=== PATIENT | male | born 1955 | race Caucasian/White ===

== ENCOUNTER → 2016-11-08 | Outpatient (CLI) | payer BC ==
--- NOTE | 2016-11-08 13:57 | XR ---
EXAMINATION TYPE: XR knee complete bilateral DATE OF EXAM: 11/08/2016 1:50 PM CLINICAL HISTORY: pain TECHNIQUE: Three views of the right knee are obtained. COMPARISON: None. FINDINGS: There is no acute fracture/dislocation. Mild narrowing the medial tibiofemoral joint space with intracondylar spur formation. Small upper pole patellar spur. The overlying soft tissue appears unremarkable. IMPRESSION: There is no acute fracture or dislocation. Degenerative changes as discussed. ICD 10 NO FRACTURE, INITIAL EVALUATION EXAMINATION TYPE: XR knee complete bilateral DATE OF EXAM: 11/08/2016 1:50 PM CLINICAL HISTORY: pain TECHNIQUE: Three views of the left knee are obtained. COMPARISON: None. FINDINGS: There is no acute fracture/dislocation. Mild narrowing medial tibiofemoral joint space. Mi ld intracondylar spur formation. Small suprapatellar spur and small suprapatellar joint effusion. The overlying soft tissue appears unremarkable. IMPRESSION: There is no acute fracture or dislocation. Degenerative changes as noted. ICD 10 NO FRACTURE, INITIAL EVALUATION
== END | disposition home or self-care (01) ==
LOC: MERGE 13:25 → RADXRMAIN 13:25
PROVIDERS: ATTEND Family Medicine
DX: M17.0 Bilateral primary osteoarthritis of knee (principal)

== ENCOUNTER → 2017-01-20 | Outpatient (CLI) | payer BC ==
--- NOTE | 2017-01-20 12:43 | EST ---
DATE OF SERVICE: 01/20/2017 AGE: 61Y SEX: M HT: 70 WT: 235 lbs. Protocol Yonathan: X Other: Stage: II Dur. of Exercise: 6 minutes *Heart Rate Blood Pressure *Rest: 82 Rest: 141/91 * *Max. Achieved: 134 Maximum BP: 199/90 85% PMHR: 134 100% PMHR: 158 *METS: 7.3 INDICATION OF THE STUDY: Chest pain. MEDICATIONS: STRESS TEST: Pretesting physical examination showed heart rate of 82, pressure is 141/91 mmHg, Baseline EKG shows sinus mechanism. The patient exercised on the treadmill according to Yonathan protocol for a total of 6 minutes and achieved 7.3 METs. Max heart rate was 134, which is about 85% of maximum predicted heart rate. Maximum blood pressure was 199/90 mmHg. Clinically, the patient did not have any symptoms of chest pain or discomfort, but there was about [address] segment changes during the peak exercise. CONCLUSION: 1. Average exercise capacity. 2. Abnormal EKG in response to exercise with evidence of ST changes consistent with ischemia.
== END | disposition home or self-care (01) ==
LOC: MERGE 01-03 11:15 → RADNMMAIN 10:06
PROVIDERS: ATTEND Family Medicine
DX: R94.31 Abnormal electrocardiogram [ECG] [EKG] (principal); I10 Essential (primary) hypertension; R53.83 Other fatigue
CPT/HCPCS: 93017

== ENCOUNTER → 2017-01-21 | Outpatient (CLI) | payer BC ==
[2017-01-21 16:07] LABS: CH 31.4; CHCM 34.1; HCT 51.3 % (39.0-53.0); HDW 2.65; HGB 17.1 gm/dL (13.0-17.5); MCH 30.8 pg (25.0-35.0); MCHC 33.3 g/dL (31.0-37.0); MCV 92.6 fL (80.0-100.0); Mean Platelet Volume 8.3; RBC 5.54 m/uL (4.30-5.90); RDW 13.6 % (11.5-15.5); WBC 6.4 k/uL (3.8-10.6)
[2017-01-21 16:23] LABS: Anion Gap 13 mmol/L; Blood Urea Nitrogen 17 mg/dL (9-20); Carbon Dioxide 23 mmol/L (22-30); Chloride 104 mmol/L (98-107); Non-African American GFR(MDRD) >60 (>60 ml/min/1.73 sqM); Potassium 4.5 mmol/L (3.5-5.1); Sodium 140 mmol/L (137-145)
== END ==
LOC: LABPAT 15:18
PROVIDERS: ATTEND Internal Medicine Interventional Cardiology
DX: Z01.812 Encounter for preprocedural laboratory examination (principal); R94.30 Abnormal result of cardiovascular function study, unspecified
CPT/HCPCS: 80051; 82565; 84520; 85027

== ENCOUNTER 2017-01-28 08:39 | Day surgery (SDC) | payer BC ==
[2017-01-25 15:19] VITALS: BMI 31.8
[~2017-01-28 08:39] MED LIST: ALPRAZolam 0.25 MG TAB PO PRN; ALPRAZolam 0.5 MG TAB PO PRN; ASPIRIN 325 MG TAB PO STA; ATORVASTATIN 80 MG TAB PO STA; NITROGLYCERIN SL TABS 0.4 MG TAB SUBLINGUAL PRN; SODIUM CHLORIDE 0.9% 1,000 ML in EMPTY BAG 1 BAG IV ONE
[2017-01-28 09:46] VITALS: PULSE 60; TEMP 98.4
[2017-01-28] MEDS ORDERED: VERAPAMIL 2.5 MG/ML 2 ML AMP ONE (10:35)
[2017-01-28] MEDS ORDERED: MIDAZOLAM 2 MG/2 ML VIAL ONE (10:35)
[2017-01-28] MEDS ORDERED: LIDOCAINE 2% INJ 20 MG/ML (20 ML MDV) ONE (10:35)
[2017-01-28] MEDS ORDERED: IV FLUID CONTINUATION 1,000 ML IV ONE (10:41)
[2017-01-28] MEDS ORDERED: MIDAZOLAM 2 MG/2 ML VIAL IVP ONE (10:43)
[2017-01-28] MEDS ORDERED: LIDOCAINE 2% INJ 20 MG/ML SQ ONE (10:53)
[2017-01-28] MEDS: VERAPAMIL SYRINGE (5 MG/10 ML) INTRAARTER ONE ×2 (10:55→11:17)
[2017-01-28] MEDS ORDERED: HEPARIN SODIUM 1,000 UNIT/ML VIAL IV ONE (10:56)
[2017-01-28] MEDS ORDERED: HYDROmorphone 2 MG/ML 1 ML SYRINGE ONE (11:03)
[2017-01-28] MEDS ORDERED: HYDROmorphone 2 MG/ML 1 ML SYRINGE IVP ONE (11:04)
[2017-01-28] MEDS ORDERED: NITROGLYCERIN 1000MCG/10ML SYRINGE INTRACORON ONE (11:05)
[2017-01-28] MEDS ORDERED: IOHEXOL 350 MG/ML 125ML BOTTLE INJ ONE (11:17)
[2017-01-28] MEDS ORDERED: RX INFO: IV CONTRAST WAS GIVEN 1 EACH MISC MISCELLANE PRN ×2 (11:35→11:36)
[2017-01-28] MEDS ORDERED: SODIUM CHLORIDE 0.9% 1,000 ML IV SCH (11:45)
[2017-01-28 16:19] VITALS: BP 143/82; RESP 18
--- NOTE | 2017-01-28 21:53 | CC ---
DATE OF SERVICE: 01/28/2017 PERFORMING PHYSICIAN: Reinaldo Frias M.D., forest technician. PROCEDURES PERFORMED: 1. Selective right and left coronary angiogram. 2. Left heart catheterization. 3. Left ventriculography. INDICATION: This is a pleasant 61-year-old gentleman who was feeling tired and fatigued lately. He underwent a stress test which turned out to be equivocal and he was brought today to undergo a heart catheterization to rule out any severe underlying CAD. APPROACH: Right radial artery. COMPLICATIONS: None. LEVEL OF SEDATION: Moderate, with a sedation length of 27 minutes. PROCEDURE DESCRIPTION: After obtaining informed consent, the patient was brought to the cardiac label printer. Right radial artery was cannulated using micropuncture technique. The micropuncture wire passed easily. Then I placed a 6 Ghanaian sheath in the right radial artery. Subsequently I gave the patient 2 mg of Verapamil IA and 3000 units of heparin IV. After that I did selective right and left coronary angiogram using JR4 and JL3.5 5 Ghanaian catheters. Subsequently I did left heart catheterization and LV gram using a 5 Ghanaian pigtail catheter. The procedure was completed without any complications. SELECTIVE CORONARY ANGIOGRAM: 1. The right coronary artery is a large-caliber vessel and it is a dominant vessel. The proximal RCA appeared to have mild disease only. The mid RCA has a tubular lesion that seems to be diseased up to about 70%. The RCA distally by the bifurcation into PDA and PLV branches appeared to have a severe lesion in the range of 80%. The PLV branch seems to be bigger than the PDA branch and appeared to have mild disease only. 2. The left main is angiographically normal. It bifurcates into the left circumflex, ramus intermedius and left anterior descending artery. 3. The left circumflex is a medium-caliber vessel and it is a non-dominant vessel. The ostial left circumflex appeared to have a lesion in the range of 70%. The mid and distal left circumflex appeared to have mild disease only. As I mentioned, the left circumflex is a small- to medium-caliber vessel. 4. The ramus intermedius is a medium-caliber vessel with ostial disease that seems to be in the range of 50%. 5. The LAD. The proximal LAD by the bifurcation of the diagonal appeared to have a tubular lesion in the range of 50%. The LAD in the proximal portion gives rise to a large diagonal branch which has a long tubular lesion involving the ostium that appeared to be in the range of 80% to 90%. The mid LAD appeared to have mild disease only. The mid to distal LAD after the second diagonal, which is a medium-sized diagonal, appeared to have another lesion in the range of 80% to 90%. HEMODYNAMICS: The left ventricular end-diastolic pressure was 10 mmHg, and no gradient was identified across the aortic valve. Left ventriculography was performed in the SALAZAR projection using a power injection. The left ventricular systolic function seems to be normal with EF about 50% without any wall motion abnormalities noted. CONCLUSION: 1. Severe triple-vessel coronary artery disease. 2. Severe disease involving the mid and distal right coronary artery. 3. Severe disease involving the ostial left circumflex, which is a small- to medium-caliber vessel. 4. Severe disease involving the ostial and proximal large first diagonal branch. 5. Severe disease involving the mid to distal LAD. POST-PROCEDURE MANAGEMENT: I will let the patient go home today. I will refer for the patient to have open heart surgery as an outpatient.
--- NOTE | 2017-01-28 21:55 | LTR ---
January 28, 2017 RE: Pro Chen Sahil Dear Valdo, Mr. Pro Chen underwent heart catheterization that showed severe triple-vessel coronary artery disease. I am going to refer the patient to undergo coronary artery bypass grafting as an outpatient. I want to thank you for allowing me to participate in his care. Please do not hesitate to call with any questions or concerns. Sincerely, VERONICA HARRISON MD
--- NOTE | 2017-02-11 14:13 | P.GSCN ---
History of Present Illness Consult date: 02/02/17 Reason for Consult: Multivessel coronary artery disease with need for surgical revascularization. Requesting physician: Reinaldo Frias History of present illness: This 62-year-old gentleman presented to cardiology office for a stress test after his primary care physician noted he had exertional dyspnea and increased fatigue. He denied any chest pain or discomfort and his EKG demonstrated sinus rhythm without any ischemic changes. The stress test was abnormal and Dr. Frias recommended heart catheterization. The catheterization was performed on 2016, which demonstrated a tubular lesion of 70% in the mid RCA, the distal RCA at the bifurcation into the PDA and PLV branches with a lesion of 80%, an ostial left circumflex with a lesion of 70%, ramus intermedius with an ostial lesion of 50%, proximal LAD at the bifurcation of the diagonal branch with a tubular lesion of 50%, a large diagonal branch with a long tubular lesion of 80- 90% and a mid to distal LAD after the second diagonal to have a lesion of 80-90% . Due to these findings, the patient was referred to Dr. Gonzalez for surgical revascularization. Review of Systems 14 point review of systems is completed and is negative except as noted. - Cardiovascular Reports as per HPI Past Medical History Past Medical History: Hypertension Additional Past Medical History / Comment(s): currently not taking any medications History of Any Multi-Drug Resistant Organisms: None Reported Past Surgical History: Orthopedic Surgery, Tonsillectomy Additional Past Surgical History / Comment(s): rt knee scope. colonoscopy. lt rotator cuff repair Past Anesthesia/Blood Transfusion Reactions: No Reported Reaction Smoking Status: Never smoker - Past Family History Mother Family Medical History: No Reported History Medications and Allergies Home Medications Medication Instructions Recorded Confirmed Type Aspirin 325 cap PO ONCE 01/28/17 01/28/17 History Losartan Potassium [Cozaar] 100 mg PO ONCE 01/28/17 01/28/17 History Allergies Allergy/AdvReac Type Severity Reaction Status Date / Time No Known Allergies Allergy Verified 01/25/17 15:10 Surgical - Exam Vital Signs Temp Pulse Resp BP Pulse Ox 98.4 F 60 20 166/99 99 01/28/17 09:44 01/28/17 09:44 01/28/17 09:44 01/28/17 09:44 01/28/17 09:44 - General well developed, well nourished, no distress, no pain - Eyes PERRL, normal ocular movement - ENT no hearing loss - Neck trachea midline - Respiratory normal expansion, normal respiratory effort, clear to auscultation - Cardiovascular Rhythm: regular Heart Sounds: normal: S1, S2 - Abdomen Abdomen: soft, non tender, bowel sounds - Genitourinary Deferred - Rectum Deferred - Integumentary no rash, no growths - Neurologic normal coordination, normal sensation - Musculoskeletal normal gait, normal posture - Psychiatric oriented to time, oriented to person, oriented to place, speech is normal, memory intact Assessment and Plan (1) Coronary artery disease Status: Acute (2) Hypertension Status: Acute Plan: The patient was seen and examined by Dr. Gonzalez. Heart catheterization results were reviewed with the patient and his . Recommendations were made for coronary artery bypass graft surgery. All risks and benefits were explained in detail by Dr. Gonzalez. The patient demonstrated understanding and consented to proceed with surgery. Preoperative testing was ordered. Our plan is for coronary artery bypass grafting surgery on 02/28/2017 pending the outcome of preoperative testing. Thank you Dr. Frias for this consult. We look forward to working with you in the care of your patient. Time with Patient: Greater than 30
== END 2017-01-28 16:39 | disposition home or self-care (01) ==
LOC: CATHCVL 08:39
PROVIDERS: ATTEND Internal Medicine Interventional Cardiology
DX: I25.110 Atherosclerotic heart disease of native coronary artery with unstable angina pectoris (principal); I10 Essential (primary) hypertension
CPT/HCPCS: 93458; 99152; 99153; C1894; J2001; J2250; J1170; J1644; Q9967

== ENCOUNTER → 2017-02-22 | Outpatient (CLI) | payer BC ==
[2017-02-22 08:41] LABS: EKG EKG PERFORMED
[2017-02-22 10:02] LABS: CH 30.6; CHCM 34.9; HCT 47.8 % (39.0-53.0); HDW 2.89; HGB 17.1 gm/dL (13.0-17.5); MCH 31.4 pg (25.0-35.0); MCHC 35.7 g/dL (31.0-37.0); Mean Platelet Volume 7.8; RBC 5.43 m/uL (4.30-5.90); RDW 12.9 % (11.5-15.5); WBC 7.3 k/uL (3.8-10.6)
[2017-02-22 10:06] LABS: Appearance,Urine Clear (Clear); Bilirubin,Urine Negative (Negative); Glucose,Urine (UA) Negative (Negative); Ketones,Urine Negative (Negative); Leukocyte Esterase,Urine Negative (Negative); Nitrite,Urine Negative (Negative); PH, Urine 5.5 (5.0-8.0); Protein,Urine Negative (Negative); Specific Gravity,Urine 1.003 (1.001-1.035); UA Billing (MACRO vs. MICRO) CHEM; Urobilinogen,Urine <2.0 mg/dL (<2.0)
[2017-02-22 10:09] LABS: INR 0.9 (<1.1); Prothrombin Time 9.7 sec (9.0-12.0)
[2017-02-22 10:31] LABS: ALT 71 U/L (21-72); AST 32 U/L (17-59); Alkaline Phosphatase 124 U/L (38-126); Anion Gap 12 mmol/L; Blood Urea Nitrogen 14 mg/dL (9-20); Calcium 9.7 mg/dL (8.4-10.2); Carbon Dioxide 26 mmol/L (22-30); Chloride 101 mmol/L (98-107); Cholesterol 119 mg/dL (<200); Glucose 98 mg/dL (74-99); HDL Cholesterol 38 mg/dL (40-60); Magnesium 2.2 mg/dL (1.6-2.3); Non-African American GFR(MDRD) >60 (>60 ml/min/1.73 sqM); Sodium 139 mmol/L (137-145); Total Bilirubin 0.9 mg/dL (0.2-1.3); Total Protein 7.1 g/dL (6.3-8.2); Triglycerides 117 mg/dL (<150)
[2017-02-22 12:06] LABS: Hemoglobin A1C 5.5 % (4.2-6.1)
[2017-02-22 12:35] LABS: Hepatitis B Surface Ag Index 0.05
[2017-02-22 12:41] LABS: Hepatitis B Core IgM Index 0.03
[2017-02-22 12:53] LABS: Hepatitis C Virus IgG Ab Negative (Negative); Hepatitis C Virus IgG Index 0.04
--- NOTE | 2017-02-22 15:18 | XR ---
EXAMINATION TYPE: XR chest 2V DATE OF EXAM: 02/22/2017 COMPARISON: Prior chest x-ray 07/22/2016 HISTORY: Presurgical, preop coronary artery bypass graft TECHNIQUE: Frontal and lateral views of the chest are obtained. FINDINGS: There is no focal air space opacity, pleural effusion, or pneumothorax seen. The cardiac silhouette size is within normal limits. Postop change noted to the left shoulder. The osseous stru ctures are intact. IMPRESSION: No acute cardiopulmonary process.
--- NOTE | 2017-03-02 10:19 | P.ARTDOP ---
Arterial Doppler LOWER EXTREMITY ARTERIAL DOPPLER: DATE OF SERVICE: 02/22/2017 Reason for study: Pre-CABG. Doppler waveforms: Altered phasic bilaterally throughout. Pulse volume recording: Normal configuration. Pressure gradients: None. Ankle-brachial indices: Greater than 1 bilaterally. Toe pressures: [] on the right, [] on the left Impression: Normal study.
--- NOTE | 2017-03-02 10:22 | P.VSCSTY ---
Greater Saphenous Vein Mapping This is bilateral lower extremity greater saphenous vein mapping. Date of service 02/22/2017 Vein quality and ultrasound appearance normal. Vein size groin right 4 x 4 groin left 4.5 x 4.5 High thigh right 4.6 x 3.4 high thigh left 4.0 x 3.3 Mid thigh right 2.5 x 2.9 mid thigh left 3.8 x 3.3 Above-knee right 2.4 x 2.0 above- knee left 2.4 x 2.4 Below knee right 1.7 x 2.0 below-knee left 2.8 x 2.1 Mid calf right 3.2 x 2.9 mid calf left 4.0 x 3.9 Ankle right 3.2 x 2.9 ankle left 4.1 x 4.3 Impression usable bilateral greater saphenous vein. Left somewhat more consistent in size. Left at the knee and below my be a bit small..
== END | disposition home or self-care (01) ==
LOC: LABWHC1 08:33
PROVIDERS: ATTEND Thoracic Surgery (Cardiothoracic Vascular Surgery)
DX: Z01.810 Encounter for preprocedural cardiovascular examination (principal); Z01.818 Encounter for other preprocedural examination
CPT/HCPCS: 36415; 71020; 80053; 80061; 80074; 81003; 83036; 83735; 83880; 84443; 84484; 85027; 85610; 85730; 87070; 87086; 93005; 93923; 93970; 94150

== ENCOUNTER 2017-02-28 05:46 | Inpatient (IN) | payer BC ==
[2017-02-17 15:58] VITALS: BMI 31.8
[~2017-02-28 05:46] MED LIST changes: +ALBUMIN HUMAN 25% 50 ML IV ONE; +ALBUMIN HUMAN 5% 500 ML IVPB ONE; -ALPRAZolam 0.25 MG TAB PO PRN; -ALPRAZolam 0.5 MG TAB PO PRN; +AMINOCAPROIC ACID 250 MG/ML 20 ML VIAL IV ONE; +AMINOCAPROIC ACID 5,000 MG in DEXTROSE 5% IN WATER 50 ML IV ONE; +ASPIRIN 325 MG TAB PO ONE; -ASPIRIN 325 MG TAB PO STA; +ATORVASTATIN 10 MG TAB PO ONE; -ATORVASTATIN 80 MG TAB PO STA; +CALCIUM CHLORIDE 100 MG/ML 10 ML SYRINGE IV ONE; +CHLORHEXIDINE GLUCONATE 15 ML CUP MUCOUS MEM ONE; +CLEVIDIPINE BUTYRATE 25 MG in EMPTY BAG 1 BAG IV ONE; +DEXTROSE 5% IN WATER 1,000 ML with POTASSIUM CHLORIDE 110 MEQ, MAGNESIUM SULFATE 16 MEQ... IV SCH; +DEXTROSE 5% IN WATER 1,000 ML with POTASSIUM CHLORIDE 25 MEQ, SODIUM CHLORIDE 4MEQ/ML V... IV SCH; +DEXTROSE 5% IVPB ONE; +DILTIAZEM 125 MG in SODIUM CHLORIDE 0.9% 100 ML IV ONE; +HEPARIN SODIUM 1,000 UN/ML (10ML VL) IV ONE; +HEPARIN SODIUM,PORCINE 5,000 UNIT in SODIUM CHLORIDE 0.9% 500 ML IV ONE; +INSULIN REGULAR 100 UNIT in SODIUM CHLORIDE 0.9% 100 ML IV ONE; +MAGNESIUM SULFATE IVPB ONE; +MAGNESIUM SULFATE MG 500 MG/ML VIAL IV ONE; +MANNITOL 25% 12.5 GM/50 ML VIAL IV ONE; -NITROGLYCERIN SL TABS 0.4 MG TAB SUBLINGUAL PRN; +NITROGLYCERIN-D5W PMX 25 MG/250 ML BTL IV ONE; +NITROGLYCERIN-D5W PMX 50 MG in DEXTROSE/WATER 1 250ML.BAG IV ONE; +NOREPINEPHRIN 4 MG-0.9% NS PMX 4 MG/250 ML ML IV ONE; +PAPAVERINE 360 MG in SODIUM CHLORIDE 0.9% 90 ML IV ONE; +PHENYLEPHRINE 40 MG in SODIUM CHLORIDE 0.9% 250 ML IV ONE; +PHENYLEPHRINE-0.9% NACL SYG 1 MG/10 ML SYRINGE IV ONE; +POTASSIUM CHLORIDE IVPB ONE; +PROPOFOL 100 ML IV ONE; +PROTAMINE SULFATE 10 MG/ML 25 ML VIAL IV ONE; +PROTAMINE SULFATE 250 MG in EMPTY BAG 1 BAG IV ONE; +SODIUM BICARB 8.4% 50 ML SYR (1 MEQ/ML) IV ONE; -SODIUM CHLORIDE 0.9% 1,000 ML in EMPTY BAG 1 BAG IV ONE; +WATER IVPB ONE; +ceFAZolin 1,000 MG in SODIUM CHLORIDE 0.9% IRRIGATIO 1,000 ML IRRIGATION ONE; +ceFAZolin 2,000 MG in SODIUM CHLORIDE 0.9% 30 ML IVPB ONE
[2017-02-28] MEDS: METOPROLOL TARTRATE 12.5 MG TAB PO ONE (06:34)
[2017-02-28] MEDS ORDERED: MIDAZOLAM 2 MG/2 ML VIAL ONE (08:42)
[2017-02-28] MEDS ORDERED: VECURONIUM 10 MG VIAL IV ONE (08:42)
[2017-02-28] MEDS ORDERED: diphenhydrAMINE 50 MG/ML 1 ML VIAL ONE (08:42)
[2017-02-28] MEDS ORDERED: HEPARIN SODIUM,PORCINE 10,000 UNIT/ML 1 ML VIAL ONE (08:42)
[2017-02-28] MEDS ORDERED: SUFentanil 50 MCG/ML 2ML AMP ONE (08:42)
[2017-02-28] MEDS ORDERED: PROPOFOL 10 MG/ML 20 ML VIAL IV ONE (08:42)
[2017-02-28] MEDS ORDERED: fentaNYL (PF) 50 MCG/ML 50 ML VIAL ONE (08:42)
[2017-02-28] MEDS ORDERED: SUCCINYLCHOLINE CHLORIDE 100 MG/5 ML SYR IV ONE (08:42)
[2017-02-28] MEDS ORDERED: fentaNYL (PF) 50 MCG/ML 2 ML AMP ONE (08:42)
[2017-02-28] MEDS ORDERED: MUPIROCIN 2% OINT 22 GM TUBE NASAL SCH (09:00)
[2017-02-28 09:35] LABS: Glucose,Whole Blood 115 mg/dL (75-99)
[2017-02-28 11:14] LABS: Glucose,Whole Blood 111 mg/dL (75-99)
[2017-02-28 11:53] LABS: Glucose,Whole Blood 189 mg/dL (75-99)
[2017-02-28 12:07] LABS: Glucose,Whole Blood 187 mg/dL (75-99)
[2017-02-28 13:03] LABS: Glucose,Whole Blood 159 mg/dL (75-99)
[2017-02-28] MEDS ORDERED: THROMBIN (BOVINE) 5,000 UNIT VIAL TOPICAL ONE (13:06)
[2017-02-28] MEDS ORDERED: GELATIN SPONGE,ABSORB (LARGE) 1 EACH SPONGE TOPICAL ONE (13:07)
[2017-02-28 14:02] LABS: Glucose,Whole Blood 128 mg/dL (75-99)
[2017-02-28] MEDS ORDERED: INSULIN REGULAR 100 UNIT in SODIUM CHLORIDE 0.9% 100 ML IV SCH (15:15)
[2017-02-28] MEDS: LACTATED RINGERS 1,000 ML IV SCH (15:15)
[2017-02-28] MEDS: DILTIAZEM 125 MG in SODIUM CHLORIDE 0.9% 100 ML IV SCH (15:15)
[2017-02-28] MEDS ORDERED: ALBUMIN HUMAN 5% 250 ML in EMPTY BAG 1 BAG IVPB PRN (15:28)
[2017-02-28] MEDS ORDERED: NITROGLYCERIN-D5W PMX 50 MG in DEXTROSE/WATER 1 250ML.BAG IV SCH (15:28)
[2017-02-28] MEDS ORDERED: Potassium Replacement Protocol 1 EACH MISC MISCELLANE PRN (15:28)
[2017-02-28] MEDS ORDERED: METOCLOPRAMIDE 5 MG/ML 2 ML VIAL IVP PRN (15:28)
[2017-02-28] MEDS ORDERED: BENZOCAINE/MENTHOL LOZENG 1 EACH LOZENGE MUCOUS MEM PRN (15:28)
[2017-02-28] MEDS ORDERED: Phosphorus Replacement Protoco 1 EACH MISC MISCELLANE PRN (15:28)
[2017-02-28] MEDS ORDERED: Magnesium Replacement Protocol 1 EACH MISC MISCELLANE PRN (15:28)
[2017-02-28] MEDS ORDERED: CALCIUM GLUCONATE 2,000 MG in SODIUM CHLORIDE 0.9% 100 ML IVPB PRN (15:28)
[2017-02-28] MEDS ORDERED: MORPHINE SULFATE 2 MG/ML SYRINGE IVP PRN (15:28)
[2017-02-28 15:36] LABS: Glucose,Whole Blood 88 mg/dL (75-99)
[2017-02-28 15:40] LABS: Basophils % (A) 0 %; CH 31.1; CHCM 34.8; Eosinophils # (A) 0.1 k/uL (0-0.7); Eosinophils % (A) 1 %; HCT 34.4 % (39.0-53.0); HDW 2.82; Luc # (Auto) 0.03; Luc % (Auto) 0; Lymphocytes # (A) 0.8 k/uL (1.0-4.8); Lymphocytes % (A) 10 %; MCH 31.3 pg (25.0-35.0); MCHC 34.8 g/dL (31.0-37.0); MCV 89.9 fL (80.0-100.0); Mean Platelet Volume 9.5; Monocytes # (A) 0.3 k/uL (0-1.0); Monocytes % (A) 4 %; Neutrophils % (A) 85 %; RBC 3.83 m/uL (4.30-5.90); RDW 13.2 % (11.5-15.5); WBC 8.3 k/uL (3.8-10.6); WBC (Perox) 7.82
[2017-02-28 15:44] LABS: ABG Base Excess -1.5 mmol/L; ABG HCO3 22 mmol/L (21-25); ABG PCO2 35 mmHg (35-45); ABG PH 7.43 (7.35-7.45); ABG PO2 228 mmHg (83-108); ABG TCO2 23 mmol/L (19-24)
[2017-02-28 15:49] LABS: INR 1.1 (<1.2); Partial Thromboplastin Time 25.8 sec (22.0-30.0); Prothrombin Time 11.3 sec (9.0-12.0)
[2017-02-28] MEDS: IPRATROPIUM-ALBUTEROL 3 ML NEB INHALATION SCH ×3 (15:50→23:08)
--- NOTE | 2017-02-28 15:54 | XR ---
EXAMINATION TYPE: XR chest 1V portable DATE OF EXAM: 02/28/2017 CLINICAL HISTORY: Post open cardiac surgery. TECHNIQUE: Single AP portable upright view of the chest is obtained. COMPARISON: Chest x-ray from February 22, 2017 FINDINGS: There is new endotracheal tube with tip at superior aortic knob level, approximately 6 cm above the ira . There is mediastinal drainage catheter and left basilar chest tube. Post CABG faustin ges with mediastinal clips and sternal wires is present. There is right internal jugular Lehighton-Cornel ca theter with tip centrally likely and pulmonary outflow track. Cardiac silhouette size is more prominent with left basilar atelectasis and/or infiltrate. There is m oderate size right upper lung pneumothorax with opacified right upper lobe suggesting complete atelec tatic collapse. Subtle mediastinal shift to the right is present. IMPRESSION: 1. Moderate right upper lung pneumothorax with completely collapsed or atelectatic right upper lobe a nd right-sided volume loss. 2. Other postsurgical changes with tubes and lines felt satisfactory in position. There is increased cardiac prominence with left basilar atelectasis and/or infiltrate noted. Finding of moderate size right upper lung pneumothorax communicated to ICU nurse at time of dictation .
[2017-02-28 15:55] LABS: Ionized Calcium 4.7 mg/dL (4.5-5.3)
[2017-02-28 16:05] LABS: ALT 40 U/L (21-72); AST 43 U/L (17-59); Alkaline Phosphatase 54 U/L (38-126); Anion Gap 9 mmol/L; Blood Urea Nitrogen 12 mg/dL (9-20); Calcium 7.8 mg/dL (8.4-10.2); Carbon Dioxide 24 mmol/L (22-30); Chloride 108 mmol/L (98-107); Glucose 83 mg/dL (74-99); Magnesium 2.5 mg/dL (1.6-2.3); Non-African American GFR(MDRD) >60 (>60 ml/min/1.73 sqM); Potassium 4.1 mmol/L (3.5-5.1); Sodium 141 mmol/L (137-145); Total Bilirubin 0.8 mg/dL (0.2-1.3); Total Protein 4.8 g/dL (6.3-8.2)
[2017-02-28 16:09] LABS: Glucose,Whole Blood 99 mg/dL (75-99)
--- NOTE | 2017-02-28 16:51 | XR ---
EXAMINATION TYPE: XR chest 1V portable DATE OF EXAM: 02/28/2017 COMPARISON: Today HISTORY: Postop TECHNIQUE: Single frontal view of the chest is obtained. FINDINGS: There is right upper lobe atelectasis and probably 40% right pneumothorax. Endotracheal tu be is in good position. There is right jugular catheter with the tip in the right pulmonary artery. T here are chest leads. There is no heart failure. IMPRESSION: Right pneumothorax that is unchanged from the exam one hour ago. No evidence of tension.
[2017-02-28] MEDS: ceFAZolin 2 GM in SODIUM CHLORIDE 0.9% 100 ML IVPB SCH ×2 (17:02→23:59)
[2017-02-28 17:03] LABS: Glucose,Whole Blood 115 mg/dL (75-99)
[2017-02-28] MEDS ORDERED: ALBUMIN HUMAN 5% 250 ML in EMPTY BAG 1 BAG IVPB ONE (17:30)
[2017-02-28] MEDS ORDERED: CISATRACURIUM 2 MG/ML 5 ML VIAL IV ONE (17:35)
--- NOTE | 2017-02-28 17:39 | XR ---
EXAMINATION TYPE: XR chest 1V portable DATE OF EXAM: 02/28/2017 COMPARISON: Today HISTORY: Follow-up pneumothorax TECHNIQUE: Single frontal view of the chest is obtained. FINDINGS: There is an approximate 40% right pneumothorax. There is right upper lobe atelectasis. Rig ht jugular catheter has tip in the right pulmonary artery. Endotracheal tube is in good position. The re is nasogastric tube in good position. There is left chest tube noted. IMPRESSION: Right pneumothorax without evidence of tension. No change compared to the exam one hour ago.
[2017-02-28] MEDS ORDERED: NOREPINEPHRIN 4 MG-0.9% NS PMX 4 MG/250 ML ML IV SCH (18:00)
[2017-02-28 18:04] LABS: Glucose,Whole Blood 123 mg/dL (75-99)
[2017-02-28 18:06] LABS: Basophils % (A) 0 %; CH 31.2; CHCM 34.4; Eosinophils # (A) 0.1 k/uL (0-0.7); Eosinophils % (A) 1 %; HCT 35.4 % (39.0-53.0); HDW 2.87; HGB 11.9 gm/dL (13.0-17.5); Luc # (Auto) 0.06; Luc % (Auto) 0; Lymphocytes # (A) 0.8 k/uL (1.0-4.8); Lymphocytes % (A) 6 %; MCH 30.7 pg (25.0-35.0); MCHC 33.7 g/dL (31.0-37.0); Mean Platelet Volume 8.1; Monocytes # (A) 0.6 k/uL (0-1.0); Monocytes % (A) 5 %; Neutrophils % (A) 88 %; RBC 3.89 m/uL (4.30-5.90); RDW 13.4 % (11.5-15.5); WBC 13.6 k/uL (3.8-10.6); WBC (Perox) 13.35
--- NOTE | 2017-02-28 18:14 | P.CNPUL ---
History of Present Illness Consult date: 02/28/17 Chief complaint: Right upper lobe atelectasis History of present illness: [id number] male patient with multivessel coronary artery disease and an abnormal stress test was having chest pain and further cardiac catheterization showing multivessel coronary artery disease. Patient has a preserved LV function. The patient was taken to the operating room today and he underwent and he had four-vessel bypass surgery including SOSA to LAD. The surgery went fine and following that the patient was brought into the intensive care unit intubated on a mechanical ventilator. At this point in time the patient is on SIMV mode with a rate of 14, tidal volume of 600, FiO2 has been weaned down to 60% with a PEEP of 8. Immediate postoperative chest x-ray showed questionable loculated right upper lobe pneumothorax versus atelectasis of the right upper lobe. Chest x-ray was repeated and after bagging and recruiting maneuvers the abnormality remains unchanged. Based on that, a bedside bronchoscopy was done and limited mucous plug was seen to obstructive the orifice of the right upper lobe. Therapeutic airway suctioning was done. Subsequent chest x-ray showed improvement in the volume status. At this point in time, the patient is on 100 % FiO2 with a PEEP of 8. Hemodynamically his cardiac index of 2.2, pulmonary artery pressure of 46/23, he is on 2 mics of levo fed, 65 mics of the prevent, insulin drip for blood sugar control, Cardizem and nitroglycerin drip were placed on hold as the patient's blood pressure dropped and he is currently on few mics of levo fed as mentioned. Urine output is adequate. The patient is a mediastinal chest tube that showed no evidence of air leak. The patient also has a left pleural chest tube without evidence of air leak and the total amount of output from the pleural chest tube is approximately 350 since he arrived from the operating room. Apparently the output was high initially and improved as arrived to the ICU. Review of Systems ROS unobtainable: due to endotracheal tube Past Medical History Past Medical History: Coronary Artery Disease (CAD), Hyperlipidemia, Hypertension, Sleep Apnea/CPAP/BIPAP Additional Past Medical History / Comment(s): Multivessel coronary artery disease, hypertension, sleep apnea not utilizing CPAP therapy, degenerative arthritis History of Any Multi-Drug Resistant Organisms: None Reported Past Surgical History: Heart Catheterization, Orthopedic Surgery, Tonsillectomy Additional Past Surgical History / Comment(s): rt knee scope,colonoscopy. lt rotator cuff repair Past Anesthesia/Blood Transfusion Reactions: No Reported Reaction Smoking Status: Never smoker - Past Family History Mother Family Medical History: No Reported History Medications and Allergies Home Medications Medication Instructions Recorded Confirmed Type Aspirin 325 cap PO ONCE 01/28/17 02/28/17 History Losartan Potassium [Cozaar] 100 mg PO DAILY 01/28/17 02/28/17 History Atorvastatin [Lipitor] 80 mg PO HS 02/28/17 02/28/17 History Allergies Allergy/AdvReac Type Severity Reaction Status Date / Time No Known Allergies Allergy Verified 02/28/17 06:10 Physical Exam Vitals: Vital Signs Temp Pulse Pulse Resp BP BP Pulse Ox 02/28/17 17:00 69 12 100 02/28/17 16:13 77 02/28/17 16:00 72 12 100 02/28/17 15:54 75 02/28/17 15:45 73 12 100 02/28/17 15:30 73 12 99 02/28/17 06:00 98.3 F 68 16 139/81 125/72 97 Intake and Output 02/28/17 02/28/17 02/28/17 06:59 14:59 22:59 Intake Total 50 Output Total 3400 770 Balance -3400 -720 Intake: IV 50 Lactated Ringers 1,000 ml 50 @ 50 mls/hr IV .Q20H [facility] Rx#:[id number] Output: Chest Tube Drainage 220 Chest Tube Left Lateral 100 Chest Chest Tube Mediastinal 120 Urine 1900 550 Estimated Blood Loss 1500 Other: Voiding Method Indwelling Catheter ABP, PAP, CO, CI - Last 8 Hours Arterial Blood Pressure 112/62 Arterial Blood Pressure 143/66 Arterial Blood Pressure 128/66 Arterial Blood Pressure 0/0 Pulmonary Artery Pressure 37/21 Pulmonary Artery Pressure 39/20 Pulmonary Artery Pressure 40/19 Pulmonary Artery Pressure 35/18 Pulmonary Artery Pressure 36/18 Cardiac Output 4.7 Cardiac Output 5.8 Cardiac Output 5.8 Cardiac Output 5.8 Cardiac Output 5.8 Cardiac Index 2.1 Cardiac Index 2.5 Head exam was generally normal. There was no scleral icterus or corneal arcus. Mucous membranes were moist.Neck was supple and without jugular venous distension, thyromegaly, or carotid bruits. Carotids were easily palpable bilaterally. There was no adenopathy. The patient has a right IJ Cordis and Downs-Cornel catheter in place. The patient is intubated and orogastric and orotracheal tube are both in place. Lung sounds are equal and symmetrical bilaterally. Some limited rhonchi. No wheezes. Chest tubes are all in place. Heart sounds are regular, positive S1-S2 and there is a friction rub can be heard throughout the precordium.Abdominal exam revealed normal bowel sounds. The abdomen was soft, non-tender, and without masses, organomegaly, or appreciable enlargement of the abdominal aorta.Examination of the extremities revealed easily palpable radial, femoral and pedal pulses. There was no cyanosis , clubbing or edema. Results - Laboratory Findings CBC and BMP: 02/28/17 15:25 02/28/17 15:25 ABG ABG pH 7.43 (7.35-7.45) 02/28/17 15:40 ABG pCO2 35 mmHg (35-45) 02/28/17 15:40 ABG pO2 228 mmHg (83-108) H 02/28/17 15:40 ABG O2 Saturation 100.0 % (94-97) H 02/28/17 15:40 PT/INR, D-dimer PT 11.3 sec (9.0-12.0) 02/28/17 15:25 INR 1.1 (<1.2) 02/28/17 15:25 Abnormal lab findings: Abnormal Labs 02/22/17 02/28/17 02/28/17 09:05 09:32 10:53 RBC Hgb Hct Plt Count Lymphocytes # ABG pO2 ABG O2 Saturation Chloride POC Glucose (mg/dL) 115 H 111 H Calcium Magnesium Total Protein Albumin Crossmatch See Detail 02/28/17 02/28/17 02/28/17 11:37 12:03 13:01 RBC Hgb Hct Plt Count Lymphocytes # ABG pO2 ABG O2 Saturation Chloride POC Glucose (mg/dL) 189 H 187 H 159 H Calcium Magnesium Total Protein Albumin Crossmatch 02/28/17 02/28/17 02/28/17 14:01 15:25 15:25 RBC 3.83 L Hgb 12.0 L D Hct 34.4 L Plt Count 131 L D Lymphocytes # 0.8 L ABG pO2 ABG O2 Saturation Chloride 108 H POC Glucose (mg/dL) 128 H Calcium 7.8 L Magnesium 2.5 H Total Protein 4.8 L Albumin 3.0 L Crossmatch 02/28/17 02/28/17 02/28/17 15:40 17:02 18:02 RBC Hgb Hct Plt Count Lymphocytes # ABG pO2 228 H ABG O2 Saturation 100.0 H Chloride POC Glucose (mg/dL) 115 H 123 H Calcium Magnesium Total Protein Albumin Crossmatch - Diagnostic Findings Chest x-ray: image reviewed Assessment and Plan Plan: Assessment 1 multivessel coronary artery disease, status post four-vessel bypass surgery including SOSA to LAD. Patient is postop day #0 2 post thoracotomy, currently intubated on a mechanical ventilator 3 right upper lobe atelectasis status post bronchoscopy and therapeutic airway suctioning of a tiny mucous plug with expression of the right upper lobe 4 postop to hypotension currently off U mics of levo fed for hemodynamic support 5 obstructive sleep apnea, history of 6 hyperlipidemia, history of 7 hypertension, history of 8 insulin drip for blood sugar control Plan Continue weaning down the FiO2 as tolerated to maintain a saturation above 92%. Keep the PEEP at 8 at this point. Keep the patient sedated and gradually wean off sedation and this will be discharged dependent on the patient's hemodynamics and his respiratory status and oxygenation. Right upper lobe has partially expanded following the bronchoscopy. ET tube was positioned at 24 mm lip line and the confirmation was done endoscopically. Continue insulin drip. Continue levo fed. Continue monitoring the hemodynamics in the ICU. Monitor the output from the chest tube. We'll continue to follow make further recommendations based on his progress.
--- NOTE | 2017-02-28 18:20 | P.PCN ---
Date of Procedure: 02/28/17 Preoperative Diagnosis: Right upper lobe atelectasis Postoperative Diagnosis: Right upper lobe atelectasis Procedure(s) Performed: bronchoscopy and removal of a mucus plug Implants: Anesthesia: GETA Public Relations Supervisor #1: Ace Bazan Estimated Blood Loss (ml): 0 Pathology: none sent Condition: critical Disposition: ICU Indications for Procedure: RUL atelectasis Operative Findings: This procedure was done in the intensive care unit. The patient was already intubated on a mechanical ventilator. The patient was placed on on the percent FiO2 with a PEEP of 8. An adaptor was attached orotracheal tube to facilitate the procedure as the patient being oxygenated and ventilated. The patient was also sedated with Diprivan. The patient was given a total of 10 mg of IV Nimbex for paralysis. The flexible bronchoscope was easily passed through the adapter and orotracheal tube and was advanced into the lower trachea. The tip of the ET tube was seen around 1 cm above the ira. At this point in time airway inspection was initiated. There was some retained rest or secretions within the orotracheal tubes that were easily suctioned out. There was no significant abnormalities in the ira was sharp in the midline. Examination of right main stem bronchus showed some limited it for secretions that were suctioned out and there was a mucous plug that was obstructing the right upper lobe bronchus that was easily identified and suctioned out without any major difficulties. Airway inspection was completed in the right upper lobe and the right upper lobe subsegments were somewhat atelectatic. Saline was infused in the order of 40 mL and was suctioned out and this further enhance the patency of the various segments of the right upper lobe. The anterior apical and posterior segments were all visualized. Examination of the bronchus intermedius , right middle lobe and the right lower lobe bronchus and the various segments were within normal limits. Examination left that was also completed and left mainstem bronchus left upper lobe bronchus lingular segment and left lower lobe bronchus lungs various segments were inspected and there were within normal limits. At this point the bronchoscope was moved to the main trachea and the ET tube was retracted by another centimeter to keep it around 3 cm above the ira. The bronchoscope was removed. The patient will be having a repeat chest x-ray to follow-up on the right upper lobe atelectasis. Gradually wean down the FiO2 to maintain a saturation above 90%. Description of Procedure:
--- NOTE | 2017-02-28 18:22 | XR ---
EXAMINATION TYPE: XR chest 1V portable DATE OF EXAM: 02/28/2017 COMPARISON: Today HISTORY: Follow-up pneumothorax. Post bronchoscopy. TECHNIQUE: Single frontal view of the chest is obtained. FINDINGS: There is a right jugular catheter with the tip in the right pulmonary artery. Endotracheal tube is in good position. Nasogastric tube is in good position. There is a left chest tube. There is a tiny right apical pneumothorax that is significantly smaller than the exam 40 minutes ago. There i s some right upper lobe atelectasis. IMPRESSION: Pneumothorax is decreased compared to recent exam and there is partial clearing of the r ight upper lobe atelectasis.
[2017-02-28] MEDS: ACETAMINOPHEN IV (For NPO) 1,000 MG in EMPTY BAG 1 BAG IVPB SCH ×2 (18:25→23:59)
[2017-02-28] MEDS: PROPOFOL 500 MG in EMPTY BAG 1 BAG IV SCH ×3 (18:36→23:56)
--- NOTE | 2017-02-28 18:56 | P.CONS ---
History of Present Illness - Reason for Consult Consult date: 02/28/17 Medical management, CAD, respiratory failure, hypertension, hyperlipidemia, Requesting physician: German Gonzalez - Chief Complaint 4 vessel CABG, respiratory failure and mechanical ventilation, hypertension - History of Present Illness 62-year-old male one of Dr. Sherman patient with past medical history of hypertension who apparently developed to have slight exertional dyspnea with increased fatigue and symptoms patient had EKG did not show any major abnormality. Patient was result came back significantly abnormal. Patient was for 2 Dr. Frias and ended up having heart catheter in 01/28/2017 result were consistent with 3 vessel disease including distal lesion in the LAD along with the RCA. Patient was referred to cardiothoracic and ended up being scheduled for elective CABG. Surgery was done today successfully patient had 4 vessel CABG SOSA to the LAD saphenous to the RCA saphenous to the diagonal and saphenous to the PDA. Patient developed to have mild hypoxia and significant change in chest x-ray after procedure while he is on mechanical ventilation. Dr. Bazan ended up doing bedside bronchoscopy and found large sputum plug was taking out his lung expanded nicely did well. Patient remain on mechanical ventilation currently his oxygen saturation has been good. No arrhythmia or A. fib was found hemodynamically stable on minimum vasopressor. Patient blood sugar still mildly elevated patient is on minimum dose of insulin drip currently. Review of Systems ROS unobtainable: due to endotracheal tube Past Medical History Past Medical History: Coronary Artery Disease (CAD), Hyperlipidemia, Hypertension, Sleep Apnea/CPAP/BIPAP Additional Past Medical History / Comment(s): Multivessel coronary artery disease, hypertension, sleep apnea not utilizing CPAP therapy, degenerative arthritis History of Any Multi-Drug Resistant Organisms: None Reported Past Surgical History: Heart Catheterization, Orthopedic Surgery, Tonsillectomy Additional Past Surgical History / Comment(s): rt knee scope,colonoscopy. lt rotator cuff repair Past Anesthesia/Blood Transfusion Reactions: No Reported Reaction Smoking Status: Never smoker - Past Family History Mother Family Medical History: No Reported History Medications and Allergies Home Medications Medication Instructions Recorded Confirmed Type Aspirin 325 cap PO ONCE 01/28/17 02/28/17 History Losartan Potassium [Cozaar] 100 mg PO DAILY 01/28/17 02/28/17 History Atorvastatin [Lipitor] 80 mg PO HS 02/28/17 02/28/17 History Allergies Allergy/AdvReac Type Severity Reaction Status Date / Time No Known Allergies Allergy Verified 02/28/17 06:10 Physical Exam Vitals: Vital Signs Temp Pulse Pulse Resp BP BP Pulse Ox 02/28/17 18:20 65 24 99 02/28/17 18:10 66 24 100 02/28/17 18:00 65 24 100 02/28/17 17:50 64 24 100 02/28/17 17:00 69 12 100 02/28/17 16:13 77 02/28/17 16:00 72 12 100 02/28/17 15:54 75 02/28/17 15:45 73 12 100 02/28/17 15:30 73 12 99 02/28/17 06:00 98.3 F 68 16 139/81 125/72 97 Intake and Output 02/28/17 02/28/17 02/28/17 06:59 14:59 22:59 Intake Total 650 Output Total 3400 1305 Balance -3400 -655 Intake: IV 150 Lactated Ringers 1,000 ml 150 @ 50 mls/hr IV .Q20H [facility] Rx#:[id number] Intake, IV Titration 500 Amount Albumin Human 5% 250 ml 500 In Empty Bag 1 bag @ 250 mls/hr IVPB Q1HR PRN Rx#: [id number] Output: Chest Tube Drainage 350 Chest Tube Left Lateral 150 Chest Chest Tube Mediastinal 200 Urine 1900 955 Estimated Blood Loss 1500 Other: Voiding Method Indwelling Catheter ABP, PAP, CO, CI - Last 8 Hours Arterial Blood Pressure 111/57 Arterial Blood Pressure 93/47 Arterial Blood Pressure 100/53 Arterial Blood Pressure 112/60 Arterial Blood Pressure 112/62 Arterial Blood Pressure 143/66 Arterial Blood Pressure 128/66 Arterial Blood Pressure 0/0 Pulmonary Artery Pressure 34/18 Pulmonary Artery Pressure 29/13 Pulmonary Artery Pressure 37/20 Pulmonary Artery Pressure 37/21 Pulmonary Artery Pressure 37/21 Pulmonary Artery Pressure 39/20 Pulmonary Artery Pressure 40/19 Pulmonary Artery Pressure 35/18 Pulmonary Artery Pressure 36/18 Cardiac Output 5 Cardiac Output 5 Cardiac Output 5 Cardiac Output 4.7 Cardiac Output 4.7 Cardiac Output 5.8 Cardiac Output 5.8 Cardiac Output 5.8 Cardiac Output 5.8 Cardiac Index 2.1 Cardiac Index 2.5 - Constitutional He is intubated on mechanical ventilation. General appearance: no average body habitus, no cooperative, no disheveled, no mild distress, no morbidly obese, no acute distress, obese, no severe distress, no thin - EENT Eyes: no abnormal pupil, no anicteric sclerae, no disc margins sharp, no edentulous, no EOMI, no PERRLA, no fundus normal, no photophobia, no dentition normal, no poor dentition, no ptosis, no scleral icterus, normal appearance Ears: bilateral: normal - Neck Neck: no lymphadenopathy, normal ROM, no other, no rigidity, no stridor, no thyromegaly Carotids: bilateral: upstroke normal Thyroid: bilateral: normal size - Respiratory Respiratory: left: diminished, dullness, rales - Cardiovascular Rhythm: regular Heart sounds: normal: S1, S2 - Gastrointestinal General gastrointestinal: distended, normal bowel sounds, soft - Integumentary Integumentary: no calor, no cellulitis, no cyanotic, no decreased turgor, no flushed, no jaundiced, normal, no normal turgor, no pale, no rash, no ulcer - Neurologic On mechanical ventilation - Musculoskeletal Musculoskeletal: strength equal bilaterally - Psychiatric On mechanical ventilation Results CBC & Chem 7: 02/28/17 17:45 02/28/17 15:25 Labs: Abnormal Lab Results - Last 24 Hours (Table) 02/22/17 02/28/17 02/28/17 Range/Units 09:05 09:32 10:53 WBC (3.8-10.6) k/uL RBC (4.30-5.90) m/uL Hgb (13.0-17.5) gm/dL Hct (39.0-53.0) % Plt Count (150-450) k/uL Neutrophils # (1.3-7.7) k/uL Lymphocytes # (1.0-4.8) k/uL ABG pO2 (83-108) mmHg ABG O2 Saturation (94-97) % Chloride (98-107) mmol/L POC Glucose (mg/dL) 115 H 111 H (75-99) mg/dL Calcium (8.4-10.2) mg/dL Magnesium (1.6-2.3) mg/dL Total Protein (6.3-8.2) g/dL Albumin (3.5-5.0) g/dL Crossmatch See Detail 07/02/28/17 02/28/17 Range/Units 11:37 12:03 13:01 WBC (3.8-10.6) k/uL RBC (4.30-5.90) m/uL Hgb (13.0-17.5) gm/dL Hct (39.0-53.0) % Plt Count (150-450) k/uL Neutrophils # (1.3-7.7) k/uL Lymphocytes # (1.0-4.8) k/uL ABG pO2 (83-108) mmHg ABG O2 Saturation (94-97) % Chloride (98-107) mmol/L POC Glucose (mg/dL) 189 H 187 H 159 H (75-99) mg/dL Calcium (8.4-10.2) mg/dL Magnesium (1.6-2.3) mg/dL Total Protein (6.3-8.2) g/dL Albumin (3.5-5.0) g/dL Crossmatch 02/28/17 02/28/17 02/28/17 Range/Units 14:01 15:25 15:25 WBC (3.8-10.6) k/uL RBC 3.83 L (4.30-5.90) m/uL Hgb 12.0 L D (13.0-17.5) gm/dL Hct 34.4 L (39.0-53.0) % Plt Count 131 L D (150-450) k/uL Neutrophils # (1.3-7.7) k/uL Lymphocytes # 0.8 L (1.0-4.8) k/uL ABG pO2 (83-108) mmHg ABG O2 Saturation (94-97) % Chloride 108 H (98-107) mmol/L POC Glucose (mg/dL) 128 H (75-99) mg/dL Calcium 7.8 L (8.4-10.2) mg/dL Magnesium 2.5 H (1.6-2.3) mg/dL Total Protein 4.8 L (6.3-8.2) g/dL Albumin 3.0 L (3.5-5.0) g/dL Crossmatch 02/28/17 02/28/17 02/28/17 Range/Units 15:40 17:02 17:45 WBC 13.6 H (3.8-10.6) k/uL RBC 3.89 L (4.30-5.90) m/uL Hgb 11.9 L (13.0-17.5) gm/dL Hct 35.4 L (39.0-53.0) % Plt Count (150-450) k/uL Neutrophils # 12.0 H (1.3-7.7) k/uL Lymphocytes # 0.8 L (1.0-4.8) k/uL ABG pO2 228 H (83-108) mmHg ABG O2 Saturation 100.0 H (94-97) % Chloride (98-107) mmol/L POC Glucose (mg/dL) 115 H (75-99) mg/dL Calcium (8.4-10.2) mg/dL Magnesium (1.6-2.3) mg/dL Total Protein (6.3-8.2) g/dL Albumin (3.5-5.0) g/dL Crossmatch 02/28/17 Range/Units 18:02 WBC (3.8-10.6) k/uL RBC (4.30-5.90) m/uL Hgb (13.0-17.5) gm/dL Hct (39.0-53.0) % Plt Count (150-450) k/uL Neutrophils # (1.3-7.7) k/uL Lymphocytes # (1.0-4.8) k/uL ABG pO2 (83-108) mmHg ABG O2 Saturation (94-97) % Chloride (98-107) mmol/L POC Glucose (mg/dL) 123 H (75-99) mg/dL Calcium (8.4-10.2) mg/dL Magnesium (1.6-2.3) mg/dL Total Protein (6.3-8.2) g/dL Albumin (3.5-5.0) g/dL Crossmatch Assessment and Plan Plan: 1 CAD with multiple vessel disease: Patient had CABG stable so far and doing well. 2 post CABG: Patient had 4 vessel stable in the ICU. 3 respiratory failure: Patient still on mechanical ventilation had sputum black in the upper lobe post bronchoscopy done well. 4 hyperglycemia: Continue patient on insulin drip and try to keep his blood sugar below 120. 5 hypertension: Patient was on losartan as an outpatient is currently on hydralazine and beta fabricio will adjust his medication after his ET tube is out. 6 GI prophylaxis: Patient will continue on metoprolol IV. 7 DVT prophylaxis continue Lovenox. CODE STATUS: Full code. Dr. Gonzalez thank you very much for the consult if I can be any further help to please let me know.
[2017-02-28 19:12] LABS: Glucose,Whole Blood 137 mg/dL (75-99)
[2017-02-28] MEDS: CLEVIDIPINE BUTYRATE 25 MG in EMPTY BAG 1 BAG IV SCH (19:34)
[2017-02-28 20:10] LABS: Glucose,Whole Blood 133 mg/dL (75-99)
[2017-02-28 20:58] LABS: Glucose,Whole Blood 133 mg/dL (75-99)
[2017-02-28 21:14] LABS: INR 1.1 (<1.2); Prothrombin Time 10.7 sec (9.0-12.0)
[2017-02-28 21:24] LABS: Ionized Calcium 4.6 mg/dL (4.5-5.3)
[2017-02-28 21:35] LABS: Anion Gap 7 mmol/L; Blood Urea Nitrogen 11 mg/dL (9-20); Calcium 7.9 mg/dL (8.4-10.2); Carbon Dioxide 25 mmol/L (22-30); Chloride 107 mmol/L (98-107); Glucose 124 mg/dL (74-99); Non-African American GFR(MDRD) >60 (>60 ml/min/1.73 sqM); Potassium 4.2 mmol/L (3.5-5.1); Sodium 139 mmol/L (137-145)
[2017-02-28 22:20] LABS: Glucose,Whole Blood 128 mg/dL (75-99)
[2017-02-28 22:48] LABS: Magnesium 2.3 mg/dL (1.6-2.3); Phosphorous 2.4 mg/dL (2.5-4.5)
[2017-02-28 23:27] LABS: Basophils % (A) 0 %; CH 31.2; CHCM 34.4; Eosinophils # (A) 0.1 k/uL (0-0.7); Eosinophils % (A) 1 %; HDW 2.84; HGB 11.8 gm/dL (13.0-17.5); Luc # (Auto) 0.06; Luc % (Auto) 0; Lymphocytes # (A) 0.6 k/uL (1.0-4.8); Lymphocytes % (A) 4 %; MCH 30.6 pg (25.0-35.0); MCHC 33.6 g/dL (31.0-37.0); MCV 91.1 fL (80.0-100.0); Mean Platelet Volume 8.8; Monocytes # (A) 0.7 k/uL (0-1.0); Monocytes % (A) 5 %; Neutrophils # (A) 13.2 k/uL (1.3-7.7); Neutrophils % (A) 90 %; RBC 3.85 m/uL (4.30-5.90); RDW 13.2 % (11.5-15.5); WBC 14.7 k/uL (3.8-10.6); WBC (Perox) 13.95
[2017-02-28 23:30] LABS: Glucose,Whole Blood 138 mg/dL (75-99)
[2017-02-28] MEDS: HEPARIN SODIUM,PORCINE 5,000 UNIT/ML 1 ML VIAL SQ SCH (23:44)
[2017-03-01 00:08] LABS: Glucose,Whole Blood 141 mg/dL (75-99)
[2017-03-01 00:44] LABS: ABG Base Excess 0.3 mmol/L; ABG HCO3 24 mmol/L (21-25); ABG PCO2 36 mmHg (35-45); ABG PH 7.44 (7.35-7.45); ABG PO2 126 mmHg (83-108); ABG TCO2 25 mmol/L (19-24)
[2017-03-01 01:22] LABS: Glucose,Whole Blood 140 mg/dL (75-99)
[2017-03-01 02:08] LABS: Glucose,Whole Blood 149 mg/dL (75-99)
[2017-03-01 03:26] LABS: Glucose,Whole Blood 137 mg/dL (75-99)
[2017-03-01 04:29] LABS: Glucose,Whole Blood 136 mg/dL (75-99)
[2017-03-01 04:51] LABS: Basophils % (A) 0 %; CH 31.1; CHCM 34.5; Eosinophils % (A) 0 %; HCT 33.9 % (39.0-53.0); HDW 2.85; HGB 11.6 gm/dL (13.0-17.5); Luc # (Auto) 0.06; Luc % (Auto) 1; Lymphocytes # (A) 0.5 k/uL (1.0-4.8); Lymphocytes % (A) 5 %; MCHC 34.3 g/dL (31.0-37.0); MCV 90.6 fL (80.0-100.0); Mean Platelet Volume 8.5; Monocytes # (A) 0.6 k/uL (0-1.0); Monocytes % (A) 6 %; Neutrophils # (A) 8.7 k/uL (1.3-7.7); Neutrophils % (A) 88 %; RBC 3.74 m/uL (4.30-5.90); RDW 13.3 % (11.5-15.5); WBC 9.9 k/uL (3.8-10.6); WBC (Perox) 10.32
[2017-03-01] MEDS: ONDANSETRON 4 MG/2 ML VIAL IVP PRN ×2 (04:53→12:04)
[2017-03-01 05:28] LABS: Ionized Calcium 4.5 mg/dL (4.5-5.3)
[2017-03-01 05:37] LABS: ALT 41 U/L (21-72); AST 47 U/L (17-59); Alkaline Phosphatase 61 U/L (38-126); Anion Gap 9 mmol/L; Blood Urea Nitrogen 11 mg/dL (9-20); Carbon Dioxide 26 mmol/L (22-30); Chloride 105 mmol/L (98-107); Glucose 131 mg/dL (74-99); Magnesium 2.3 mg/dL (1.6-2.3); Non-African American GFR(MDRD) >60 (>60 ml/min/1.73 sqM); Potassium 4.3 mmol/L (3.5-5.1); Sodium 140 mmol/L (137-145); Total Bilirubin 0.8 mg/dL (0.2-1.3); Total Protein 5.1 g/dL (6.3-8.2)
[2017-03-01 06:14] LABS: Glucose,Whole Blood 132 mg/dL (75-99)
[2017-03-01] MEDS: ACETAMINOPHEN IV (For NPO) 1,000 MG in EMPTY BAG 1 BAG IVPB SCH ×3 (06:14→18:59)
[2017-03-01] MEDS: DILTIAZEM 125 MG in SODIUM CHLORIDE 0.9% 100 ML IV SCH (06:33)
--- NOTE | 2017-03-01 07:25 | XR ---
EXAMINATION TYPE: XR chest 1V portable DATE OF EXAM: 03/01/2017 HISTORY: Post Operative Cardiac Surgery. REFERENCE: Previous study dated 02/28/2017. FINDINGS: There has been a midline sternotomy. The patient is ET tube and NG tube been removed. [place]- Cornel catheter is in place via a right internal jugular approach. Its tip is in the right main pulmona ry artery. There is a left pleural drain in place. There is atelectatic change in the right midlung. There is left basilar airspace disease which has in creased slightly from previous. The heart is mildly enlarged. No definite pleural fluid is seen. No d efinite pneumothorax is identified. IMPRESSION: CONTINUING POSTOPERATIVE CHANGE.
[2017-03-01 08:06] LABS: Glucose,Whole Blood 131 mg/dL (75-99)
--- NOTE | 2017-03-01 08:06 | OP ---
DATE OF SERVICE: 02/28/2017 ATTENDING SURGEON: KAUSHIK ALEJO MD STATISTICIAN MATHEMATICAL: ( ), AZAM REARDON NP PREOPERATIVE DIAGNOSIS: Anginal equivalent 3 vessel coronary arterial disease. POSTOPERATIVE DIAGNOSIS: Anginal equivalent 3 vessel coronary arterial disease. PROCEDURE: Coronary artery bypass grafting x4 with left internal mammary, left anterior descending artery, reverse saphenous vein graft off the aorta to the diagonal artery, the posterior descending artery and the posterior ventricular branch of the right coronary artery with endoscopic vein harvesting and intraoperative LUIS E. ANESTHESIA: General.BLOOD LOSS: 500 mL. SUMMARY: Patient was taken to the operating room and placed in supine position. From a ( ) general anesthetic, placement of a [place] Cornel catheter and arterial line, IV access and a Mao catheter, patient was prepped and draped in a sterile fashion using Betadine paint and sterile towels. Saphenous vein was harvested from the lower extremity with endovascular vein harvesting technique. Whole branches were doubly tied and divided, incisions closed in 2 layers. Midline incision in the chest made, the sternum divided, pericardium was opened. The heart size was of normal caliber, the aorta was soft. Left ( ) and upper left internal mammary artery harvested at the pedicle from the xiphoid to the left subclavian vein. It was of 2 mm quality with excellent flow. Patient was heparinized with ( ) aorta. The vena cava were cannulated, antegrade and retrograde cardioplegia catheter is positioned in the ascending aorta and the coronary sinus. Patient was placed on bypass, crossclamp placed, heart arrested with 100 of antegrade by 500 mL retrograde cardioplegia. Retrograde cardioplegia was delivered through the 500 mL and the end of each 20 minute intervals. Distal anastomosis was constructed in reverse saphenous vein grafts anastomosis to the posterior descending artery constructed using a 7-0 Prolene running suture, ( ) vessel was 1.75 mm. Next, saphenous vein anastomosis of the posterior ventricular branch of the right coronary artery constructed in a similar fashion. This was a 1.75 mm vessel. Next, saphenous vein anastomosis to the large first diagonal artery was constructed in a similar fashion. This is a 1.5 x 12.75 mm vessel. Last, the left internal mammary artery was beveled and distal left anterior descending artery in its mid to distal portion are cutting across a stenotic lesion and opening it up, was constructed using an 8.0 Prolene running suture, cavernous reverse vessel was 1.75 mm. Under a single crossclamp, three proximal anastomosis were reconstructed in the ascending aorta using 6.0 Prolene running suture. The patient was placed head down, the aortic root was vented, formal retrograde cardioplegia was run, crossclamp was removed, the vein grafts deaired, ( ) beating normal sinus rhythm, patient was brought off bypass. Came off bypass uneventfully with good hemodynamics, protamine delivered, patient decannulated. Atrial ventricular pacing wires were placed. Mediastinal left pleural chest tubes are placed at this point. Sternum was closed with 7 #6 sternal wires. Skin was ( ), tissue and fascia are closed in 3 layers. The patient tolerated the procedure well, was taken to the cardiovascular intensive care unit in stable condition. LUIS E showed excellent ventricular function, postoperatively. GER
[2017-03-01] MEDS: IPRATROPIUM-ALBUTEROL 3 ML NEB INHALATION SCH ×4 (08:28→19:40)
[2017-03-01] MEDS: HEPARIN SODIUM,PORCINE 5,000 UNIT/ML 1 ML VIAL SQ SCH ×2 (08:29→15:11)
[2017-03-01] MEDS: ceFAZolin 2 GM in SODIUM CHLORIDE 0.9% 100 ML IVPB SCH ×2 (08:29→15:11)
[2017-03-01] MEDS: PANTOPRAZOLE 40 MG TABLET PO SCH (08:29)
[2017-03-01] MEDS: ATORVASTATIN 40 MG TAB PO SCH (08:30)
[2017-03-01] MEDS: ASPIRIN 325 MG TAB PO SCH (08:30)
[2017-03-01 08:35] LABS: Glucose,Whole Blood 124 mg/dL (75-99)
[2017-03-01] MEDS ORDERED: METOPROLOL TARTRATE 12.5 MG TAB PO SCH (09:00)
[2017-03-01] MEDS ORDERED: ESOMEPRAZOLE 20 MG in SODIUM CHLORIDE 0.9% 50 ML IVPB SCH (09:00)
[2017-03-01 11:45] LABS: Prothrombin Time 10.3 sec (9.0-12.0)
[2017-03-01] MEDS: CLOPIDOGREL 75 MG TAB PO SCH (11:56)
[2017-03-01 12:05] LABS: Glucose,Whole Blood 137 mg/dL (75-99)
[2017-03-01] MEDS: INSULIN LISPRO (humaLOG) 300 UNIT/3 ML VIAL SQ SCH ×3 (12:30→19:50)
--- NOTE | 2017-03-01 12:48 | P.PN ---
Subjective 62-year-old male patient with multivessel coronary artery disease and an abnormal stress test was having chest pain and further cardiac catheterization showing multivessel coronary artery disease. Patient has a preserved LV function. The patient was taken to the operating room today and he underwent and he had four-vessel bypass surgery including SOSA to LAD. The surgery went fine and following that the patient was brought into the intensive care unit intubated on a mechanical ventilator. At this point in time the patient is on SIMV mode with a rate of 14, tidal volume of 600, FiO2 has been weaned down to 60% with a PEEP of 8. Immediate postoperative chest x-ray showed questionable loculated right upper lobe pneumothorax versus atelectasis of the right upper lobe. Chest x-ray was repeated and after bagging and recruiting maneuvers the abnormality remains unchanged. Based on that, a bedside bronchoscopy was done and limited mucous plug was seen to obstructive the orifice of the right upper lobe. Therapeutic airway suctioning was done. Subsequent chest x-ray showed improvement in the volume status. At this point in time, the patient is on 100 % FiO2 with a PEEP of 8. Hemodynamically his cardiac index of 2.2, pulmonary artery pressure of 46/23, he is on 2 mics of levo fed, 65 mics of the prevent, insulin drip for blood sugar control, Cardizem and nitroglycerin drip were placed on hold as the patient's blood pressure dropped and he is currently on few mics of levo fed as mentioned. Urine output is adequate. The patient is a mediastinal chest tube that showed no evidence of air leak. The patient also has a left pleural chest tube without evidence of air leak and the total amount of output from the pleural chest tube is approximately 350 since he arrived from the operating room. Apparently the output was high initially and improved as arrived to the ICU. On 03/01/2017 the patient is doing extremely well. As mentioned earlier postop the patient developed a right upper lobe atelectasis due to mucous plug that was suctioned out and therapeutic it was suctioning was done in the right upper lobe reexpanded. Following that the patient was gradually weaned off the mechanical ventilator overnight and the patient was extubated at around 1 AM this morning. The patient is doing extremely well. He is on 2 L of oxygen nasal cannula. He is pulling approximately thousand on the incentive spirometer. The left-sided pleural chest tube is draining around 180s since morning and a mediastinal tube has drained around 350. On his chest x-ray there is no evidence of pneumothorax and there is no evidence of any atelectasis. The Brule-Cornel catheter has been removed. Insulin drip has been stopped and the patient is on sliding scale insulin for blood sugar control. The patient is on no pressors. The patient is maintaining his own blood pressure. Urine output is adequate or than 30 mL an hour. He is awake and alert and communicating. No significant pain. Objective - Vital Signs Vital signs: Vital Signs Temp 97.7 F 03/01/17 11:00 Pulse 79 03/01/17 12:18 Resp 21 03/01/17 11:00 BP 148/74 03/01/17 11:00 Pulse Ox 99 03/01/17 11:00 Intake & Output 02/28/17 03/01/17 03/01/17 18:59 06:59 18:59 Intake Total 810.550 8754.507 478 Output Total 4705 1203 449 Balance -4051.375 32.507 29 Weight 109.5 kg Intake: IV 150 740 428 .0 pressure bag 40 18 ACETAMINOPHEN IV (For NPO 100 100 ) 1,000 mg In Empty Bag 1 bag @ 400 mls/hr IVPB Q6HR [facility] Rx#:[id number] Lactated Ringers 1,000 ml 150 600 210 @ 20 mls/hr IV .Q24H [facility] Rx#:[id number] ceFAZolin 2 gm In Sodium 100 Chloride 0.9% 100 ml @ 100 mls/hr IVPB Q8HR [facility] Rx#:[id number] Intake, IV Titration 503.625 315.507 Amount Albumin Human 5% 250 ml 500 In Empty Bag 1 bag @ 250 mls/hr IVPB Q1HR PRN Rx#: [id number] Diltiazem 125 mg In 76.500 Sodium Chloride 0.9% 100 ml @ 10 MG/HR 10 mls/hr IV .[id number] [facility] Rx#: [id number] Insulin Regular 100 unit 21.456 In Sodium Chloride 0.9% 100 ml @ Per Protocol IV .Q0M [facility] Rx#:[id number] Nitroglycerin-D5w Pmx 50 3.625 mg In Dextrose/Water 1 250ml.bag @ 10 MCG/MIN 3 mls/hr IV .Q24H [facility] Rx#: [id number] Norepinephrin 4 mg-0.9% 117.125 Ns Pmx 4 mg In 250 ml @ Titrate IV .Q0M [facility] Rx#: [id number] Propofol 500 mg In Empty 100.426 Bag 1 bag @ Titrate IV . Q0M [facility] Rx#:[id number] Oral 180 50 Output: Chest Tube Drainage 350 293 174 Chest Tube Left Lateral 150 87 54 Chest Chest Tube Mediastinal 200 206 120 Urine 2855 910 275 Estimated Blood Loss 1500 Other: Voiding Method Indwelling Catheter Indwelling Catheter Indwelling Catheter # Bowel Movements 0 ABP, PAP, CO, CI - Last Documented Arterial Blood Pressure 111/54 Pulmonary Artery Pressure 48/21 Cardiac Output 4.8 Cardiac Index 2.7 - Exam Head exam was generally normal. There was no scleral icterus or corneal arcus. Mucous membranes were moist.the patient has a right IJ Cordis in place.Neck was supple and without jugular venous distension, thyromegaly, or carotid bruits. Carotids were easily palpable bilaterally. There was no adenopathy. Lung sounds are diminished bilaterally otherwise clear. Sternal stable clean and intact. The baseline in the pleural chest tubes are all in place.Cardiac exam revealed the PMI to be normally situated and sized. The rhythm was regular and no extrasystoles were noted during several minutes of auscultation. The first and second heart sounds were normal and physiologic splitting of the second heart sound was noted. There were no murmurs, rubs, clicks, or gallops.Abdominal exam revealed normal bowel sounds. The abdomen was soft, non- tender, and without masses, organomegaly, or appreciable enlargement of the abdominal aorta. MExamination of the extremities revealed easily palpable radial, femoral and pedal pulses. There was no cyanosis, clubbing or edema. - Labs CBC & Chem 7: 03/01/17 04:30 03/01/17 04:30 Labs: Abnormal Lab Results - Last 24 Hours (Table) 02/22/17 02/28/17 02/28/17 Range/Units 09:05 13:01 14:01 WBC (3.8-10.6) k/uL RBC (4.30-5.90) m/uL Hgb (13.0-17.5) gm/dL Hct (39.0-53.0) % Plt Count (150-450) k/uL Neutrophils # (1.3-7.7) k/uL Lymphocytes # (1.0-4.8) k/uL ABG pO2 (83-108) mmHg ABG Total CO2 (19-24) mmol/L ABG O2 Saturation (94-97) % Chloride (98-107) mmol/L Glucose (74-99) mg/dL POC Glucose (mg/dL) 159 H 128 H (75-99) mg/dL Calcium (8.4-10.2) mg/dL Phosphorus (2.5-4.5) mg/dL Magnesium (1.6-2.3) mg/dL Total Protein (6.3-8.2) g/dL Albumin (3.5-5.0) g/dL Crossmatch See Detail 02/28/17 02/28/17 02/28/17 Range/Units 15:25 15:25 15:40 WBC (3.8-10.6) k/uL RBC 3.83 L (4.30-5.90) m/uL Hgb 12.0 L D (13.0-17.5) gm/dL Hct 34.4 L (39.0-53.0) % Plt Count 131 L D (150-450) k/uL Neutrophils # (1.3-7.7) k/uL Lymphocytes # 0.8 L (1.0-4.8) k/uL ABG pO2 228 H (83-108) mmHg ABG Total CO2 (19-24) mmol/L ABG O2 Saturation 100.0 H (94-97) % Chloride 108 H (98-107) mmol/L Glucose (74-99) mg/dL POC Glucose (mg/dL) (75-99) mg/dL Calcium 7.8 L (8.4-10.2) mg/dL Phosphorus (2.5-4.5) mg/dL Magnesium 2.5 H (1.6-2.3) mg/dL Total Protein 4.8 L (6.3-8.2) g/dL Albumin 3.0 L (3.5-5.0) g/dL Crossmatch 02/28/17 02/28/17 02/28/17 Range/Units 17:02 17:45 18:02 WBC 13.6 H (3.8-10.6) k/uL RBC 3.89 L (4.30-5.90) m/uL Hgb 11.9 L (13.0-17.5) gm/dL Hct 35.4 L (39.0-53.0) % Plt Count (150-450) k/uL Neutrophils # 12.0 H (1.3-7.7) k/uL Lymphocytes # 0.8 L (1.0-4.8) k/uL ABG pO2 (83-108) mmHg ABG Total CO2 (19-24) mmol/L ABG O2 Saturation (94-97) % Chloride (98-107) mmol/L Glucose (74-99) mg/dL POC Glucose (mg/dL) 115 H 123 H (75-99) mg/dL Calcium (8.4-10.2) mg/dL Phosphorus (2.5-4.5) mg/dL Magnesium (1.6-2.3) mg/dL Total Protein (6.3-8.2) g/dL Albumin (3.5-5.0) g/dL Crossmatch 02/28/17 02/28/17 02/28/17 Range/Units 19:10 20:07 20:56 WBC (3.8-10.6) k/uL RBC (4.30-5.90) m/uL Hgb (13.0-17.5) gm/dL Hct (39.0-53.0) % Plt Count (150-450) k/uL Neutrophils # (1.3-7.7) k/uL Lymphocytes # (1.0-4.8) k/uL ABG pO2 (83-108) mmHg ABG Total CO2 (19-24) mmol/L ABG O2 Saturation (94-97) % Chloride (98-107) mmol/L Glucose (74-99) mg/dL POC Glucose (mg/dL) 137 H 133 H 133 H (75-99) mg/dL Calcium (8.4-10.2) mg/dL Phosphorus (2.5-4.5) mg/dL Magnesium (1.6-2.3) mg/dL Total Protein (6.3-8.2) g/dL Albumin (3.5-5.0) g/dL Crossmatch 0702/28/17 02/28/17 Range/Units 21:00 21:00 21:15 WBC 14.7 H (3.8-10.6) k/uL RBC 3.85 L (4.30-5.90) m/uL Hgb 11.8 L (13.0-17.5) gm/dL Hct 35.0 L (39.0-53.0) % Plt Count (150-450) k/uL Neutrophils # 13.2 H (1.3-7.7) k/uL Lymphocytes # 0.6 L (1.0-4.8) k/uL ABG pO2 (83-108) mmHg ABG Total CO2 (19-24) mmol/L ABG O2 Saturation (94-97) % Chloride (98-107) mmol/L Glucose 124 H (74-99) mg/dL POC Glucose (mg/dL) (75-99) mg/dL Calcium 7.9 L (8.4-10.2) mg/dL Phosphorus 2.4 L (2.5-4.5) mg/dL Magnesium (1.6-2.3) mg/dL Total Protein (6.3-8.2) g/dL Albumin (3.5-5.0) g/dL Crossmatch 02/28/17 02/28/17 03/01/17 Range/Units 22:18 23:28 00:06 WBC (3.8-10.6) k/uL RBC (4.30-5.90) m/uL Hgb (13.0-17.5) gm/dL Hct (39.0-53.0) % Plt Count (150-450) k/uL Neutrophils # (1.3-7.7) k/uL Lymphocytes # (1.0-4.8) k/uL ABG pO2 (83-108) mmHg ABG Total CO2 (19-24) mmol/L ABG O2 Saturation (94-97) % Chloride (98-107) mmol/L Glucose (74-99) mg/dL POC Glucose (mg/dL) 128 H 138 H 141 H (75-99) mg/dL Calcium (8.4-10.2) mg/dL Phosphorus (2.5-4.5) mg/dL Magnesium (1.6-2.3) mg/dL Total Protein (6.3-8.2) g/dL Albumin (3.5-5.0) g/dL Crossmatch 03/01/17 03/01/17 03/01/17 Range/Units 00:31 01:18 02:07 WBC (3.8-10.6) k/uL RBC (4.30-5.90) m/uL Hgb (13.0-17.5) gm/dL Hct (39.0-53.0) % Plt Count (150-450) k/uL Neutrophils # (1.3-7.7) k/uL Lymphocytes # (1.0-4.8) k/uL ABG pO2 126 H (83-108) mmHg ABG Total CO2 25 H (19-24) mmol/L ABG O2 Saturation 99.0 H (94-97) % Chloride (98-107) mmol/L Glucose (74-99) mg/dL POC Glucose (mg/dL) 140 H 149 H (75-99) mg/dL Calcium (8.4-10.2) mg/dL Phosphorus (2.5-4.5) mg/dL Magnesium (1.6-2.3) mg/dL Total Protein (6.3-8.2) g/dL Albumin (3.5-5.0) g/dL Crossmatch 03/01/17 03/01/17 03/01/17 Range/Units 03:23 04:27 04:30 WBC (3.8-10.6) k/uL RBC 3.74 L (4.30-5.90) m/uL Hgb 11.6 L (13.0-17.5) gm/dL Hct 33.9 L (39.0-53.0) % Plt Count (150-450) k/uL Neutrophils # 8.7 H (1.3-7.7) k/uL Lymphocytes # 0.5 L (1.0-4.8) k/uL ABG pO2 (83-108) mmHg ABG Total CO2 (19-24) mmol/L ABG O2 Saturation (94-97) % Chloride (98-107) mmol/L Glucose (74-99) mg/dL POC Glucose (mg/dL) 137 H 136 H (75-99) mg/dL Calcium (8.4-10.2) mg/dL Phosphorus (2.5-4.5) mg/dL Magnesium (1.6-2.3) mg/dL Total Protein (6.3-8.2) g/dL Albumin (3.5-5.0) g/dL Crossmatch 03/01/17 03/01/17 03/01/17 Range/Units 04:30 06:13 08:04 WBC (3.8-10.6) k/uL RBC (4.30-5.90) m/uL Hgb (13.0-17.5) gm/dL Hct (39.0-53.0) % Plt Count (150-450) k/uL Neutrophils # (1.3-7.7) k/uL Lymphocytes # (1.0-4.8) k/uL ABG pO2 (83-108) mmHg ABG Total CO2 (19-24) mmol/L ABG O2 Saturation (94-97) % Chloride (98-107) mmol/L Glucose 131 H (74-99) mg/dL POC Glucose (mg/dL) 132 H 131 H (75-99) mg/dL Calcium 8.0 L (8.4-10.2) mg/dL Phosphorus (2.5-4.5) mg/dL Magnesium (1.6-2.3) mg/dL Total Protein 5.1 L (6.3-8.2) g/dL Albumin 3.4 L (3.5-5.0) g/dL Crossmatch 03/01/17 03/01/17 Range/Units 08:32 12:02 WBC (3.8-10.6) k/uL RBC (4.30-5.90) m/uL Hgb (13.0-17.5) gm/dL Hct (39.0-53.0) % Plt Count (150-450) k/uL Neutrophils # (1.3-7.7) k/uL Lymphocytes # (1.0-4.8) k/uL ABG pO2 (83-108) mmHg ABG Total CO2 (19-24) mmol/L ABG O2 Saturation (94-97) % Chloride (98-107) mmol/L Glucose (74-99) mg/dL POC Glucose (mg/dL) 124 H 137 H (75-99) mg/dL Calcium (8.4-10.2) mg/dL Phosphorus (2.5-4.5) mg/dL Magnesium (1.6-2.3) mg/dL Total Protein (6.3-8.2) g/dL Albumin (3.5-5.0) g/dL Crossmatch Assessment and Plan Plan: Assessment 1 multivessel coronary artery disease, status post four-vessel bypass surgery including SOSA to LAD. Patient is postop day #1 2 post thoracotomy, currently extubated on few liters of oxygen nasal cannula 3 right upper lobe atelectasis status post bronchoscopy and therapeutic airway suctioning of a tiny mucous plug with expression of the right upper lobe 4 postop to hypotension , brief, an expected outcome of cardiac surgery, recovered and the patient is currently on no pressors. 5 obstructive sleep apnea, history of 6 hyperlipidemia, history of 7 hypertension, history of Plan Patient is doing extremely well. The Brule-Cornel catheter is been removed. Continue using incentive spirometer. Repeat chest x-ray in the morning. Keep the chest tubes in place. Sit him up on a chair. Repeat chest x-ray in the morning. Monitor the output from the chest tubes. We'll continue to follow.
[2017-03-01] MEDS ORDERED: METOPROLOL TARTRATE 12.5 MG TAB PO STA (12:52)
--- NOTE | 2017-03-01 13:03 | P.PN ---
Subjective Principal diagnosis: Anginal equivalent triple-vessel coronary artery disease. Hypertension. POD #1 coronary artery bypass grafting 4 with left internal mammary artery to the left anterior descending artery, reverse saphenous vein graft off the aorta to the diagonal artery, the posterior descending artery and the posterior ventricular branch of the right coronary artery with endoscopic vein harvesting and intraoperative LUIS E. Postoperative right upper lobe atelectasis, and expected outcome of surgery. POD #1 bronchoscopy with removal of a mucous plug. Patient's currently sitting up in a recliner in no acute distress. States pain is well-controlled. He was extubated this morning and 00:55 AM Objective - Vital Signs Vital signs: Vital Signs Temp 97.7 F 03/01/17 11:00 Pulse 79 03/01/17 12:18 Resp 21 03/01/17 11:00 BP 148/74 03/01/17 11:00 Pulse Ox 99 03/01/17 11:00 Intake & Output 17/17 1803/01/17 18:59 06:59 18:59 Intake Total 475.334 4536.507 478 Output Total 4705 1203 449 Balance -4051.375 32.507 29 Weight 109.5 kg Intake: IV 150 740 428 .0 pressure bag 40 18 ACETAMINOPHEN IV (For NPO 100 100 ) 1,000 mg In Empty Bag 1 bag @ 400 mls/hr IVPB Q6HR [facility] Rx#:[id number] Lactated Ringers 1,000 ml 150 600 210 @ 20 mls/hr IV .Q24H [facility] Rx#:[id number] ceFAZolin 2 gm In Sodium 100 Chloride 0.9% 100 ml @ 100 mls/hr IVPB Q8HR [facility] Rx#:[id number] Intake, IV Titration 503.625 315.507 Amount Albumin Human 5% 250 ml 500 In Empty Bag 1 bag @ 250 mls/hr IVPB Q1HR PRN Rx#: [id number] Diltiazem 125 mg In 76.500 Sodium Chloride 0.9% 100 ml @ 10 MG/HR 10 mls/hr IV .[id number] [facility] Rx#: [id number] Insulin Regular 100 unit 21.456 In Sodium Chloride 0.9% 100 ml @ Per Protocol IV .Q0M [facility] Rx#:[id number] Nitroglycerin-D5w Pmx 50 3.625 mg In Dextrose/Water 1 250ml.bag @ 10 MCG/MIN 3 mls/hr IV .Q24H [facility] Rx#: [id number] Norepinephrin 4 mg-0.9% 117.125 Ns Pmx 4 mg In 250 ml @ Titrate IV .Q0M [facility] Rx#: [id number] Propofol 500 mg In Empty 100.426 Bag 1 bag @ Titrate IV . Q0M [facility] Rx#:[id number] Oral 180 50 Output: Chest Tube Drainage 350 293 174 Chest Tube Left Lateral 150 87 54 Chest Chest Tube Mediastinal 200 206 120 Urine 2855 910 275 Estimated Blood Loss 1500 Other: Voiding Method Indwelling Catheter Indwelling Catheter Indwelling Catheter # Bowel Movements 0 ABP, PAP, CO, CI - Last Documented Arterial Blood Pressure 111/54 Pulmonary Artery Pressure 48/21 Cardiac Output 4.8 Cardiac Index 2.7 - Constitutional General appearance: Present: cooperative, no acute distress - Respiratory Details: Lungs sounds diminished bilaterally. Respirations even, nonlabored. Currently on 3 L nasal cannula oxygen saturation 97%. Able to achieve 1250 mL on his incentive spirometry. Left pleural chest tube to -20 cm wall suction, 60 mL drainage overnight, 190 mL since surgery. Mediastinal chest tube to -20 cm wall suction, 130 mL drainage overnight, 400 mL since surgery. No air leaks present. - Cardiovascular Details: S1, S2 present. Regular rate and rhythm, normal sinus rhythm on telemetry. Sternum stable. Heart hugger in place with patient demonstrating appropriate use. Ventricular pacemaker wire present, connected to generator, VVI with backup rate 50 bpm. Right femoral arterial line discontinued this morning. Teds and SCDs present. - Gastrointestinal Gastrointestinal Comment(s): Abdomen soft, nontender, nondistended. Active bowel sounds 4 quadrants. Tolerating diet. Patient has had some nausea with minute amount of emesis. - Genitourinary Genitourinary Comment(s): Mao present draining clear, yellow urine. Approximately 30-100 mL/h. - Integumentary Integumentary Comment(s): Anterior chest incision well approximated and covered with dry intact dressing. - Musculoskeletal Musculoskeletal: Present: gait normal, strength equal bilaterally - Psychiatric Psychiatric: Present: A&O x's 3, appropriate affect, intact judgment & insight - Allied health notes Allied health notes reviewed: nursing - Labs CBC & Chem 7: 03/01/17 04:30 03/01/17 04:30 Labs: Abnormal Lab Results - Last 24 Hours (Table) 02/22/17 02/28/17 02/28/17 Range/Units 09:05 13:01 14:01 WBC (3.8-10.6) k/uL RBC (4.30-5.90) m/uL Hgb (13.0-17.5) gm/dL Hct (39.0-53.0) % Plt Count (150-450) k/uL Neutrophils # (1.3-7.7) k/uL Lymphocytes # (1.0-4.8) k/uL ABG pO2 (83-108) mmHg ABG Total CO2 (19-24) mmol/L ABG O2 Saturation (94-97) % Chloride (98-107) mmol/L Glucose (74-99) mg/dL POC Glucose (mg/dL) 159 H 128 H (75-99) mg/dL Calcium (8.4-10.2) mg/dL Phosphorus (2.5-4.5) mg/dL Magnesium (1.6-2.3) mg/dL Total Protein (6.3-8.2) g/dL Albumin (3.5-5.0) g/dL Crossmatch See Detail 02/28/17 02/28/17 02/28/17 Range/Units 15:25 15:25 15:40 WBC (3.8-10.6) k/uL RBC 3.83 L (4.30-5.90) m/uL Hgb 12.0 L D (13.0-17.5) gm/dL Hct 34.4 L (39.0-53.0) % Plt Count 131 L D (150-450) k/uL Neutrophils # (1.3-7.7) k/uL Lymphocytes # 0.8 L (1.0-4.8) k/uL ABG pO2 228 H (83-108) mmHg ABG Total CO2 (19-24) mmol/L ABG O2 Saturation 100.0 H (94-97) % Chloride 108 H (98-107) mmol/L Glucose (74-99) mg/dL POC Glucose (mg/dL) (75-99) mg/dL Calcium 7.8 L (8.4-10.2) mg/dL Phosphorus (2.5-4.5) mg/dL Magnesium 2.5 H (1.6-2.3) mg/dL Total Protein 4.8 L (6.3-8.2) g/dL Albumin 3.0 L (3.5-5.0) g/dL Crossmatch 02/28/17 02/28/17 02/28/17 Range/Units 17:02 17:45 18:02 WBC 13.6 H (3.8-10.6) k/uL RBC 3.89 L (4.30-5.90) m/uL Hgb 11.9 L (13.0-17.5) gm/dL Hct 35.4 L (39.0-53.0) % Plt Count (150-450) k/uL Neutrophils # 12.0 H (1.3-7.7) k/uL Lymphocytes # 0.8 L (1.0-4.8) k/uL ABG pO2 (83-108) mmHg ABG Total CO2 (19-24) mmol/L ABG O2 Saturation (94-97) % Chloride (98-107) mmol/L Glucose (74-99) mg/dL POC Glucose (mg/dL) 115 H 123 H (75-99) mg/dL Calcium (8.4-10.2) mg/dL Phosphorus (2.5-4.5) mg/dL Magnesium (1.6-2.3) mg/dL Total Protein (6.3-8.2) g/dL Albumin (3.5-5.0) g/dL Crossmatch 02/28/17 02/28/17 02/28/17 Range/Units 19:10 20:07 20:56 WBC (3.8-10.6) k/uL RBC (4.30-5.90) m/uL Hgb (13.0-17.5) gm/dL Hct (39.0-53.0) % Plt Count (150-450) k/uL Neutrophils # (1.3-7.7) k/uL Lymphocytes # (1.0-4.8) k/uL ABG pO2 (83-108) mmHg ABG Total CO2 (19-24) mmol/L ABG O2 Saturation (94-97) % Chloride (98-107) mmol/L Glucose (74-99) mg/dL POC Glucose (mg/dL) 137 H 133 H 133 H (75-99) mg/dL Calcium (8.4-10.2) mg/dL Phosphorus (2.5-4.5) mg/dL Magnesium (1.6-2.3) mg/dL Total Protein (6.3-8.2) g/dL Albumin (3.5-5.0) g/dL Crossmatch 02/28/17 02/28/17 02/28/17 Range/Units 21:00 21:00 21:15 WBC 14.7 H (3.8-10.6) k/uL RBC 3.85 L (4.30-5.90) m/uL Hgb 11.8 L (13.0-17.5) gm/dL Hct 35.0 L (39.0-53.0) % Plt Count (150-450) k/uL Neutrophils # 13.2 H (1.3-7.7) k/uL Lymphocytes # 0.6 L (1.0-4.8) k/uL ABG pO2 (83-108) mmHg ABG Total CO2 (19-24) mmol/L ABG O2 Saturation (94-97) % Chloride (98-107) mmol/L Glucose 124 H (74-99) mg/dL POC Glucose (mg/dL) (75-99) mg/dL Calcium 7.9 L (8.4-10.2) mg/dL Phosphorus 2.4 L (2.5-4.5) mg/dL Magnesium (1.6-2.3) mg/dL Total Protein (6.3-8.2) g/dL Albumin (3.5-5.0) g/dL Crossmatch 02/28/17 02/28/17 03/01/17 Range/Units 22:18 23:28 00:06 WBC (3.8-10.6) k/uL RBC (4.30-5.90) m/uL Hgb (13.0-17.5) gm/dL Hct (39.0-53.0) % Plt Count (150-450) k/uL Neutrophils # (1.3-7.7) k/uL Lymphocytes # (1.0-4.8) k/uL ABG pO2 (83-108) mmHg ABG Total CO2 (19-24) mmol/L ABG O2 Saturation (94-97) % Chloride (98-107) mmol/L Glucose (74-99) mg/dL POC Glucose (mg/dL) 128 H 138 H 141 H (75-99) mg/dL Calcium (8.4-10.2) mg/dL Phosphorus (2.5-4.5) mg/dL Magnesium (1.6-2.3) mg/dL Total Protein (6.3-8.2) g/dL Albumin (3.5-5.0) g/dL Crossmatch 03/01/17 03/01/17 03/01/17 Range/Units 00:31 01:18 02:07 WBC (3.8-10.6) k/uL RBC (4.30-5.90) m/uL Hgb (13.0-17.5) gm/dL Hct (39.0-53.0) % Plt Count (150-450) k/uL Neutrophils # (1.3-7.7) k/uL Lymphocytes # (1.0-4.8) k/uL ABG pO2 126 H (83-108) mmHg ABG Total CO2 25 H (19-24) mmol/L ABG O2 Saturation 99.0 H (94-97) % Chloride (98-107) mmol/L Glucose (74-99) mg/dL POC Glucose (mg/dL) 140 H 149 H (75-99) mg/dL Calcium (8.4-10.2) mg/dL Phosphorus (2.5-4.5) mg/dL Magnesium (1.6-2.3) mg/dL Total Protein (6.3-8.2) g/dL Albumin (3.5-5.0) g/dL Crossmatch 03/01/17 03/01/17 03/01/17 Range/Units 03:23 04:27 04:30 WBC (3.8-10.6) k/uL RBC 3.74 L (4.30-5.90) m/uL Hgb 11.6 L (13.0-17.5) gm/dL Hct 33.9 L (39.0-53.0) % Plt Count (150-450) k/uL Neutrophils # 8.7 H (1.3-7.7) k/uL Lymphocytes # 0.5 L (1.0-4.8) k/uL ABG pO2 (83-108) mmHg ABG Total CO2 (19-24) mmol/L ABG O2 Saturation (94-97) % Chloride (98-107) mmol/L Glucose (74-99) mg/dL POC Glucose (mg/dL) 137 H 136 H (75-99) mg/dL Calcium (8.4-10.2) mg/dL Phosphorus (2.5-4.5) mg/dL Magnesium (1.6-2.3) mg/dL Total Protein (6.3-8.2) g/dL Albumin (3.5-5.0) g/dL Crossmatch 03/01/17 03/01/17 03/01/17 Range/Units 04:30 06:13 08:04 WBC (3.8-10.6) k/uL RBC (4.30-5.90) m/uL Hgb (13.0-17.5) gm/dL Hct (39.0-53.0) % Plt Count (150-450) k/uL Neutrophils # (1.3-7.7) k/uL Lymphocytes # (1.0-4.8) k/uL ABG pO2 (83-108) mmHg ABG Total CO2 (19-24) mmol/L ABG O2 Saturation (94-97) % Chloride (98-107) mmol/L Glucose 131 H (74-99) mg/dL POC Glucose (mg/dL) 132 H 131 H (75-99) mg/dL Calcium 8.0 L (8.4-10.2) mg/dL Phosphorus (2.5-4.5) mg/dL Magnesium (1.6-2.3) mg/dL Total Protein 5.1 L (6.3-8.2) g/dL Albumin 3.4 L (3.5-5.0) g/dL Crossmatch 03/01/17 03/01/17 Range/Units 08:32 12:02 WBC (3.8-10.6) k/uL RBC (4.30-5.90) m/uL Hgb (13.0-17.5) gm/dL Hct (39.0-53.0) % Plt Count (150-450) k/uL Neutrophils # (1.3-7.7) k/uL Lymphocytes # (1.0-4.8) k/uL ABG pO2 (83-108) mmHg ABG Total CO2 (19-24) mmol/L ABG O2 Saturation (94-97) % Chloride (98-107) mmol/L Glucose (74-99) mg/dL POC Glucose (mg/dL) 124 H 137 H (75-99) mg/dL Calcium (8.4-10.2) mg/dL Phosphorus (2.5-4.5) mg/dL Magnesium (1.6-2.3) mg/dL Total Protein (6.3-8.2) g/dL Albumin (3.5-5.0) g/dL Crossmatch - Imaging and Cardiology Chest x-ray: report reviewed, image reviewed Assessment and Plan (1) Coronary artery disease Status: Acute (2) Hypertension Status: Acute Plan: 1. Continue aspirin, Lipitor, Plavix, Lopressor. Will increase Lopressor to 25 mg by mouth twice a day. Will maximize beta fabricio therapy as tolerated. 2. Cardizem drip discontinued. 3. [place] discontinued. 4. Continue to encourage incentive spirometry. 5. Increase activity, out of bed to chair. Physical therapy to follow. 6. GI/DVT prophylaxis. 7. Will monitor daily labs, x-rays. 8. Insulin drip/diabetic management per primary care service. 9. More recommendations as patient progresses. Time with Patient: Greater than 30
[2017-03-01] MEDS: METOPROLOL TARTRATE 12.5 MG TAB PO ONE (13:10)
[2017-03-01] MEDS ORDERED: BISACODYL 10 MG SUPP RECTAL PRN (14:57)
[2017-03-01] MEDS ORDERED: IPRATROPIUM-ALBUTEROL 3 ML NEB INHALATION SCH (14:58)
[2017-03-01] MEDS ORDERED: IPRATROPIUM-ALBUTEROL 3 ML NEB INHALATION PRN (14:58)
--- NOTE | 2017-03-01 15:10 | P.PN ---
Subjective 62-year-old male one of Dr. Sherman patient with past medical history of hypertension who apparently developed to have slight exertional dyspnea with increased fatigue and symptoms patient had EKG did not show any major abnormality. Patient was result came back significantly abnormal. Patient was for 2 Dr. Frias and ended up having heart catheter in 01/28/2017 result were consistent with 3 vessel disease including distal lesion in the LAD along with the RCA. Patient was referred to cardiothoracic and ended up being scheduled for elective CABG. Surgery was done today successfully patient had 4 vessel CABG SOSA to the LAD saphenous to the RCA saphenous to the diagonal and saphenous to the PDA. Patient developed to have mild hypoxia and significant change in chest x-ray after procedure while he is on mechanical ventilation. Dr. Bazan ended up doing bedside bronchoscopy and found large sputum plug was taking out his lung expanded nicely did well. Patient remain on mechanical ventilation currently his oxygen saturation has been good. No arrhythmia or A. fib was found hemodynamically stable on minimum vasopressor. Patient blood sugar still mildly elevated patient is on minimum dose of insulin drip currently. 03/01: Patient has been successfully extubated and is on O2 at 2 L nasal cannula. Blood blood glucose running between 124 and 136 and he is off insulin drip. Hemoglobin is stable at 11.6. He remains with chest tubes in place as well as Mao catheter. His pain is currently controlled. Objective - Vital Signs Vital signs: Vital Signs Temp 98.3 F 02/28/17 06:00 Pulse 64 03/01/17 08:38 Resp 14 03/01/17 07:00 BP 125/72 02/28/17 06:00 Pulse Ox 100 03/01/17 07:00 Intake & Output 02/28/17 03/01/17 03/01/17 18:59 06:59 18:59 Intake Total 957.571 5541.507 50 Output Total 4705 1203 89 Balance -4051.375 32.507 -39 Weight 109.5 kg Intake: IV 150 740 50 .0 pressure bag 40 ACETAMINOPHEN IV (For NPO 100 ) 1,000 mg In Empty Bag 1 bag @ 400 mls/hr IVPB Q6HR [facility] Rx#:[id number] Lactated Ringers 1,000 ml 150 600 50 @ 50 mls/hr IV .Q20H [facility] Rx#:[id number] Intake, IV Titration 503.625 315.507 Amount Albumin Human 5% 250 ml 500 In Empty Bag 1 bag @ 250 mls/hr IVPB Q1HR [facility]N Rx#: [id number] Diltiazem 125 mg In 76.500 Sodium Chloride 0.9% 100 ml @ 10 MG/HR 10 mls/hr IV .[id number] [facility] Rx#: [id number] Insulin Regular 100 unit 21.456 In Sodium Chloride 0.9% 100 ml @ Per Protocol IV .Q0M [facility] Rx#:[id number] Nitroglycerin-D5w Pmx 50 3.625 mg In Dextrose/Water 1 250ml.bag @ 10 MCG/MIN 3 mls/hr IV .Q24H [facility] Rx#: [id number] Norepinephrin 4 mg-0.9% 117.125 Ns Pmx 4 mg In 250 ml @ Titrate IV .Q0M [facility] Rx#: [id number] Propofol 500 mg In Empty 100.426 Bag 1 bag @ Titrate IV . Q0M [facility] Rx#:[id number] Oral 180 Output: Chest Tube Drainage 350 293 24 Chest Tube Left Lateral 150 87 4 Chest Chest Tube Mediastinal 200 206 20 Urine 2855 910 65 Estimated Blood Loss 1500 Other: Voiding Method Indwelling Catheter Indwelling Catheter # Bowel Movements 0 ABP, PAP, CO, CI - Last Documented Arterial Blood Pressure 134/58 Pulmonary Artery Pressure 33/17 Cardiac Output 4.8 Cardiac Index 2.7 - Exam General appearance: no average body habitus, no cooperative, no disheveled, no mild distress, no morbidly obese, no acute distress, obese, no severe distress, no thin - EENT Eyes: no abnormal pupil, no anicteric sclerae, no disc margins sharp, no edentulous, no EOMI, no PERRLA, no fundus normal, no photophobia, no dentition normal, no poor dentition, no ptosis, no scleral icterus, normal appearance Ears: bilateral: normal - Neck Neck: no lymphadenopathy, normal ROM, no other, no rigidity, no stridor, no thyromegaly Carotids: bilateral: upstroke normal Thyroid: bilateral: normal size - Respiratory Respiratory: left: diminished, dullness, rales - Cardiovascular Rhythm: regular Heart sounds: normal: S1, S2 - Gastrointestinal General gastrointestinal: distended, normal bowel sounds, soft - Integumentary Integumentary: no calor, no cellulitis, no cyanotic, no decreased turgor, no flushed, no jaundiced, normal, no normal turgor, no pale, no rash, no ulcer - Neurologic Alert and oriented 3, cranial nerves II through XII grossly intact. - Musculoskeletal Musculoskeletal: strength equal bilaterally - Psychiatric Normal affect. - Labs CBC & Chem 7: 03/01/17 04:30 03/01/17 04:30 Labs: Abnormal Lab Results - Last 24 Hours (Table) 02/22/17 02/28/17 02/28/17 Range/Units 09:05 09:32 10:53 WBC (3.8-10.6) k/uL RBC (4.30-5.90) m/uL Hgb (13.0-17.5) gm/dL Hct (39.0-53.0) % Plt Count (150-450) k/uL Neutrophils # (1.3-7.7) k/uL Lymphocytes # (1.0-4.8) k/uL ABG pO2 (83-108) mmHg ABG Total CO2 (19-24) mmol/L ABG O2 Saturation (94-97) % Chloride (98-107) mmol/L Glucose (74-99) mg/dL POC Glucose (mg/dL) 115 H 111 H (75-99) mg/dL Calcium (8.4-10.2) mg/dL Phosphorus (2.5-4.5) mg/dL Magnesium (1.6-2.3) mg/dL Total Protein (6.3-8.2) g/dL Albumin (3.5-5.0) g/dL Crossmatch See Detail 02/28/17 02/28/17 02/28/17 Range/Units 11:37 12:03 13:01 WBC (3.8-10.6) k/uL RBC (4.30-5.90) m/uL Hgb (13.0-17.5) gm/dL Hct (39.0-53.0) % Plt Count (150-450) k/uL Neutrophils # (1.3-7.7) k/uL Lymphocytes # (1.0-4.8) k/uL ABG pO2 (83-108) mmHg ABG Total CO2 (19-24) mmol/L ABG O2 Saturation (94-97) % Chloride (98-107) mmol/L Glucose (74-99) mg/dL POC Glucose (mg/dL) 189 H 187 H 159 H (75-99) mg/dL Calcium (8.4-10.2) mg/dL Phosphorus (2.5-4.5) mg/dL Magnesium (1.6-2.3) mg/dL Total Protein (6.3-8.2) g/dL Albumin (3.5-5.0) g/dL Crossmatch 02/28/17 02/28/17 02/28/17 Range/Units 14:01 15:25 15:25 WBC (3.8-10.6) k/uL RBC 3.83 L (4.30-5.90) m/uL Hgb 12.0 L D (13.0-17.5) gm/dL Hct 34.4 L (39.0-53.0) % Plt Count 131 L D (150-450) k/uL Neutrophils # (1.3-7.7) k/uL Lymphocytes # 0.8 L (1.0-4.8) k/uL ABG pO2 (83-108) mmHg ABG Total CO2 (19-24) mmol/L ABG O2 Saturation (94-97) % Chloride 108 H (98-107) mmol/L Glucose (74-99) mg/dL POC Glucose (mg/dL) 128 H (75-99) mg/dL Calcium 7.8 L (8.4-10.2) mg/dL Phosphorus (2.5-4.5) mg/dL Magnesium 2.5 H (1.6-2.3) mg/dL Total Protein 4.8 L (6.3-8.2) g/dL Albumin 3.0 L (3.5-5.0) g/dL Crossmatch 02/28/17 02/28/17 02/28/17 Range/Units 15:40 17:02 17:45 WBC 13.6 H (3.8-10.6) k/uL RBC 3.89 L (4.30-5.90) m/uL Hgb 11.9 L (13.0-17.5) gm/dL Hct 35.4 L (39.0-53.0) % Plt Count (150-450) k/uL Neutrophils # 12.0 H (1.3-7.7) k/uL Lymphocytes # 0.8 L (1.0-4.8) k/uL ABG pO2 228 H (83-108) mmHg ABG Total CO2 (19-24) mmol/L ABG O2 Saturation 100.0 H (94-97) % Chloride (98-107) mmol/L Glucose (74-99) mg/dL POC Glucose (mg/dL) 115 H (75-99) mg/dL Calcium (8.4-10.2) mg/dL Phosphorus (2.5-4.5) mg/dL Magnesium (1.6-2.3) mg/dL Total Protein (6.3-8.2) g/dL Albumin (3.5-5.0) g/dL Crossmatch 02/28/17 02/28/17 02/28/17 Range/Units 18:02 19:10 20:07 WBC (3.8-10.6) k/uL RBC (4.30-5.90) m/uL Hgb (13.0-17.5) gm/dL Hct (39.0-53.0) % Plt Count (150-450) k/uL Neutrophils # (1.3-7.7) k/uL Lymphocytes # (1.0-4.8) k/uL ABG pO2 (83-108) mmHg ABG Total CO2 (19-24) mmol/L ABG O2 Saturation (94-97) % Chloride (98-107) mmol/L Glucose (74-99) mg/dL POC Glucose (mg/dL) 123 H 137 H 133 H (75-99) mg/dL Calcium (8.4-10.2) mg/dL Phosphorus (2.5-4.5) mg/dL Magnesium (1.6-2.3) mg/dL Total Protein (6.3-8.2) g/dL Albumin (3.5-5.0) g/dL Crossmatch 02/28/17 02/28/17 02/28/17 Range/Units 20:56 21:00 21:00 WBC 14.7 H (3.8-10.6) k/uL RBC 3.85 L (4.30-5.90) m/uL Hgb 11.8 L (13.0-17.5) gm/dL Hct 35.0 L (39.0-53.0) % Plt Count (150-450) k/uL Neutrophils # 13.2 H (1.3-7.7) k/uL Lymphocytes # 0.6 L (1.0-4.8) k/uL ABG pO2 (83-108) mmHg ABG Total CO2 (19-24) mmol/L ABG O2 Saturation (94-97) % Chloride (98-107) mmol/L Glucose 124 H (74-99) mg/dL POC Glucose (mg/dL) 133 H (75-99) mg/dL Calcium 7.9 L (8.4-10.2) mg/dL Phosphorus (2.5-4.5) mg/dL Magnesium (1.6-2.3) mg/dL Total Protein (6.3-8.2) g/dL Albumin (3.5-5.0) g/dL Crossmatch 02/28/17 02/28/17 02/28/17 Range/Units 21:15 22:18 23:28 WBC (3.8-10.6) k/uL RBC (4.30-5.90) m/uL Hgb (13.0-17.5) gm/dL Hct (39.0-53.0) % Plt Count (150-450) k/uL Neutrophils # (1.3-7.7) k/uL Lymphocytes # (1.0-4.8) k/uL ABG pO2 (83-108) mmHg ABG Total CO2 (19-24) mmol/L ABG O2 Saturation (94-97) % Chloride (98-107) mmol/L Glucose (74-99) mg/dL POC Glucose (mg/dL) 128 H 138 H (75-99) mg/dL Calcium (8.4-10.2) mg/dL Phosphorus 2.4 L (2.5-4.5) mg/dL Magnesium (1.6-2.3) mg/dL Total Protein (6.3-8.2) g/dL Albumin (3.5-5.0) g/dL Crossmatch 03/01/17 03/01/17 03/01/17 Range/Units 00:06 00:31 01:18 WBC (3.8-10.6) k/uL RBC (4.30-5.90) m/uL Hgb (13.0-17.5) gm/dL Hct (39.0-53.0) % Plt Count (150-450) k/uL Neutrophils # (1.3-7.7) k/uL Lymphocytes # (1.0-4.8) k/uL ABG pO2 126 H (83-108) mmHg ABG Total CO2 25 H (19-24) mmol/L ABG O2 Saturation 99.0 H (94-97) % Chloride (98-107) mmol/L Glucose (74-99) mg/dL POC Glucose (mg/dL) 141 H 140 H (75-99) mg/dL Calcium (8.4-10.2) mg/dL Phosphorus (2.5-4.5) mg/dL Magnesium (1.6-2.3) mg/dL Total Protein (6.3-8.2) g/dL Albumin (3.5-5.0) g/dL Crossmatch 03/01/17 03/01/17 03/01/17 Range/Units 02:07 03:23 04:27 WBC (3.8-10.6) k/uL RBC (4.30-5.90) m/uL Hgb (13.0-17.5) gm/dL Hct (39.0-53.0) % Plt Count (150-450) k/uL Neutrophils # (1.3-7.7) k/uL Lymphocytes # (1.0-4.8) k/uL ABG pO2 (83-108) mmHg ABG Total CO2 (19-24) mmol/L ABG O2 Saturation (94-97) % Chloride (98-107) mmol/L Glucose (74-99) mg/dL POC Glucose (mg/dL) 149 H 137 H 136 H (75-99) mg/dL Calcium (8.4-10.2) mg/dL Phosphorus (2.5-4.5) mg/dL Magnesium (1.6-2.3) mg/dL Total Protein (6.3-8.2) g/dL Albumin (3.5-5.0) g/dL Crossmatch 03/01/17 03/01/17 03/01/17 Range/Units 04:30 04:30 06:13 WBC (3.8-10.6) k/uL RBC 3.74 L (4.30-5.90) m/uL Hgb 11.6 L (13.0-17.5) gm/dL Hct 33.9 L (39.0-53.0) % Plt Count (150-450) k/uL Neutrophils # 8.7 H (1.3-7.7) k/uL Lymphocytes # 0.5 L (1.0-4.8) k/uL ABG pO2 (83-108) mmHg ABG Total CO2 (19-24) mmol/L ABG O2 Saturation (94-97) % Chloride (98-107) mmol/L Glucose 131 H (74-99) mg/dL POC Glucose (mg/dL) 132 H (75-99) mg/dL Calcium 8.0 L (8.4-10.2) mg/dL Phosphorus (2.5-4.5) mg/dL Magnesium (1.6-2.3) mg/dL Total Protein 5.1 L (6.3-8.2) g/dL Albumin 3.4 L (3.5-5.0) g/dL Crossmatch 03/01/17 03/01/17 Range/Units 08:04 08:32 WBC (3.8-10.6) k/uL RBC (4.30-5.90) m/uL Hgb (13.0-17.5) gm/dL Hct (39.0-53.0) % Plt Count (150-450) k/uL Neutrophils # (1.3-7.7) k/uL Lymphocytes # (1.0-4.8) k/uL ABG pO2 (83-108) mmHg ABG Total CO2 (19-24) mmol/L ABG O2 Saturation (94-97) % Chloride (98-107) mmol/L Glucose (74-99) mg/dL POC Glucose (mg/dL) 131 H 124 H (75-99) mg/dL Calcium (8.4-10.2) mg/dL Phosphorus (2.5-4.5) mg/dL Magnesium (1.6-2.3) mg/dL Total Protein (6.3-8.2) g/dL Albumin (3.5-5.0) g/dL Crossmatch Assessment and Plan Plan: 1 CAD with multiple vessel disease: Patient had CABG stable so far and doing well. 2 post CABG: Patient had 4 vessel stable in the ICU. 3 respiratory failure: Successfully extubated and status post bronchoscopy and removal of mucous plug. 4 hyperglycemia: Continue patient on insulin drip and try to keep his blood sugar below 120. 5 hypertension: Patient was on losartan as an outpatient is currently on hydralazine and beta fabricio will adjust his medication after his ET tube is out. 6 GI prophylaxis: Patient will continue on metoprolol IV. 7 DVT prophylaxis continue Lovenox. CODE STATUS: Full code. Discharge plan: To be determined Impression and plan of care have been directed as dictated by the signing physician. Serenity Peoples nurse practitioner acting as scribe for signing physician.
[2017-03-01 17:21] LABS: Glucose,Whole Blood 118 mg/dL (75-99)
[2017-03-01] MEDS: CLEVIDIPINE BUTYRATE 25 MG in EMPTY BAG 1 BAG IV SCH (18:58)
[2017-03-01 19:50] LABS: Glucose,Whole Blood 126 mg/dL (75-99)
[2017-03-01] MEDS: METOPROLOL TARTRATE 25 MG TAB PO SCH (19:50)
[2017-03-01] MEDS: SENNOSIDES-DOCUSATE SODIUM 1 EACH TAB PO SCH (19:53)
[2017-03-01] MEDS: LACTATED RINGERS 1,000 ML IV SCH (20:29)
[2017-03-01 21:02] LABS: Magnesium 2.2 mg/dL (1.6-2.3); Potassium 3.9 mmol/L (3.5-5.1)
[2017-03-01] MEDS ORDERED: HYDROcodone/APAP 5-325MG 1 EACH TAB PO PRN (23:59)
[2017-03-02] MEDS: HEPARIN SODIUM,PORCINE 5,000 UNIT/ML 1 ML VIAL SQ SCH ×3 (00:03→16:38)
[2017-03-02] MEDS: ceFAZolin 2 GM in SODIUM CHLORIDE 0.9% 100 ML IVPB SCH (00:03)
[2017-03-02 05:00] LABS: Basophils % (A) 0 %; CHCM 33.2; Eosinophils # (A) 0.1 k/uL (0-0.7); Eosinophils % (A) 1 %; HCT 37.7 % (39.0-53.0); HDW 2.82; HGB 12.1 gm/dL (13.0-17.5); Luc # (Auto) 0.16; Luc % (Auto) 1; Lymphocytes # (A) 1.3 k/uL (1.0-4.8); Lymphocytes % (A) 9 %; MCH 30.2 pg (25.0-35.0); MCHC 32.1 g/dL (31.0-37.0); MCV 94.1 fL (80.0-100.0); Mean Platelet Volume 8.3; Monocytes % (A) 7 %; Neutrophils # (A) 11.7 k/uL (1.3-7.7); Neutrophils % (A) 82 %; RBC 4.01 m/uL (4.30-5.90); RDW 13.5 % (11.5-15.5); WBC 14.2 k/uL (3.8-10.6); WBC (Perox) 12.31
[2017-03-02 05:07] LABS: Ionized Calcium 4.5 mg/dL (4.5-5.3)
[2017-03-02 05:08] LABS: Prothrombin Time 10.1 sec (9.0-12.0)
[2017-03-02 05:15] LABS: ALT 38 U/L (21-72); AST 29 U/L (17-59); Alkaline Phosphatase 69 U/L (38-126); Anion Gap 8 mmol/L; Blood Urea Nitrogen 12 mg/dL (9-20); Calcium 8.1 mg/dL (8.4-10.2); Carbon Dioxide 27 mmol/L (22-30); Chloride 103 mmol/L (98-107); Glucose 116 mg/dL (74-99); Magnesium 2.2 mg/dL (1.6-2.3); Non-African American GFR(MDRD) >60 (>60 ml/min/1.73 sqM); Phosphorous 2.5 mg/dL (2.5-4.5); Potassium 4.3 mmol/L (3.5-5.1); Sodium 138 mmol/L (137-145); Total Bilirubin 0.8 mg/dL (0.2-1.3); Total Protein 5.3 g/dL (6.3-8.2)
--- NOTE | 2017-03-02 07:11 | XR ---
EXAMINATION TYPE: XR chest 1V portable DATE OF EXAM: 03/02/2017 HISTORY: Post Operative Cardiac Surgery. REFERENCE: Previous study dated 03/01/2017. FINDINGS: There has been a midline sternotomy. There is a left pleural drain in place. Heart is mildl y prominent. There is left basilar airspace disease. No significant a few IMPRESSION: CONTINUING POSTOPERATIVE CHANGE.
[2017-03-02] MEDS: IPRATROPIUM-ALBUTEROL 3 ML NEB INHALATION SCH ×4 (07:26→19:48)
[2017-03-02 07:42] LABS: ABG HCO3 24 mmol/L (21-25); ABG PCO2 35 mmHg (35-45); ABG PH 7.44 (7.35-7.45); ABG PO2 >420 mmHg (83-108)
[2017-03-02 07:43] LABS: ABG PCO2 42 mmHg (35-45); ABG PH 7.35 (7.35-7.45); ABG PO2 361 mmHg (83-108)
[2017-03-02 07:43] LABS: ABG Base Excess 0.4 mmol/L; ABG TCO2 25 mmol/L (19-24)
[2017-03-02 07:43] LABS: Glucose,Whole Blood 109 mg/dL (75-99)
[2017-03-02 07:44] LABS: ABG Base Excess -2.1 mmol/L; ABG HCO3 23 mmol/L (21-25); ABG Oxygen Saturation 99.9 % (94-97); ABG TCO2 24 mmol/L (19-24)
[2017-03-02 07:44] LABS: ABG PCO2 41 mmHg (35-45); ABG PH 7.36 (7.35-7.45); ABG PO2 208 mmHg (83-108)
[2017-03-02 07:45] LABS: ABG PCO2 40 mmHg (35-45); ABG PH 7.38 (7.35-7.45); ABG PO2 207 mmHg (83-108)
[2017-03-02 07:45] LABS: ABG HCO3 23 mmol/L (21-25); ABG Oxygen Saturation 99.7 % (94-97); ABG TCO2 24 mmol/L (19-24)
[2017-03-02 07:46] LABS: ABG Base Excess -1.1 mmol/L; ABG HCO3 23 mmol/L (21-25); ABG Oxygen Saturation 99.7 % (94-97); ABG TCO2 25 mmol/L (19-24)
[2017-03-02 07:47] LABS: ABG Base Excess -2.1 mmol/L; ABG HCO3 23 mmol/L (21-25); ABG Oxygen Saturation 99.9 % (94-97); ABG PCO2 42 mmHg (35-45); ABG PH 7.35 (7.35-7.45); ABG PO2 328 mmHg (83-108); ABG TCO2 24 mmol/L (19-24)
[2017-03-02 07:48] LABS: ABG Base Excess -2.2 mmol/L; ABG HCO3 23 mmol/L (21-25); ABG Oxygen Saturation 99.7 % (94-97); ABG PCO2 44 mmHg (35-45); ABG PH 7.34 (7.35-7.45); ABG PO2 221 mmHg (83-108); ABG TCO2 24 mmol/L (19-24)
[2017-03-02] MEDS: METOPROLOL TARTRATE 25 MG TAB PO SCH ×2 (08:27→20:12)
[2017-03-02] MEDS: INSULIN LISPRO (humaLOG) 300 UNIT/3 ML VIAL SQ SCH ×4 (08:27→20:12)
[2017-03-02] MEDS: ASPIRIN 325 MG TAB PO SCH (08:28)
[2017-03-02] MEDS: ATORVASTATIN 40 MG TAB PO SCH (08:28)
[2017-03-02] MEDS: PANTOPRAZOLE 40 MG TABLET PO SCH (08:28)
[2017-03-02] MEDS: CLOPIDOGREL 75 MG TAB PO SCH (08:28)
[2017-03-02] MEDS: HYDROcodone/APAP 5-325MG 1 EACH TAB PO PRN ×3 (08:31→18:30)
--- NOTE | 2017-03-02 08:37 | CONS ---
A 62-year-old gentleman, patient of Dr. Frias, who has significant triple vessel disease, underwent aortocoronary bypass surgery yesterday with SOSA to LAD and separate vein graft to the diagonal branch of LAD, PLV branch of RCA and PDA branch of RCA. Postoperatively he is extubated, doing well and remains in sinus rhythm, hemodynamically stable and not on any pressors. PAST MEDICAL HISTORY: CAD status post cath, hypertension, hyperlipidemia. On examination, blood pressure is 130/70, pulse rate 70 per minute in sinus. HEENT unremarkable. Fundus was not examined by me. Neck is supple. No JVD. Heart exam reveals S1, S2 without any rub, murmur or gallop. Lungs reveal fair air entry bilaterally. Abdomen and lower extremity exams are unremarkable. IMPRESSION: 1. Status post aortocoronary bypass surgery, stable. 2. Hypertension. 3. Hyperlipidemia. RECOMMENDATIONS: I would recommend that we continue current medications, resume his statins and beta-blockers. Continue incentive spirometry and pulmonary toilet and hopefully he can be moved into the telemetry unit as of tomorrow or day after. GER
--- NOTE | 2017-03-02 09:32 | P.PN ---
Addendum entered and electronically signed by Zoraida Rosas NP-C 03/02/17 11:59 : Addendum: mediastinal and left pleural chest tubes discontinued without incident. Pt tra well. CXR in AM Original Note: <Zoraida Rosas - Last Filed: 03/02/17 09:31> Subjective Principal diagnosis: Anginal equivalent triple-vessel coronary artery disease. Hypertension. POD #2 coronary artery bypass grafting 4 with left internal mammary artery to the left anterior descending artery, reverse saphenous vein graft off the aorta to the diagonal artery, the posterior descending artery and the posterior ventricular branch of the right coronary artery with endoscopic vein harvesting and intraoperative LUIS E. Postoperative right upper lobe atelectasis, and expected outcome of surgery. POD #2 bronchoscopy with removal of a mucous plug. Patient currently sitting up in the recliner in no acute distress. About to eat breakfast. States his pain is well-controlled. Objective - Vital Signs Vital signs: Vital Signs Temp 99.3 F 03/02/17 04:00 Pulse 79 03/02/17 08:00 Resp 20 03/02/17 08:00 BP 116/74 03/02/17 08:00 Pulse Ox 99 03/02/17 08:00 Intake & Output 03/01/17 03/02/17 03/02/17 18:59 06:59 18:59 Intake Total 698 690 40 Output Total 923 727 87 Balance -225 -37 -47 Weight 113 kg Intake: IV 598 440 40 .0 pressure bag 18 ACETAMINOPHEN IV (For NPO 100 100 ) 1,000 mg In Empty Bag 1 bag @ 400 mls/hr IVPB Q6HR [facility] Rx#:[id number] Lactated Ringers 1,000 ml 380 240 40 @ 20 mls/hr IV .Q24H [facility] Rx#:[id number] ceFAZolin 2 gm In Sodium 100 100 Chloride 0.9% 100 ml @ 100 mls/hr IVPB Q8HR [facility] Rx#:[id number] Oral 100 250 Output: Chest Tube Drainage 324 272 62 Chest Tube Left Lateral 74 112 52 Chest Chest Tube Mediastinal 250 160 10 Urine 599 455 25 Other: Voiding Method Indwelling Catheter Indwelling Catheter # Bowel Movements 0 ABP, PAP, CO, CI - Last Documented Arterial Blood Pressure 111/54 Pulmonary Artery Pressure 48/21 Cardiac Output 4.8 Cardiac Index 2.7 - Constitutional General appearance: Present: cooperative, no acute distress - Respiratory Details: Lungs sounds diminished bilaterally. Respirations even, nonlabored. Currently on 2 L nasal cannula oxygen saturation 96%. Able to achieve 1000 mL on his incentive spirometer. Left pleural chest tube to -20 cm wall suction, 110 mL drainage overnight, 230 mL in 24 hours. Mediastinal chest tube to -20 cm wall suction, 110 mL drainage overnight, 350 mL in the last 24 hours. No air leaks present. - Cardiovascular Details: S1, S2 present. Regular rate and rhythm, normal sinus rhythm on telemetry. Sternum stable. Heart hugger in place with patient demonstrating appropriate use. Ventricular epicardial pacemaker wire present, connected to generator, VVI with backup rate 50 bpm. Right internal jugular Cordis present. Teds/SCDs present. - Gastrointestinal Gastrointestinal Comment(s): Abdomen soft, nontender, nondistended. Active bowel sounds 4 quadrants. Tolerating diet. - Genitourinary Genitourinary Comment(s): Mao present draining clear, yellow urine. Output 25-50 mL per hour. - Integumentary Integumentary Comment(s): Anterior chest incision well approximated with Dermabond dressing. - Musculoskeletal Musculoskeletal: Present: gait normal, strength equal bilaterally - Psychiatric Psychiatric: Present: A&O x's 3, appropriate affect, intact judgment & insight - Allied health notes Allied health notes reviewed: nursing - Labs CBC & Chem 7: 03/02/17 04:45 03/02/17 04:45 Labs: Abnormal Lab Results - Last 24 Hours (Table) 02/28/17 02/28/17 02/28/17 Range/Units 09:33 10:53 11:36 WBC (3.8-10.6) k/uL RBC (4.30-5.90) m/uL Hgb (13.0-17.5) gm/dL Hct (39.0-53.0) % Neutrophils # (1.3-7.7) k/uL ABG pH (7.35-7.45) ABG pO2 >420 H 361 H 208 H (83-108) mmHg ABG Total CO2 25 H (19-24) mmol/L ABG O2 Saturation 100.0 H 99.9 H 99.7 H (94-97) % ABG Sodium 153 H (135-146) mmol/L ABG Potassium 5.7 H (3.4-4.5) mmol/L Glucose (74-99) mg/dL POC Glucose (mg/dL) (75-99) mg/dL Calcium (8.4-10.2) mg/dL Total Protein (6.3-8.2) g/dL Albumin (3.5-5.0) g/dL Arterial Blood Potassium 5.7 H (3.4-4.5) mmol/L 02/28/17 02/28/17 02/28/17 Range/Units 12:03 13:01 14:00 WBC (3.8-10.6) k/uL RBC (4.30-5.90) m/uL Hgb (13.0-17.5) gm/dL Hct (39.0-53.0) % Neutrophils # (1.3-7.7) k/uL ABG pH 7.34 L (7.35-7.45) ABG pO2 207 H 328 H 221 H (83-108) mmHg ABG Total CO2 25 H (19-24) mmol/L ABG O2 Saturation 99.7 H 99.9 H 99.7 H (94-97) % ABG Sodium (135-146) mmol/L ABG Potassium 5.9 H 5.1 H (3.4-4.5) mmol/L Glucose (74-99) mg/dL POC Glucose (mg/dL) (75-99) mg/dL Calcium (8.4-10.2) mg/dL Total Protein (6.3-8.2) g/dL Albumin (3.5-5.0) g/dL Arterial Blood Potassium 5.9 H 5.1 H (3.4-4.5) mmol/L 03/01/17 03/01/17 03/01/17 Range/Units 08:32 12:02 17:20 WBC (3.8-10.6) k/uL RBC (4.30-5.90) m/uL Hgb (13.0-17.5) gm/dL Hct (39.0-53.0) % Neutrophils # (1.3-7.7) k/uL ABG pH (7.35-7.45) ABG pO2 (83-108) mmHg ABG Total CO2 (19-24) mmol/L ABG O2 Saturation (94-97) % ABG Sodium (135-146) mmol/L ABG Potassium (3.4-4.5) mmol/L Glucose (74-99) mg/dL POC Glucose (mg/dL) 124 H 137 H 118 H (75-99) mg/dL Calcium (8.4-10.2) mg/dL Total Protein (6.3-8.2) g/dL Albumin (3.5-5.0) g/dL Arterial Blood Potassium (3.4-4.5) mmol/L 03/01/17 03/02/17 03/02/17 Range/Units 19:49 04:45 04:45 WBC 14.2 H (3.8-10.6) k/uL RBC 4.01 L (4.30-5.90) m/uL Hgb 12.1 L (13.0-17.5) gm/dL Hct 37.7 L (39.0-53.0) % Neutrophils # 11.7 H (1.3-7.7) k/uL ABG pH (7.35-7.45) ABG pO2 (83-108) mmHg ABG Total CO2 (19-24) mmol/L ABG O2 Saturation (94-97) % ABG Sodium (135-146) mmol/L ABG Potassium (3.4-4.5) mmol/L Glucose 116 H (74-99) mg/dL POC Glucose (mg/dL) 126 H (75-99) mg/dL Calcium 8.1 L (8.4-10.2) mg/dL Total Protein 5.3 L (6.3-8.2) g/dL Albumin 3.3 L (3.5-5.0) g/dL Arterial Blood Potassium (3.4-4.5) mmol/L 03/02/17 Range/Units 07:42 WBC (3.8-10.6) k/uL RBC (4.30-5.90) m/uL Hgb (13.0-17.5) gm/dL Hct (39.0-53.0) % Neutrophils # (1.3-7.7) k/uL ABG pH (7.35-7.45) ABG pO2 (83-108) mmHg ABG Total CO2 (19-24) mmol/L ABG O2 Saturation (94-97) % ABG Sodium (135-146) mmol/L ABG Potassium (3.4-4.5) mmol/L Glucose (74-99) mg/dL POC Glucose (mg/dL) 109 H (75-99) mg/dL Calcium (8.4-10.2) mg/dL Total Protein (6.3-8.2) g/dL Albumin (3.5-5.0) g/dL Arterial Blood Potassium (3.4-4.5) mmol/L - Imaging and Cardiology Chest x-ray: report reviewed, image reviewed Assessment and Plan (1) Coronary artery disease Status: Acute (2) Hypertension Status: Acute (3) Status post bronchoscopy Status: Acute (4) Status post coronary artery bypass graft Status: Acute Plan: 1. Continue aspirin, Lipitor, Plavix, Lopressor. Will maximize beta fabricio therapy as tolerated. 2. Will discontinue Mao, Cordis. Likely will discontinue chest tubes today. 3. Will give Lasix 40 mg IV push every 12 hours 4 doses. 4. Continue to encourage incentive spirometry. 5. Increase activity, ambulate in hallway. Physical therapy to follow. 6. GI/DVT prophylaxis. 7. Will monitor daily labs, x-rays. 8. Diabetic management per primary care service. 9. Will transfer to [facility] this afternoon. More recommendations as patient progresses. Time with Patient: Greater than 30 <Epi Peter - Last Filed: 03/02/17 14:03> Objective - Vital Signs Vital signs: Vital Signs Temp 98.7 F 03/02/17 12:00 Pulse 83 03/02/17 12:00 Resp 23 03/02/17 12:00 BP 121/67 03/02/17 12:00 Pulse Ox 97 03/02/17 12:00 Intake & Output 03/01/17 03/02/17 03/02/17 18:59 06:59 18:59 Intake Total 698 690 80 Output Total 247 72 647 Balance -225 -37 -567 Weight 113 kg 113 kg Intake: IV 598 440 80 .0 pressure bag 18 ACETAMINOPHEN IV (For NPO 100 100 ) 1,000 mg In Empty Bag 1 bag @ 400 mls/hr IVPB Q6HR [facility] Rx#:[id number] Lactated Ringers 1,000 ml 380 240 80 @ 20 mls/hr IV .Q24H [facility] Rx#:[id number] ceFAZolin 2 gm In Sodium 100 100 Chloride 0.9% 100 ml @ 100 mls/hr IVPB Q8HR [facility] Rx#:[id number] Oral 100 250 Output: Chest Tube Drainage 324 272 122 Chest Tube Left Lateral 74 112 72 Chest Chest Tube Mediastinal 250 160 50 Urine 599 455 525 Other: Voiding Method Indwelling Catheter Indwelling Catheter Indwelling Catheter # Bowel Movements 0 0 ABP, PAP, CO, CI - Last Documented Arterial Blood Pressure 111/54 Pulmonary Artery Pressure 48/21 Cardiac Output 4.8 Cardiac Index 2.7 - Labs CBC & Chem 7: 03/02/17 04:45 03/02/17 04:45 Labs: Abnormal Lab Results - Last 24 Hours (Table) 02/28/17 02/28/17 02/28/17 Range/Units 09:33 10:53 11:36 WBC (3.8-10.6) k/uL RBC (4.30-5.90) m/uL Hgb (13.0-17.5) gm/dL Hct (39.0-53.0) % Neutrophils # (1.3-7.7) k/uL ABG pH (7.35-7.45) ABG pO2 >420 H 361 H 208 H (83-108) mmHg ABG Total CO2 25 H (19-24) mmol/L ABG O2 Saturation 100.0 H 99.9 H 99.7 H (94-97) % ABG Sodium 153 H (135-146) mmol/L ABG Potassium 5.7 H (3.4-4.5) mmol/L Glucose (74-99) mg/dL POC Glucose (mg/dL) (75-99) mg/dL Calcium (8.4-10.2) mg/dL Total Protein (6.3-8.2) g/dL Albumin (3.5-5.0) g/dL Arterial Blood Potassium 5.7 H (3.4-4.5) mmol/L 02/28/17 02/28/17 02/28/17 Range/Units 12:03 13:01 14:00 WBC (3.8-10.6) k/uL RBC (4.30-5.90) m/uL Hgb (13.0-17.5) gm/dL Hct (39.0-53.0) % Neutrophils # (1.3-7.7) k/uL ABG pH 7.34 L (7.35-7.45) ABG pO2 207 H 328 H 221 H (83-108) mmHg ABG Total CO2 25 H (19-24) mmol/L ABG O2 Saturation 99.7 H 99.9 H 99.7 H (94-97) % ABG Sodium (135-146) mmol/L ABG Potassium 5.9 H 5.1 H (3.4-4.5) mmol/L Glucose (74-99) mg/dL POC Glucose (mg/dL) (75-99) mg/dL Calcium (8.4-10.2) mg/dL Total Protein (6.3-8.2) g/dL Albumin (3.5-5.0) g/dL Arterial Blood Potassium 5.9 H 5.1 H (3.4-4.5) mmol/L 03/01/17 03/01/17 03/02/17 Range/Units 17:20 19:49 04:45 WBC (3.8-10.6) k/uL RBC (4.30-5.90) m/uL Hgb (13.0-17.5) gm/dL Hct (39.0-53.0) % Neutrophils # (1.3-7.7) k/uL ABG pH (7.35-7.45) ABG pO2 (83-108) mmHg ABG Total CO2 (19-24) mmol/L ABG O2 Saturation (94-97) % ABG Sodium (135-146) mmol/L ABG Potassium (3.4-4.5) mmol/L Glucose 116 H (74-99) mg/dL POC Glucose (mg/dL) 118 H 126 H (75-99) mg/dL Calcium 8.1 L (8.4-10.2) mg/dL Total Protein 5.3 L (6.3-8.2) g/dL Albumin 3.3 L (3.5-5.0) g/dL Arterial Blood Potassium (3.4-4.5) mmol/L 03/02/17 03/02/17 03/02/17 Range/Units 04:45 07:42 13:02 WBC 14.2 H (3.8-10.6) k/uL RBC 4.01 L (4.30-5.90) m/uL Hgb 12.1 L (13.0-17.5) gm/dL Hct 37.7 L (39.0-53.0) % Neutrophils # 11.7 H (1.3-7.7) k/uL ABG pH (7.35-7.45) ABG pO2 (83-108) mmHg ABG Total CO2 (19-24) mmol/L ABG O2 Saturation (94-97) % ABG Sodium (135-146) mmol/L ABG Potassium (3.4-4.5) mmol/L Glucose (74-99) mg/dL POC Glucose (mg/dL) 109 H 112 H (75-99) mg/dL Calcium (8.4-10.2) mg/dL Total Protein (6.3-8.2) g/dL Albumin (3.5-5.0) g/dL Arterial Blood Potassium (3.4-4.5) mmol/L Assessment and Plan Plan: The patient was seen and examined. I agree with the above assessment and plan. Overall he looks good. We will start him on Lasix. We will remove his Mao catheter and Cordis this morning. We will likely discontinue his chest tubes later in the afternoon. Otherwise he has been ambulating without difficulty. His chest x-ray and laboratory studies were reviewed. He will be transferred [facility] today.
--- NOTE | 2017-03-02 09:34 | P.PN ---
Subjective Principal diagnosis: Coronary artery disease status post coronary artery bypass grafting 62-year-old male patient with multivessel coronary artery disease and an abnormal stress test was having chest pain and further cardiac catheterization showing multivessel coronary artery disease. Patient has a preserved LV function. The patient was taken to the operating room today and he underwent and he had four-vessel bypass surgery including SOSA to LAD. The surgery went fine and following that the patient was brought into the intensive care unit intubated on a mechanical ventilator. At this point in time the patient is on SIMV mode with a rate of 14, tidal volume of 600, FiO2 has been weaned down to 60% with a PEEP of 8. Immediate postoperative chest x-ray showed questionable loculated right upper lobe pneumothorax versus atelectasis of the right upper lobe. Chest x-ray was repeated and after bagging and recruiting maneuvers the abnormality remains unchanged. Based on that, a bedside bronchoscopy was done and limited mucous plug was seen to obstructive the orifice of the right upper lobe. Therapeutic airway suctioning was done. Subsequent chest x-ray showed improvement in the volume status. At this point in time, the patient is on 100 % FiO2 with a PEEP of 8. Hemodynamically his cardiac index of 2.2, pulmonary artery pressure of 46/23, he is on 2 mics of levo fed, 65 mics of the prevent, insulin drip for blood sugar control, Cardizem and nitroglycerin drip were placed on hold as the patient's blood pressure dropped and he is currently on few mics of levo fed as mentioned. Urine output is adequate. The patient is a mediastinal chest tube that showed no evidence of air leak. The patient also has a left pleural chest tube without evidence of air leak and the total amount of output from the pleural chest tube is approximately 350 since he arrived from the operating room. Apparently the output was high initially and improved as arrived to the ICU. On 03/01/2017 the patient is doing extremely well. As mentioned earlier postop the patient developed a right upper lobe atelectasis due to mucous plug that was suctioned out and therapeutic it was suctioning was done in the right upper lobe reexpanded. Following that the patient was gradually weaned off the mechanical ventilator overnight and the patient was extubated at around 1 AM this morning. The patient is doing extremely well. He is on 2 L of oxygen nasal cannula. He is pulling approximately thousand on the incentive spirometer. The left-sided pleural chest tube is draining around 180s since morning and a mediastinal tube has drained around 350. On his chest x-ray there is no evidence of pneumothorax and there is no evidence of any atelectasis. The [place] catheter has been removed. Insulin drip has been stopped and the patient is on sliding scale insulin for blood sugar control. The patient is on no pressors. The patient is maintaining his own blood pressure. Urine output is adequate or than 30 mL an hour. He is awake and alert and communicating. No significant pain. The patient is seen again today 03/02/2017 in follow-up in the intensive care unit. He is currently sitting up in the chair at the bedside. He is awake and alert in no acute distress. His mediastinal and left chest tube remain in place. His chest x-ray is stable with left basilar atelectasis. He is maintaining good O2 saturations in the high 90s on 2 L/m per nasal cannula. He is pulling approximately 1 L on the incentive spirometer. Slightly febrile at 99.3. White count 14.2. Hemodynamically stable. Hemoglobin 12.1. He is on no drips currently. Objective - Vital Signs Vital signs: Vital Signs Temp 99.3 F 03/02/17 04:00 Pulse 79 03/02/17 09:00 Resp 22 03/02/17 09:00 BP 118/72 03/02/17 09:00 Pulse Ox 99 03/02/17 09:00 Intake & Output 03/01/17 03/02/17 03/02/17 18:59 06:59 18:59 Intake Total 698 690 60 Output Total 923 727 92 Balance -225 -37 -32 Weight 113 kg Intake: IV 598 440 60 .0 pressure bag 18 ACETAMINOPHEN IV (For NPO 100 100 ) 1,000 mg In Empty Bag 1 bag @ 400 mls/hr IVPB Q6HR [facility] Rx#:[id number] Lactated Ringers 1,000 ml 380 240 60 @ 20 mls/hr IV .Q24H [facility] Rx#:[id number] ceFAZolin 2 gm In Sodium 100 100 Chloride 0.9% 100 ml @ 100 mls/hr IVPB Q8HR [facility] Rx#:[id number] Oral 100 250 Output: Chest Tube Drainage 324 272 62 Chest Tube Left Lateral 74 112 52 Chest Chest Tube Mediastinal 250 160 10 Urine 599 455 30 Other: Voiding Method Indwelling Catheter Indwelling Catheter # Bowel Movements 0 ABP, PAP, CO, CI - Last Documented Arterial Blood Pressure 111/54 Pulmonary Artery Pressure 48/21 Cardiac Output 4.8 Cardiac Index 2.7 - Exam Head exam was generally normal. There was no scleral icterus or corneal arcus. Mucous membranes were moist.the patient has a right IJ Cordis in place.Neck was supple and without jugular venous distension, thyromegaly, or carotid bruits. Carotids were easily palpable bilaterally. There was no adenopathy. Lung sounds are diminished bilaterally otherwise clear. Sternal stable clean and intact. The baseline in the pleural chest tubes are all in place.Cardiac exam revealed the PMI to be normally situated and sized. The rhythm was regular and no extrasystoles were noted during several minutes of auscultation. The first and second heart sounds were normal and physiologic splitting of the second heart sound was noted. There were no murmurs, rubs, clicks, or gallops.Abdominal exam revealed normal bowel sounds. The abdomen was soft, non- tender, and without masses, organomegaly, or appreciable enlargement of the abdominal aorta. MExamination of the extremities revealed easily palpable radial, femoral and pedal pulses. There was no cyanosis, clubbing or edema. - Labs CBC & Chem 7: 03/02/17 04:45 03/02/17 04:45 Labs: Abnormal Lab Results - Last 24 Hours (Table) 02/28/17 02/28/17 02/28/17 Range/Units 09:33 10:53 11:36 WBC (3.8-10.6) k/uL RBC (4.30-5.90) m/uL Hgb (13.0-17.5) gm/dL Hct (39.0-53.0) % Neutrophils # (1.3-7.7) k/uL ABG pH (7.35-7.45) ABG pO2 >420 H 361 H 208 H (83-108) mmHg ABG Total CO2 25 H (19-24) mmol/L ABG O2 Saturation 100.0 H 99.9 H 99.7 H (94-97) % ABG Sodium 153 H (135-146) mmol/L ABG Potassium 5.7 H (3.4-4.5) mmol/L Glucose (74-99) mg/dL POC Glucose (mg/dL) (75-99) mg/dL Calcium (8.4-10.2) mg/dL Total Protein (6.3-8.2) g/dL Albumin (3.5-5.0) g/dL Arterial Blood Potassium 5.7 H (3.4-4.5) mmol/L 02/28/17 02/28/17 02/28/17 Range/Units 12:03 13:01 14:00 WBC (3.8-10.6) k/uL RBC (4.30-5.90) m/uL Hgb (13.0-17.5) gm/dL Hct (39.0-53.0) % Neutrophils # (1.3-7.7) k/uL ABG pH 7.34 L (7.35-7.45) ABG pO2 207 H 328 H 221 H (83-108) mmHg ABG Total CO2 25 H (19-24) mmol/L ABG O2 Saturation 99.7 H 99.9 H 99.7 H (94-97) % ABG Sodium (135-146) mmol/L ABG Potassium 5.9 H 5.1 H (3.4-4.5) mmol/L Glucose (74-99) mg/dL POC Glucose (mg/dL) (75-99) mg/dL Calcium (8.4-10.2) mg/dL Total Protein (6.3-8.2) g/dL Albumin (3.5-5.0) g/dL Arterial Blood Potassium 5.9 H 5.1 H (3.4-4.5) mmol/L 03/01/17 03/01/17 03/01/17 Range/Units 12:02 17:20 19:49 WBC (3.8-10.6) k/uL RBC (4.30-5.90) m/uL Hgb (13.0-17.5) gm/dL Hct (39.0-53.0) % Neutrophils # (1.3-7.7) k/uL ABG pH (7.35-7.45) ABG pO2 (83-108) mmHg ABG Total CO2 (19-24) mmol/L ABG O2 Saturation (94-97) % ABG Sodium (135-146) mmol/L ABG Potassium (3.4-4.5) mmol/L Glucose (74-99) mg/dL POC Glucose (mg/dL) 137 H 118 H 126 H (75-99) mg/dL Calcium (8.4-10.2) mg/dL Total Protein (6.3-8.2) g/dL Albumin (3.5-5.0) g/dL Arterial Blood Potassium (3.4-4.5) mmol/L 03/02/17 03/02/17 03/02/17 Range/Units 04:45 04:45 07:42 WBC 14.2 H (3.8-10.6) k/uL RBC 4.01 L (4.30-5.90) m/uL Hgb 12.1 L (13.0-17.5) gm/dL Hct 37.7 L (39.0-53.0) % Neutrophils # 11.7 H (1.3-7.7) k/uL ABG pH (7.35-7.45) ABG pO2 (83-108) mmHg ABG Total CO2 (19-24) mmol/L ABG O2 Saturation (94-97) % ABG Sodium (135-146) mmol/L ABG Potassium (3.4-4.5) mmol/L Glucose 116 H (74-99) mg/dL POC Glucose (mg/dL) 109 H (75-99) mg/dL Calcium 8.1 L (8.4-10.2) mg/dL Total Protein 5.3 L (6.3-8.2) g/dL Albumin 3.3 L (3.5-5.0) g/dL Arterial Blood Potassium (3.4-4.5) mmol/L Assessment and Plan Plan: Assessment 1 multivessel coronary artery disease, status post four-vessel bypass surgery including SOSA to LAD. Patient is postop day #2 2 post thoracotomy, currently extubated on 2 liters of oxygen nasal cannula 3 right upper lobe atelectasis status post bronchoscopy and therapeutic airway suctioning of a tiny mucous plug with expression of the right upper lobe 4 postop to hypotension , brief, an expected outcome of cardiac surgery, recovered and the patient is currently on no pressors. 5 obstructive sleep apnea, history of 6 hyperlipidemia, history of 7 hypertension, history of Plan: The patient was seen and evaluated by Dr. Bazan. His chest x-ray and labs were reviewed. This chest tubes and pacer wires will be removed today. We will increase the patient's activity as tolerated. He is again encouraged regarding the increased use of the incentive spirometer and cough and deep breathing exercises. Continue bronchodilators. Repeat chest x-ray in the a.m. He is stable from the pulmonary and critical care standpoint and could be transferred out of the intensive care unit later today once cleared by cardiothoracic. We will continue to follow.
[2017-03-02] MEDS: FUROSEMIDE 10 MG/ML 4 ML VIAL IV SCH ×2 (10:22→20:11)
--- NOTE | 2017-03-02 10:22 | P.PN ---
Subjective 62-year-old male one of Dr. Sherman patient with past medical history of hypertension who apparently developed to have slight exertional dyspnea with increased fatigue and symptoms patient had EKG did not show any major abnormality. Patient was result came back significantly abnormal. Patient was for 2 Dr. Frias and ended up having heart catheter in 01/28/2017 result were consistent with 3 vessel disease including distal lesion in the LAD along with the RCA. Patient was referred to cardiothoracic and ended up being scheduled for elective CABG. Surgery was done today successfully patient had 4 vessel CABG SOSA to the LAD saphenous to the RCA saphenous to the diagonal and saphenous to the PDA. Patient developed to have mild hypoxia and significant change in chest x-ray after procedure while he is on mechanical ventilation. Dr. Bazan ended up doing bedside bronchoscopy and found large sputum plug was taking out his lung expanded nicely did well. Patient remain on mechanical ventilation currently his oxygen saturation has been good. No arrhythmia or A. fib was found hemodynamically stable on minimum vasopressor. Patient blood sugar still mildly elevated patient is on minimum dose of insulin drip currently. 03/01: Patient has been successfully extubated and is on O2 at 2 L nasal cannula. Blood blood glucose running between 124 and 136 and he is off insulin drip. Hemoglobin is stable at 11.6. He remains with chest tubes in place as well as Mao catheter. His pain is currently controlled. Objective - Vital Signs Vital signs: Vital Signs Temp 99.3 F 03/02/17 04:00 Pulse 78 03/02/17 07:42 Resp 18 03/02/17 07:00 BP 118/70 03/02/17 07:00 Pulse Ox 97 03/02/17 07:27 Intake & Output 03/01/17 03/02/17 03/02/17 18:59 06:59 18:59 Intake Total 698 690 20 Output Total 923 727 67 Balance -225 -37 -47 Weight 113 kg Intake: IV 598 440 20 .0 pressure bag 18 ACETAMINOPHEN IV (For NPO 100 100 ) 1,000 mg In Empty Bag 1 bag @ 400 mls/hr IVPB Q6HR [facility] Rx#:[id number] Lactated Ringers 1,000 ml 380 240 20 @ 20 mls/hr IV .Q24H [facility] Rx#:[id number] ceFAZolin 2 gm In Sodium 100 100 Chloride 0.9% 100 ml @ 100 mls/hr IVPB Q8HR [facility] Rx#:[id number] Oral 100 250 Output: Chest Tube Drainage 324 272 52 Chest Tube Left Lateral 74 112 42 Chest Chest Tube Mediastinal 250 160 10 Urine 599 455 15 Other: Voiding Method Indwelling Catheter Indwelling Catheter # Bowel Movements 0 ABP, PAP, CO, CI - Last Documented Arterial Blood Pressure 111/54 Pulmonary Artery Pressure 48/21 Cardiac Output 4.8 Cardiac Index 2.7 - Exam General appearance: no average body habitus, no cooperative, no disheveled, no mild distress, no morbidly obese, no acute distress, obese, no severe distress, no thin - EENT Eyes: no abnormal pupil, no anicteric sclerae, no disc margins sharp, no edentulous, no EOMI, no PERRLA, no fundus normal, no photophobia, no dentition normal, no poor dentition, no ptosis, no scleral icterus, normal appearance Ears: bilateral: normal - Neck Neck: no lymphadenopathy, normal ROM, no other, no rigidity, no stridor, no thyromegaly Carotids: bilateral: upstroke normal Thyroid: bilateral: normal size - Respiratory Respiratory: left: diminished, dullness, rales - Cardiovascular Rhythm: regular Heart sounds: normal: S1, S2 - Gastrointestinal General gastrointestinal: distended, normal bowel sounds, soft - Integumentary Integumentary: no calor, no cellulitis, no cyanotic, no decreased turgor, no flushed, no jaundiced, normal, no normal turgor, no pale, no rash, no ulcer - Neurologic Alert and oriented 3, cranial nerves II through XII grossly intact. - Musculoskeletal Musculoskeletal: strength equal bilaterally - Psychiatric Normal affect. - Labs CBC & Chem 7: 03/02/17 04:45 03/02/17 04:45 Labs: Abnormal Lab Results - Last 24 Hours (Table) 02/28/17 02/28/17 02/28/17 Range/Units 09:33 10:53 11:36 WBC (3.8-10.6) k/uL RBC (4.30-5.90) m/uL Hgb (13.0-17.5) gm/dL Hct (39.0-53.0) % Neutrophils # (1.3-7.7) k/uL ABG pH (7.35-7.45) ABG pO2 >420 H 361 H 208 H (83-108) mmHg ABG Total CO2 25 H (19-24) mmol/L ABG O2 Saturation 100.0 H 99.9 H 99.7 H (94-97) % ABG Sodium 153 H (135-146) mmol/L ABG Potassium 5.7 H (3.4-4.5) mmol/L Glucose (74-99) mg/dL POC Glucose (mg/dL) (75-99) mg/dL Calcium (8.4-10.2) mg/dL Total Protein (6.3-8.2) g/dL Albumin (3.5-5.0) g/dL Arterial Blood Potassium 5.7 H (3.4-4.5) mmol/L 02/28/17 02/28/17 02/28/17 Range/Units 12:03 13:01 14:00 WBC (3.8-10.6) k/uL RBC (4.30-5.90) m/uL Hgb (13.0-17.5) gm/dL Hct (39.0-53.0) % Neutrophils # (1.3-7.7) k/uL ABG pH 7.34 L (7.35-7.45) ABG pO2 207 H 328 H 221 H (83-108) mmHg ABG Total CO2 25 H (19-24) mmol/L ABG O2 Saturation 99.7 H 99.9 H 99.7 H (94-97) % ABG Sodium (135-146) mmol/L ABG Potassium 5.9 H 5.1 H (3.4-4.5) mmol/L Glucose (74-99) mg/dL POC Glucose (mg/dL) (75-99) mg/dL Calcium (8.4-10.2) mg/dL Total Protein (6.3-8.2) g/dL Albumin (3.5-5.0) g/dL Arterial Blood Potassium 5.9 H 5.1 H (3.4-4.5) mmol/L 03/01/17 03/01/17 03/01/17 Range/Units 08:04 08:32 12:02 WBC (3.8-10.6) k/uL RBC (4.30-5.90) m/uL Hgb (13.0-17.5) gm/dL Hct (39.0-53.0) % Neutrophils # (1.3-7.7) k/uL ABG pH (7.35-7.45) ABG pO2 (83-108) mmHg ABG Total CO2 (19-24) mmol/L ABG O2 Saturation (94-97) % ABG Sodium (135-146) mmol/L ABG Potassium (3.4-4.5) mmol/L Glucose (74-99) mg/dL POC Glucose (mg/dL) 131 H 124 H 137 H (75-99) mg/dL Calcium (8.4-10.2) mg/dL Total Protein (6.3-8.2) g/dL Albumin (3.5-5.0) g/dL Arterial Blood Potassium (3.4-4.5) mmol/L 03/01/17 03/01/17 03/02/17 Range/Units 17:20 19:49 04:45 WBC (3.8-10.6) k/uL RBC (4.30-5.90) m/uL Hgb (13.0-17.5) gm/dL Hct (39.0-53.0) % Neutrophils # (1.3-7.7) k/uL ABG pH (7.35-7.45) ABG pO2 (83-108) mmHg ABG Total CO2 (19-24) mmol/L ABG O2 Saturation (94-97) % ABG Sodium (135-146) mmol/L ABG Potassium (3.4-4.5) mmol/L Glucose 116 H (74-99) mg/dL POC Glucose (mg/dL) 118 H 126 H (75-99) mg/dL Calcium 8.1 L (8.4-10.2) mg/dL Total Protein 5.3 L (6.3-8.2) g/dL Albumin 3.3 L (3.5-5.0) g/dL Arterial Blood Potassium (3.4-4.5) mmol/L 03/02/17 03/02/17 Range/Units 04:45 07:42 WBC 14.2 H (3.8-10.6) k/uL RBC 4.01 L (4.30-5.90) m/uL Hgb 12.1 L (13.0-17.5) gm/dL Hct 37.7 L (39.0-53.0) % Neutrophils # 11.7 H (1.3-7.7) k/uL ABG pH (7.35-7.45) ABG pO2 (83-108) mmHg ABG Total CO2 (19-24) mmol/L ABG O2 Saturation (94-97) % ABG Sodium (135-146) mmol/L ABG Potassium (3.4-4.5) mmol/L Glucose (74-99) mg/dL POC Glucose (mg/dL) 109 H (75-99) mg/dL Calcium (8.4-10.2) mg/dL Total Protein (6.3-8.2) g/dL Albumin (3.5-5.0) g/dL Arterial Blood Potassium (3.4-4.5) mmol/L Assessment and Plan Plan: 1 CAD with multiple vessel disease: Patient had CABG stable so far and doing well. 2 post CABG: Patient had 4 vessel stable in the ICU. 3 respiratory failure: Successfully extubated and status post bronchoscopy and removal of mucous plug. 4 hyperglycemia: Continue patient on insulin drip and try to keep his blood sugar below 120. 5 hypertension: Patient was on losartan as an outpatient is currently on hydralazine and beta fabricio will adjust his medication after his ET tube is out. 6 GI prophylaxis: Patient will continue on metoprolol IV. 7 DVT prophylaxis continue Lovenox. CODE STATUS: Full code. Discharge plan: To be determined Impression and plan of care have been directed as dictated by the signing physician. Serenity Peoples nurse practitioner acting as scribe for signing physician.
[2017-03-02] MEDS: ONDANSETRON 4 MG/2 ML VIAL IVP PRN (11:40)
[2017-03-02 13:04] LABS: Glucose,Whole Blood 112 mg/dL (75-99)
--- NOTE | 2017-03-02 13:34 | P.PN ---
Subjective 62-year-old male one of Dr. Sherman patient with past medical history of hypertension who apparently developed to have slight exertional dyspnea with increased fatigue and symptoms patient had EKG did not show any major abnormality. Patient was result came back significantly abnormal. Patient was for 2 Dr. Frias and ended up having heart catheter in 01/28/2017 result were consistent with 3 vessel disease including distal lesion in the LAD along with the RCA. Patient was referred to cardiothoracic and ended up being scheduled for elective CABG. Surgery was done today successfully patient had 4 vessel CABG SOSA to the LAD saphenous to the RCA saphenous to the diagonal and saphenous to the PDA. Patient developed to have mild hypoxia and significant change in chest x-ray after procedure while he is on mechanical ventilation. Dr. Bazan ended up doing bedside bronchoscopy and found large sputum plug was taking out his lung expanded nicely did well. Patient remain on mechanical ventilation currently his oxygen saturation has been good. No arrhythmia or A. fib was found hemodynamically stable on minimum vasopressor. Patient blood sugar still mildly elevated patient is on minimum dose of insulin drip currently. 03/01: Patient has been successfully extubated and is on O2 at 2 L nasal cannula. Blood blood glucose running between 124 and 136 and he is off insulin drip. Hemoglobin is stable at 11.6. He remains with chest tubes in place as well as Mao catheter. His pain is currently controlled. 03/02: Patient remains in the intensive care unit. He has been hemodynamically stable. He states he walked today but did feel lightheaded. He has not passed gas or had a bowel movement. He states his appetite is better today than on clear liquid diet. He is burping a little bit. Plan is for Mao to come out today and possibly both chest tubes. Patient may be transferred over to the selective care unit later today. Patient encouraged to continue increased use of incentive spirometry. Objective - Vital Signs Vital signs: Vital Signs Temp 99.3 F 03/02/17 04:00 Pulse 79 03/02/17 09:00 Resp 22 03/02/17 09:00 BP 118/72 03/02/17 09:00 Pulse Ox 99 03/02/17 09:00 Intake & Output 03/01/17 03/02/17 03/02/17 18:59 06:59 18:59 Intake Total 698 690 60 Output Total 923 727 92 Balance -225 -37 -32 Weight 113 kg Intake: IV 598 440 60 .0 pressure bag 18 ACETAMINOPHEN IV (For NPO 100 100 ) 1,000 mg In Empty Bag 1 bag @ 400 mls/hr IVPB Q6HR [facility] Rx#:[id number] Lactated Ringers 1,000 ml 380 240 60 @ 20 mls/hr IV .Q24H [facility] Rx#:[id number] ceFAZolin 2 gm In Sodium 100 100 Chloride 0.9% 100 ml @ 100 mls/hr IVPB Q8HR [facility] Rx#:[id number] Oral 100 250 Output: Chest Tube Drainage 324 272 62 Chest Tube Left Lateral 74 112 52 Chest Chest Tube Mediastinal 250 160 10 Urine 599 455 30 Other: Voiding Method Indwelling Catheter Indwelling Catheter # Bowel Movements 0 ABP, PAP, CO, CI - Last Documented Arterial Blood Pressure 111/54 Pulmonary Artery Pressure 48/21 Cardiac Output 4.8 Cardiac Index 2.7 - Exam General appearance: no average body habitus, no cooperative, no disheveled, no mild distress, no morbidly obese, no acute distress, obese, no severe distress, no thin - EENT Eyes: no abnormal pupil, no anicteric sclerae, no disc margins sharp, no edentulous, no EOMI, no PERRLA, no fundus normal, no photophobia, no dentition normal, no poor dentition, no ptosis, no scleral icterus, normal appearance Ears: bilateral: normal - Neck Neck: no lymphadenopathy, normal ROM, no other, no rigidity, no stridor, no thyromegaly Carotids: bilateral: upstroke normal Thyroid: bilateral: normal size - Respiratory Respiratory: left: diminished, dullness, rales - Cardiovascular Rhythm: regular Heart sounds: normal: S1, S2 - Gastrointestinal General gastrointestinal: distended, normal bowel sounds, soft - Integumentary Integumentary: no calor, no cellulitis, no cyanotic, no decreased turgor, no flushed, no jaundiced, normal, no normal turgor, no pale, no rash, no ulcer - Neurologic Alert and oriented 3, cranial nerves II through XII grossly intact. - Musculoskeletal Musculoskeletal: strength equal bilaterally - Psychiatric Normal affect. - Labs CBC & Chem 7: 03/02/17 04:45 03/02/17 04:45 Labs: Abnormal Lab Results - Last 24 Hours (Table) 02/28/17 02/28/17 02/28/17 Range/Units 09:33 10:53 11:36 WBC (3.8-10.6) k/uL RBC (4.30-5.90) m/uL Hgb (13.0-17.5) gm/dL Hct (39.0-53.0) % Neutrophils # (1.3-7.7) k/uL ABG pH (7.35-7.45) ABG pO2 >420 H 361 H 208 H (83-108) mmHg ABG Total CO2 25 H (19-24) mmol/L ABG O2 Saturation 100.0 H 99.9 H 99.7 H (94-97) % ABG Sodium 153 H (135-146) mmol/L ABG Potassium 5.7 H (3.4-4.5) mmol/L Glucose (74-99) mg/dL POC Glucose (mg/dL) (75-99) mg/dL Calcium (8.4-10.2) mg/dL Total Protein (6.3-8.2) g/dL Albumin (3.5-5.0) g/dL Arterial Blood Potassium 5.7 H (3.4-4.5) mmol/L 02/28/17 02/28/17 02/28/17 Range/Units 12:03 13:01 14:00 WBC (3.8-10.6) k/uL RBC (4.30-5.90) m/uL Hgb (13.0-17.5) gm/dL Hct (39.0-53.0) % Neutrophils # (1.3-7.7) k/uL ABG pH 7.34 L (7.35-7.45) ABG pO2 207 H 328 H 221 H (83-108) mmHg ABG Total CO2 25 H (19-24) mmol/L ABG O2 Saturation 99.7 H 99.9 H 99.7 H (94-97) % ABG Sodium (135-146) mmol/L ABG Potassium 5.9 H 5.1 H (3.4-4.5) mmol/L Glucose (74-99) mg/dL POC Glucose (mg/dL) (75-99) mg/dL Calcium (8.4-10.2) mg/dL Total Protein (6.3-8.2) g/dL Albumin (3.5-5.0) g/dL Arterial Blood Potassium 5.9 H 5.1 H (3.4-4.5) mmol/L 03/01/17 03/01/17 03/01/17 Range/Units 12:02 17:20 19:49 WBC (3.8-10.6) k/uL RBC (4.30-5.90) m/uL Hgb (13.0-17.5) gm/dL Hct (39.0-53.0) % Neutrophils # (1.3-7.7) k/uL ABG pH (7.35-7.45) ABG pO2 (83-108) mmHg ABG Total CO2 (19-24) mmol/L ABG O2 Saturation (94-97) % ABG Sodium (135-146) mmol/L ABG Potassium (3.4-4.5) mmol/L Glucose (74-99) mg/dL POC Glucose (mg/dL) 137 H 118 H 126 H (75-99) mg/dL Calcium (8.4-10.2) mg/dL Total Protein (6.3-8.2) g/dL Albumin (3.5-5.0) g/dL Arterial Blood Potassium (3.4-4.5) mmol/L 03/02/17 03/02/17 03/02/17 Range/Units 04:45 04:45 07:42 WBC 14.2 H (3.8-10.6) k/uL RBC 4.01 L (4.30-5.90) m/uL Hgb 12.1 L (13.0-17.5) gm/dL Hct 37.7 L (39.0-53.0) % Neutrophils # 11.7 H (1.3-7.7) k/uL ABG pH (7.35-7.45) ABG pO2 (83-108) mmHg ABG Total CO2 (19-24) mmol/L ABG O2 Saturation (94-97) % ABG Sodium (135-146) mmol/L ABG Potassium (3.4-4.5) mmol/L Glucose 116 H (74-99) mg/dL POC Glucose (mg/dL) 109 H (75-99) mg/dL Calcium 8.1 L (8.4-10.2) mg/dL Total Protein 5.3 L (6.3-8.2) g/dL Albumin 3.3 L (3.5-5.0) g/dL Arterial Blood Potassium (3.4-4.5) mmol/L Assessment and Plan Plan: 1 CAD with multiple vessel disease: Patient had CABG stable so far and doing well. 2 post CABG: Patient had 4 vessel stable in the ICU. 3 respiratory failure: Successfully extubated and status post bronchoscopy and removal of mucous plug. 4 hyperglycemia: Continue patient on insulin drip and try to keep his blood sugar below 120. 5 hypertension: Patient was on losartan as an outpatient is currently on hydralazine and beta fabricio will adjust his medication after his ET tube is out. 6 GI prophylaxis: Patient will continue on metoprolol IV. 7 DVT prophylaxis continue Lovenox. CODE STATUS: Full code. Discharge plan: Return home Impression and plan of care have been directed as dictated by the signing physician. Serenity Peoples nurse practitioner acting as scribe for signing physician.
--- NOTE | 2017-03-02 14:22 | PN ---
Mr. Chen is status post aortocoronary bypass surgery. He is doing well. He remains in sinus rhythm, hemodynamically stable. Denies any chest pain. He is doing well with incentive spirometry. Vital signs are stable, S1, S2 heard normally. Lungs reveal improved air entry. Abdomen and lower extremity exam unchanged. Plan is to continue current medications, incentive spirometry, pulmonary toilet , gradual increase in activity and hopefully transfer him to telemetry soon. GER
[2017-03-02 17:41] LABS: Glucose,Whole Blood 92 mg/dL (75-99)
[2017-03-02 20:10] LABS: Glucose,Whole Blood 132 mg/dL (75-99)
[2017-03-02] MEDS: SENNOSIDES-DOCUSATE SODIUM 1 EACH TAB PO SCH (20:18)
[2017-03-02 22:47] LABS: Potassium 3.8 mmol/L (3.5-5.1)
[2017-03-03] MEDS: HEPARIN SODIUM,PORCINE 5,000 UNIT/ML 1 ML VIAL SQ SCH ×3 (00:19→16:32)
[2017-03-03] MEDS: MUPIROCIN 2% OINT 22 GM TUBE NASAL SCH ×3 (00:20→20:37)
[2017-03-03 02:16] LABS: Glucose,Whole Blood 117 mg/dL (75-99)
[2017-03-03 06:29] LABS: Glucose,Whole Blood 122 mg/dL (75-99)
[2017-03-03] MEDS: INSULIN LISPRO (humaLOG) 300 UNIT/3 ML VIAL SQ SCH ×4 (06:30→22:09)
[2017-03-03] MEDS: HYDROcodone/APAP 5-325MG 1 EACH TAB PO PRN ×2 (06:34→20:37)
[2017-03-03] MEDS: PANTOPRAZOLE 40 MG TABLET PO SCH (06:34)
[2017-03-03 06:54] LABS: CH 30.7; CHCM 34.2; HCT 33.3 % (39.0-53.0); HDW 2.94; HGB 11.5 gm/dL (13.0-17.5); MCH 31.3 pg (25.0-35.0); MCHC 34.7 g/dL (31.0-37.0); MCV 90.1 fL (80.0-100.0); Mean Platelet Volume 8.2; RBC 3.69 m/uL (4.30-5.90); RDW 13.1 % (11.5-15.5); WBC 11.4 k/uL (3.8-10.6)
[2017-03-03 07:02] LABS: ALT 36 U/L (21-72); AST 22 U/L (17-59); Alkaline Phosphatase 82 U/L (38-126); Anion Gap 11 mmol/L; Blood Urea Nitrogen 19 mg/dL (9-20); Calcium 8.4 mg/dL (8.4-10.2); Carbon Dioxide 28 mmol/L (22-30); Chloride 99 mmol/L (98-107); Glucose 118 mg/dL (74-99); Non-African American GFR(MDRD) >60 (>60 ml/min/1.73 sqM); Potassium 3.9 mmol/L (3.5-5.1); Sodium 138 mmol/L (137-145); Total Bilirubin 0.8 mg/dL (0.2-1.3); Total Protein 5.5 g/dL (6.3-8.2)
--- NOTE | 2017-03-03 08:12 | P.PN ---
Subjective Principal diagnosis: Anginal equivalent triple-vessel coronary artery disease. Hypertension. POD #3 coronary artery bypass grafting 4 with left internal mammary artery to the left anterior descending artery, reverse saphenous vein graft off the aorta to the diagonal artery, the posterior descending artery and the posterior ventricular branch of the right coronary artery with endoscopic vein harvesting and intraoperative LUIS E. Postoperative right upper lobe atelectasis, and expected outcome of surgery. POD #3 bronchoscopy with removal of a mucous plug. Patient sitting up in bed in no acute distress. Was transferred out of the ICU yesterday. States his pain is controlled. Ambulate in the hallway. Objective - Vital Signs Vital signs: Vital Signs Temp 97.1 F L 03/03/17 04:00 Pulse 89 03/03/17 04:00 Resp 16 03/03/17 04:00 BP 116/63 03/03/17 04:00 Pulse Ox 92 L 03/03/17 04:00 Intake & Output 03/02/17 17 03/03/17 18:59 06:59 18:59 Intake Total 80 0 Output Total 892 500 Balance -812 -500 Weight 113 kg 109.4 kg Intake: IV 80 0 Lactated Ringers 1,000 ml 80 0 @ 20 mls/hr IV .Q24H [facility] Rx#:[id number] Oral 0 Output: Chest Tube Drainage 122 Chest Tube Left Lateral 72 Chest Chest Tube Mediastinal 50 Urine 770 500 Other: Voiding Method Indwelling Catheter Urinal # Voids 0 # Bowel Movements 0 ABP, PAP, CO, CI - Last Documented Arterial Blood Pressure 111/54 Pulmonary Artery Pressure 48/21 Cardiac Output 4.8 Cardiac Index 2.7 - Constitutional General appearance: Present: cooperative, no acute distress - Respiratory Details: Lungs sounds diminished bilaterally. Respirations even, nonlabored. Currently on 2 L nasal cannula with oxygen saturations 93%. Able to achieve 1250 mL on incentive spirometer. - Cardiovascular Details: S1, S2 present. Regular rate and rhythm, normal sinus rhythm on telemetry. Sternum stable. Heart hugger placed patient demonstrating appropriate use. Teds/SCDs present. Ventricular epicardial pacemaker wire present, grounded. - Gastrointestinal Gastrointestinal Comment(s): Abdomen soft, nontender, nondistended. Active bowel sounds 4 quadrants. Tolerating diet. - Genitourinary Genitourinary Comment(s): Voiding clear, yellow urine. - Integumentary Integumentary Comment(s): Anterior chest incision well approximated with Dermabond dressing. Covered with dry intact dressing. Lower extremity EVH site well approximated. - Musculoskeletal Musculoskeletal: Present: gait normal, strength equal bilaterally - Psychiatric Psychiatric: Present: A&O x's 3, appropriate affect, intact judgment & insight - Allied health notes Allied health notes reviewed: nursing - Labs CBC & Chem 7: 03/03/17 06:29 03/03/17 06:29 Labs: Abnormal Lab Results - Last 24 Hours (Table) 03/02/17 03/02/17 03/03/17 Range/Units 13:02 20:08 02:15 WBC (3.8-10.6) k/uL RBC (4.30-5.90) m/uL Hgb (13.0-17.5) gm/dL Hct (39.0-53.0) % Glucose (74-99) mg/dL POC Glucose (mg/dL) 112 H 132 H 117 H (75-99) mg/dL Total Protein (6.3-8.2) g/dL Albumin (3.5-5.0) g/dL 03/03/17 03/03/17 03/03/17 Range/Units 06:24 06:29 06:29 WBC 11.4 H (3.8-10.6) k/uL RBC 3.69 L (4.30-5.90) m/uL Hgb 11.5 L (13.0-17.5) gm/dL Hct 33.3 L (39.0-53.0) % Glucose 118 H (74-99) mg/dL POC Glucose (mg/dL) 122 H (75-99) mg/dL Total Protein 5.5 L (6.3-8.2) g/dL Albumin 3.3 L (3.5-5.0) g/dL - Imaging and Cardiology Chest x-ray: image reviewed Assessment and Plan (1) Coronary artery disease Status: Acute (2) Hypertension Status: Acute (3) Status post bronchoscopy Status: Acute (4) Status post coronary artery bypass graft Status: Acute Plan: 1. Continue aspirin, Lipitor, Plavix, Lopressor. Will maximize beta fabricio therapy as tolerated. 2. Will give Lasix 40 mg IV push every 12 hours 4 doses. Last dose to be given today. 3. Continue to encourage incentive spirometry. 4. Increase activity, ambulate in hallway. Physical therapy to follow. 5. GI/DVT prophylaxis. 6. Will monitor daily labs, x-rays. 7. Diabetic management per primary care service. 8. More recommendations as patient progresses. Discharge planning in progress. Time with Patient: Greater than 30
[2017-03-03 08:13] VITALS: RESP 18
[2017-03-03] MEDS: METOPROLOL TARTRATE 25 MG TAB PO SCH ×2 (08:16→20:37)
[2017-03-03] MEDS: CLOPIDOGREL 75 MG TAB PO SCH (08:16)
[2017-03-03] MEDS: ASPIRIN 325 MG TAB PO SCH (08:16)
[2017-03-03] MEDS: ATORVASTATIN 40 MG TAB PO SCH (08:16)
[2017-03-03] MEDS: IPRATROPIUM-ALBUTEROL 3 ML NEB INHALATION SCH ×4 (08:17→20:17)
--- NOTE | 2017-03-03 08:55 | XR ---
EXAMINATION TYPE: XR chest 2V DATE OF EXAM: 03/03/2017 COMPARISON: 03/02/2017 TECHNIQUE: PA and lateral views submitted. HISTORY: Postop cardiac surgery FINDINGS: Postsurgical changes noted is prominence of the mediastinum greater on the right. Persistent bilatera l infiltrate and small effusion are stable. Could not exclude a small right apical pneumothorax. Previous surgery involving the left shoulder with arthropathy of both shoulders. IMPRESSION: 1. Chest tube removal on the left with no sizable pneumothorax. However, findings are suspicious for a small right apical pneumothorax. 2. Bilateral infiltrate and pleural effusion are stable with stable mediastinal prominence.
[2017-03-03] MEDS: FUROSEMIDE 10 MG/ML 4 ML VIAL IV SCH ×2 (09:26→20:38)
[2017-03-03] MEDS: MAGNESIUM HYDROXIDE 2,400 MG/10 ML CUP PO PRN (10:44)
[2017-03-03 11:21] LABS: Glucose,Whole Blood 114 mg/dL (75-99)
--- NOTE | 2017-03-03 12:06 | P.PN ---
Subjective 62-year-old male one of Dr. Sherman patient with past medical history of hypertension who apparently developed to have slight exertional dyspnea with increased fatigue and symptoms patient had EKG did not show any major abnormality. Patient was result came back significantly abnormal. Patient was for [address] Dr[address] Frias and ended up having heart catheter in 01/28/2017 result were consistent with 3 vessel disease including distal lesion in the LAD along with the RCA. Patient was referred to cardiothoracic and ended up being scheduled for elective CABG. Surgery was done today successfully patient had 4 vessel CABG SOSA to the LAD saphenous to the RCA saphenous to the diagonal and saphenous to the PDA. Patient developed to have mild hypoxia and significant change in chest x-ray after procedure while he is on mechanical ventilation. Dr. Bazan ended up doing bedside bronchoscopy and found large sputum plug was taking out his lung expanded nicely did well. Patient remain on mechanical ventilation currently his oxygen saturation has been good. No arrhythmia or A. fib was found hemodynamically stable on minimum vasopressor. Patient blood sugar still mildly elevated patient is on minimum dose of insulin drip currently. 03/01: Patient has been successfully extubated and is on O2 at 2 L nasal cannula. Blood blood glucose running between 124 and 136 and he is off insulin drip. Hemoglobin is stable at 11.6. He remains with chest tubes in place as well as Mao catheter. His pain is currently controlled. 03/02: Patient remains in the intensive care unit. He has been hemodynamically stable. He states he walked today but did feel lightheaded. He has not passed gas or had a bowel movement. He states his appetite is better today than on clear liquid diet. He is burping a little bit. Plan is for Mao to come out today and possibly both chest tubes. Patient may be transferred over to the selective care unit later today. Patient encouraged to continue increased use of incentive spirometry. 03/03: Patient has been transferred to the selective care unit. He is ambulating in the hallway without difficulty. His pain is controlled. He has been ambulatory without chest pain or shortness of breath. No lightheadedness or dizziness. Chest tubes and Mao catheter are out. Objective - Vital Signs Vital signs: Vital Signs Temp 97.0 F L 03/03/17 08:00 Pulse 84 03/03/17 08:29 Resp 18 03/03/17 08:00 BP 122/67 03/03/17 08:00 Pulse Ox 97 03/03/17 08:00 Intake & Output 03/02/17 03/03/17 03/03/17 18:59 06:59 18:59 Intake Total 80 0 Output Total 892 500 Balance -812 -500 Weight 113 kg 109.4 kg Intake: IV 80 0 Lactated Ringers 1,000 ml 80 0 @ 20 mls/hr IV .Q24H [facility] Rx#:[id number] Oral 0 Output: Chest Tube Drainage 122 Chest Tube Left Lateral 72 Chest Chest Tube Mediastinal 50 Urine 770 500 Other: Voiding Method Indwelling Catheter Urinal # Voids 0 # Bowel Movements 0 ABP, PAP, CO, CI - Last Documented Arterial Blood Pressure 111/54 Pulmonary Artery Pressure 48/21 Cardiac Output 4.8 Cardiac Index 2.7 - Exam General appearance: no average body habitus, no cooperative, no disheveled, no mild distress, no morbidly obese, no acute distress, obese, no severe distress, no thin - EENT Eyes: no abnormal pupil, no anicteric sclerae, no disc margins sharp, no edentulous, no EOMI, no PERRLA, no fundus normal, no photophobia, no dentition normal, no poor dentition, no ptosis, no scleral icterus, normal appearance Ears: bilateral: normal - Neck Neck: no lymphadenopathy, normal ROM, no other, no rigidity, no stridor, no thyromegaly Carotids: bilateral: upstroke normal Thyroid: bilateral: normal size - Respiratory Respiratory: left: diminished, dullness, rales - Cardiovascular Rhythm: regular Heart sounds: normal: S1, S2 - Gastrointestinal General gastrointestinal: distended, normal bowel sounds, soft - Integumentary Integumentary: no calor, no cellulitis, no cyanotic, no decreased turgor, no flushed, no jaundiced, normal, no normal turgor, no pale, no rash, no ulcer - Neurologic Alert and oriented 3, cranial nerves II through XII grossly intact. - Musculoskeletal Musculoskeletal: strength equal bilaterally - Psychiatric Normal affect. - Labs CBC & Chem 7: 03/03/17 06:29 03/03/17 06:29 Labs: Abnormal Lab Results - Last 24 Hours (Table) 03/02/17 03/02/17 03/03/17 Range/Units 13:02 20:08 02:15 WBC (3.8-10.6) k/uL RBC (4.30-5.90) m/uL Hgb (13.0-17.5) gm/dL Hct (39.0-53.0) % Glucose (74-99) mg/dL POC Glucose (mg/dL) 112 H 132 H 117 H (75-99) mg/dL Total Protein (6.3-8.2) g/dL Albumin (3.5-5.0) g/dL 03/03/17 03/03/17 03/03/17 Range/Units 06:24 06:29 06:29 WBC 11.4 H (3.8-10.6) k/uL RBC 3.69 L (4.30-5.90) m/uL Hgb 11.5 L (13.0-17.5) gm/dL Hct 33.3 L (39.0-53.0) % Glucose 118 H (74-99) mg/dL POC Glucose (mg/dL) 122 H (75-99) mg/dL Total Protein 5.5 L (6.3-8.2) g/dL Albumin 3.3 L (3.5-5.0) g/dL Assessment and Plan Plan: 1 CAD with multiple vessel disease: Patient had CABG stable so far and doing well. 2 post CABG: Patient had 4 vessel stable. 3 respiratory failure: Successfully extubated and status post bronchoscopy and removal of mucous plug. 4 hyperglycemia: Off insulin drip. 5 hypertension: Continue losartan and metoprolol. 6 GI prophylaxis: Protonix. 7 DVT prophylaxis continue heparin. CODE STATUS: Full code. Discharge plan: Return home Impression and plan of care have been directed as dictated by the signing physician. Serenity Peoples nurse practitioner acting as scribe for signing physician.
[2017-03-03] MEDS: LOSARTAN 25 MG TAB PO SCH (12:41)
--- NOTE | 2017-03-03 13:20 | P.PN ---
Subjective Principal diagnosis: Coronary artery disease status post coronary artery bypass grafting 62-year-old male patient with multivessel coronary artery disease and an abnormal stress test was having chest pain and further cardiac catheterization showing multivessel coronary artery disease. Patient has a preserved LV function. The patient was taken to the operating room today and he underwent and he had four-vessel bypass surgery including SOSA to LAD. The surgery went fine and following that the patient was brought into the intensive care unit intubated on a mechanical ventilator. At this point in time the patient is on SIMV mode with a rate of 14, tidal volume of 600, FiO2 has been weaned down to 60% with a PEEP of 8. Immediate postoperative chest x-ray showed questionable loculated right upper lobe pneumothorax versus atelectasis of the right upper lobe. Chest x-ray was repeated and after bagging and recruiting maneuvers the abnormality remains unchanged. Based on that, a bedside bronchoscopy was done and limited mucous plug was seen to obstructive the orifice of the right upper lobe. Therapeutic airway suctioning was done. Subsequent chest x-ray showed improvement in the volume status. At this point in time, the patient is on 100 % FiO2 with a PEEP of 8. Hemodynamically his cardiac index of 2.2, pulmonary artery pressure of 46/23, he is on 2 mics of levo fed, 65 mics of the prevent, insulin drip for blood sugar control, Cardizem and nitroglycerin drip were placed on hold as the patient's blood pressure dropped and he is currently on few mics of levo fed as mentioned. Urine output is adequate. The patient is a mediastinal chest tube that showed no evidence of air leak. The patient also has a left pleural chest tube without evidence of air leak and the total amount of output from the pleural chest tube is approximately 350 since he arrived from the operating room. Apparently the output was high initially and improved as arrived to the ICU. On 03/01/2017 the patient is doing extremely well. As mentioned earlier postop the patient developed a right upper lobe atelectasis due to mucous plug that was suctioned out and therapeutic it was suctioning was done in the right upper lobe reexpanded. Following that the patient was gradually weaned off the mechanical ventilator overnight and the patient was extubated at around 1 AM this morning. The patient is doing extremely well. He is on 2 L of oxygen nasal cannula. He is pulling approximately thousand on the incentive spirometer. The left-sided pleural chest tube is draining around 180s since morning and a mediastinal tube has drained around 350. On his chest x-ray there is no evidence of pneumothorax and there is no evidence of any atelectasis. The Elgin-Cornel catheter has been removed. Insulin drip has been stopped and the patient is on sliding scale insulin for blood sugar control. The patient is on no pressors. The patient is maintaining his own blood pressure. Urine output is adequate or than 30 mL an hour. He is awake and alert and communicating. No significant pain. The patient is seen again today 03/02/2017 in follow-up in the intensive care unit. He is currently sitting up in the chair at the bedside. He is awake and alert in no acute distress. His mediastinal and left chest tube remain in place. His chest x-ray is stable with left basilar atelectasis. He is maintaining good O2 saturations in the high 90s on 2 L/m per nasal cannula. He is pulling approximately 1 L on the incentive spirometer. Slightly febrile at 99.3. White count 14.2. Hemodynamically stable. Hemoglobin 12.1. He is on no drips currently. The patient is seen again today 03/03/2017 in follow-up in the selective care unit. He is awake and alert in no acute distress. He denies any worsening shortness of breath, cough or congestion. Surgery reveals suspicion for a very small right apical pneumothorax. There is some bilateral infiltrates with pleural effusions which are stable. He is maintaining good O2 saturations in the mid 90s on 2 L/m per nasal cannula. He is working well with his incentive spirometer and pulling approximately 1 L. Hemoglobin remained stable at 11.5. He has been up ambulating in the hallway without any distress. Objective - Vital Signs Vital signs: Vital Signs Temp 97.0 F L 03/03/17 12:00 Pulse 84 03/03/17 12:20 Resp 18 03/03/17 12:00 BP 139/72 03/03/17 12:07 Pulse Ox 96 03/03/17 12:07 Intake & Output 03/02/17 03/03/17 03/03/17 18:59 06:59 18:59 Intake Total 80 0 120 Output Total 892 500 Balance -812 -500 120 Weight 113 kg 109.4 kg Intake: IV 80 0 Lactated Ringers 1,000 ml 80 0 @ 20 mls/hr IV .Q24H [facility] Rx#:[id number] Oral 0 120 Output: Chest Tube Drainage 122 Chest Tube Left Lateral 72 Chest Chest Tube Mediastinal 50 Urine 770 500 Other: Voiding Method Indwelling Catheter Urinal Urinal # Voids 0 # Bowel Movements 0 ABP, PAP, CO, CI - Last Documented Arterial Blood Pressure 111/54 Pulmonary Artery Pressure 48/21 Cardiac Output 4.8 Cardiac Index 2.7 - Exam Head exam was generally normal. There was no scleral icterus or corneal arcus. Mucous membranes were moist.the patient has a right IJ Cordis in place.Neck was supple and without jugular venous distension, thyromegaly, or carotid bruits. Carotids were easily palpable bilaterally. There was no adenopathy. Lung sounds are diminished bilaterally otherwise clear. Sternal stable clean and intact. Cardiac exam revealed the PMI to be normally situated and sized. The rhythm was regular and no extrasystoles were noted during several minutes of auscultation. The first and second heart sounds were normal and physiologic splitting of the second heart sound was noted. There were no murmurs, rubs, clicks, or gallops.Abdominal exam revealed normal bowel sounds. The abdomen was soft, non-tender, and without masses, organomegaly, or appreciable enlargement of the abdominal aorta. Examination of the extremities revealed easily palpable radial, femoral and pedal pulses. There was no cyanosis, clubbing or edema. - Labs CBC & Chem 7: 03/03/17 06:29 03/03/17 06:29 Labs: Abnormal Lab Results - Last 24 Hours (Table) 03/02/17 03/03/17 03/03/17 Range/Units 20:08 02:15 06:24 WBC (3.8-10.6) k/uL RBC (4.30-5.90) m/uL Hgb (13.0-17.5) gm/dL Hct (39.0-53.0) % Glucose (74-99) mg/dL POC Glucose (mg/dL) 132 H 117 H 122 H (75-99) mg/dL Total Protein (6.3-8.2) g/dL Albumin (3.5-5.0) g/dL 03/03/17 03/03/17 03/03/17 Range/Units 06:29 06:29 11:19 WBC 11.4 H (3.8-10.6) k/uL RBC 3.69 L (4.30-5.90) m/uL Hgb 11.5 L (13.0-17.5) gm/dL Hct 33.3 L (39.0-53.0) % Glucose 118 H (74-99) mg/dL POC Glucose (mg/dL) 114 H (75-99) mg/dL Total Protein 5.5 L (6.3-8.2) g/dL Albumin 3.3 L (3.5-5.0) g/dL Assessment and Plan Plan: Assessment 1 multivessel coronary artery disease, status post four-vessel bypass surgery including SOSA to LAD. Patient is postop day #3 2 post thoracotomy, currently extubated on 2 liters of oxygen nasal cannula 3 right upper lobe atelectasis status post bronchoscopy and therapeutic airway suctioning of a tiny mucous plug with expression of the right upper lobe 4 postop to hypotension , brief, an expected outcome of cardiac surgery, recovered and the patient is currently on no pressors. 5 obstructive sleep apnea, history of 6 hyperlipidemia, history of 7 hypertension, history of Plan: The patient was seen and evaluated by Dr. Bazan. His chest x-ray and labs were reviewed. There may be a very small right apical pneumothorax. We will increase the patient's activity as tolerated. He is again encouraged regarding the increased use of the incentive spirometer and cough and deep breathing exercises. Continue bronchodilators. Repeat chest x-ray in the a.m. We will continue to follow.
--- NOTE | 2017-03-03 14:45 | PN ---
This gentleman is status post bypass surgery, doing remarkably well. Remains in sinus rhythm, hemodynamically stable, doing well with incentive spirometry. Vital signs are stable, S1, S2 heard normally. Lungs are clear. Abdomen and lower extremity exam unchanged. Plan is to continue incentive spirometry, pulmonary toilet and possible discharge soon. GER
[2017-03-03 16:55] LABS: Glucose,Whole Blood 109 mg/dL (75-99)
[2017-03-03] MEDS: SENNOSIDES-DOCUSATE SODIUM 1 EACH TAB PO SCH (20:37)
[2017-03-03 20:52] LABS: Glucose,Whole Blood 137 mg/dL (75-99)
[2017-03-04] MEDS: HEPARIN SODIUM,PORCINE 5,000 UNIT/ML 1 ML VIAL SQ SCH ×2 (00:30→07:50)
[2017-03-04 02:10] LABS: Glucose,Whole Blood 109 mg/dL (75-99)
[2017-03-04 06:08] LABS: Glucose,Whole Blood 117 mg/dL (75-99)
[2017-03-04] MEDS: INSULIN LISPRO (humaLOG) 300 UNIT/3 ML VIAL SQ SCH (06:19)
[2017-03-04] MEDS: PANTOPRAZOLE 40 MG TABLET PO SCH (06:24)
[2017-03-04 07:02] LABS: CH 31.3; CHCM 33.5; HCT 35.7 % (39.0-53.0); HDW 2.89; HGB 12.1 gm/dL (13.0-17.5); MCH 31.9 pg (25.0-35.0); MCV 93.9 fL (80.0-100.0); Mean Platelet Volume 8.5; RBC 3.81 m/uL (4.30-5.90); RDW 13.8 % (11.5-15.5); WBC 11.1 k/uL (3.8-10.6)
[2017-03-04 07:22] LABS: ALT 46 U/L (21-72); AST 33 U/L (17-59); Alkaline Phosphatase 84 U/L (38-126); Anion Gap 10 mmol/L; Blood Urea Nitrogen 22 mg/dL (9-20); Calcium 8.5 mg/dL (8.4-10.2); Carbon Dioxide 32 mmol/L (22-30); Chloride 98 mmol/L (98-107); Glucose 100 mg/dL (74-99); Non-African American GFR(MDRD) >60 (>60 ml/min/1.73 sqM); Potassium 3.8 mmol/L (3.5-5.1); Sodium 140 mmol/L (137-145); Total Bilirubin 0.8 mg/dL (0.2-1.3)
[2017-03-04] MEDS ORDERED: POTASSIUM CHLORIDE ER 20 MEQ TAB.ER PO STA (07:47)
[2017-03-04] MEDS: HYDROcodone/APAP 5-325MG 1 EACH TAB PO PRN ×2 (07:49→13:53)
[2017-03-04] MEDS: METOPROLOL TARTRATE 25 MG TAB PO SCH (07:50)
[2017-03-04] MEDS: CLOPIDOGREL 75 MG TAB PO SCH (07:50)
[2017-03-04] MEDS: ATORVASTATIN 40 MG TAB PO SCH (07:50)
[2017-03-04] MEDS: ASPIRIN 325 MG TAB PO SCH (07:50)
[2017-03-04] MEDS: MUPIROCIN 2% OINT 22 GM TUBE NASAL SCH (07:51)
[2017-03-04 08:05] VITALS: TEMP 97
[2017-03-04] MEDS: IPRATROPIUM-ALBUTEROL 3 ML NEB INHALATION SCH ×2 (08:15→11:17)
--- NOTE | 2017-03-04 08:32 | XR ---
EXAMINATION TYPE: XR chest 2V DATE OF EXAM: 03/04/2017 COMPARISON: 03/03/2017 TECHNIQUE: PA and lateral views submitted. HISTORY: Post cardiac surgery FINDINGS: There is a stable 15 % right apical pneumothorax with bilateral small effusion and basilar infiltrate . Heart is enlarged and there is prominence of the hilum bilaterally. Upper mediastinal prominence is stable. Postsurgical changes seen. IMPRESSION: 1. Bilateral lower lobe infiltrate and small effusion with stable 15 % right apical pneumothorax. 2. Persistent mediastinal widening. Correlate with CT as clinically warranted.
--- NOTE | 2017-03-04 08:33 | P.PN ---
<Zoraida Rosas - Last Filed: 03/04/17 08:26> Subjective Principal diagnosis: Anginal equivalent triple-vessel coronary artery disease. Hypertension. POD #4 coronary artery bypass grafting 4 with left internal mammary artery to the left anterior descending artery, reverse saphenous vein graft off the aorta to the diagonal artery, the posterior descending artery and the posterior ventricular branch of the right coronary artery with endoscopic vein harvesting and intraoperative LUIS E. Postoperative right upper lobe atelectasis, and expected outcome of surgery. POD #4 bronchoscopy with removal of a mucous plug. Patient sitting up in bed in no acute distress. States he is feeling good and is ready to go home. Denies pain, shortness of breath. Ambulating in the hallway. Objective - Vital Signs Vital signs: Vital Signs Temp 97.0 F L 03/04/17 07:58 Pulse 85 03/04/17 08:26 Resp 18 03/04/17 07:58 BP 109/67 03/04/17 07:58 Pulse Ox 94 L 03/04/17 08:16 Intake & Output 03/03/17 03/04/17 03/04/17 18:59 06:59 18:59 Intake Total 480 Balance 480 Weight 108.5 kg Intake: Oral 480 Other: Voiding Method Urinal ABP, PAP, CO, CI - Last Documented Arterial Blood Pressure 111/54 Pulmonary Artery Pressure 48/21 Cardiac Output 4.8 Cardiac Index 2.7 - Constitutional General appearance: Present: cooperative, no acute distress - Respiratory Details: Lungs sounds diminished bilaterally. Respirations even, nonlabored. Currently on room air with oxygen saturation 94%. Able to achieve 1500 mL on his incentive spirometry. - Cardiovascular Details: S1, S2 present. Regular rate and rhythm, normal sinus rhythm on telemetry. No edema present. Sternum stable. Heart hugger in place with patient demonstrating appropriate use. Teds/SCDs present. Ventricular epicardial pacemaker wire discontinued yesterday, patient tolerated well. - Gastrointestinal Gastrointestinal Comment(s): Abdomen soft, nontender, nondistended. Active bowel sounds 4 quadrants. Tolerating diet. No bowel movement yet. - Genitourinary Genitourinary Comment(s): Continues to void clear, yellow urine. No documentation of urine output in the computer, however patient states he is walking to the toilet to avoid. - Integumentary Integumentary Comment(s): Anterior chest incision well approximated with Dermabond dressing. No redness, drainage noted. - Musculoskeletal Musculoskeletal: Present: gait normal, strength equal bilaterally - Psychiatric Psychiatric: Present: A&O x's 3, appropriate affect, intact judgment & insight - Allied health notes Allied health notes reviewed: nursing - Labs CBC & Chem 7: 03/04/17 06:36 03/04/17 06:36 Labs: Abnormal Lab Results - Last 24 Hours (Table) 03/03/17 03/03/17 03/03/17 Range/Units 11:19 16:49 20:50 WBC (3.8-10.6) k/uL RBC (4.30-5.90) m/uL Hgb (13.0-17.5) gm/dL Hct (39.0-53.0) % Carbon Dioxide (22-30) mmol/L BUN (9-20) mg/dL Glucose (74-99) mg/dL POC Glucose (mg/dL) 114 H 109 H 137 H (75-99) mg/dL Total Protein (6.3-8.2) g/dL 03/04/17 03/04/17 03/04/17 Range/Units 02:08 06:06 06:36 WBC 11.1 H (3.8-10.6) k/uL RBC 3.81 L (4.30-5.90) m/uL Hgb 12.1 L (13.0-17.5) gm/dL Hct 35.7 L (39.0-53.0) % Carbon Dioxide (22-30) mmol/L BUN (9-20) mg/dL Glucose (74-99) mg/dL POC Glucose (mg/dL) 109 H 117 H (75-99) mg/dL Total Protein (6.3-8.2) g/dL 03/04/17 Range/Units 06:36 WBC (3.8-10.6) k/uL RBC (4.30-5.90) m/uL Hgb (13.0-17.5) gm/dL Hct (39.0-53.0) % Carbon Dioxide 32 H (22-30) mmol/L BUN 22 H (9-20) mg/dL Glucose 100 H (74-99) mg/dL POC Glucose (mg/dL) (75-99) mg/dL Total Protein 6.0 L (6.3-8.2) g/dL - Imaging and Cardiology Chest x-ray: image reviewed Assessment and Plan (1) Coronary artery disease Status: Acute (2) Hypertension Status: Acute (3) Status post bronchoscopy Status: Acute (4) Status post coronary artery bypass graft Status: Acute Plan: 1. Continue aspirin, Lipitor, Plavix, Lopressor. Will maximize beta fabricio therapy as tolerated. 2. Continue to encourage incentive spirometry. 3. Increase activity, ambulate in hallway. Physical therapy to follow. 4. GI/DVT prophylaxis. 5. Diabetic management per primary care service. 6. Likely will discharge to home with home care today. Time with Patient: Greater than 30 <Epi Peter - Last Filed: 03/04/17 15:57> Objective - Vital Signs Vital signs: Vital Signs Temp 97.0 F L 03/04/17 07:58 Pulse 87 03/04/17 11:25 Resp 18 03/04/17 07:58 BP 118/69 03/04/17 08:41 Pulse Ox 96 03/04/17 08:41 Intake & Output 03/03/17 03/04/17 03/04/17 18:59 06:59 18:59 Intake Total 480 120 Output Total 350 Balance 480 -230 Weight 108.5 kg Intake: Oral 480 120 Output: Urine 350 Other: Voiding Method Urinal # Voids 1 ABP, PAP, CO, CI - Last Documented Arterial Blood Pressure 111/54 Pulmonary Artery Pressure 48/21 Cardiac Output 4.8 Cardiac Index 2.7 - Labs CBC & Chem 7: 03/04/17 06:36 03/04/17 06:36 Labs: Abnormal Lab Results - Last 24 Hours (Table) 03/03/17 03/03/17 03/04/17 Range/Units 16:49 20:50 02:08 WBC (3.8-10.6) k/uL RBC (4.30-5.90) m/uL Hgb (13.0-17.5) gm/dL Hct (39.0-53.0) % Carbon Dioxide (22-30) mmol/L BUN (9-20) mg/dL Glucose (74-99) mg/dL POC Glucose (mg/dL) 109 H 137 H 109 H (75-99) mg/dL Total Protein (6.3-8.2) g/dL 03/04/17 03/04/17 03/04/17 Range/Units 06:06 06:36 06:36 WBC 11.1 H (3.8-10.6) k/uL RBC 3.81 L (4.30-5.90) m/uL Hgb 12.1 L (13.0-17.5) gm/dL Hct 35.7 L (39.0-53.0) % Carbon Dioxide 32 H (22-30) mmol/L BUN 22 H (9-20) mg/dL Glucose 100 H (74-99) mg/dL POC Glucose (mg/dL) 117 H (75-99) mg/dL Total Protein 6.0 L (6.3-8.2) g/dL 03/04/17 Range/Units 11:55 WBC (3.8-10.6) k/uL RBC (4.30-5.90) m/uL Hgb (13.0-17.5) gm/dL Hct (39.0-53.0) % Carbon Dioxide (22-30) mmol/L BUN (9-20) mg/dL Glucose (74-99) mg/dL POC Glucose (mg/dL) 106 H (75-99) mg/dL Total Protein (6.3-8.2) g/dL Assessment and Plan Plan: Patient was seen and examined. I agree with the above assessment and plan. Overall he looks good. He has been ambulating without difficulty on room air. His laboratory studies were reviewed. He was given medication to assist with a bowel movement. He will likely be discharged home later today.
[2017-03-04 08:41] VITALS: BP 118/69
[2017-03-04] MEDS: MAGNESIUM HYDROXIDE 2,400 MG/10 ML CUP PO PRN (09:17)
[2017-03-04 11:27] VITALS: PULSE 87
--- NOTE | 2017-03-04 11:44 | P.PN ---
Subjective 62-year-old male one of Dr. Sherman patient with past medical history of hypertension who apparently developed to have slight exertional dyspnea with increased fatigue and symptoms patient had EKG did not show any major abnormality. Patient was result came back significantly abnormal. Patient was for 2 Dr. Frias and ended up having heart catheter in 01/28/2017 result were consistent with 3 vessel disease including distal lesion in the LAD along with the RCA. Patient was referred to cardiothoracic and ended up being scheduled for elective CABG. Surgery was done today successfully patient had 4 vessel CABG SOSA to the LAD saphenous to the RCA saphenous to the diagonal and saphenous to the PDA. Patient developed to have mild hypoxia and significant change in chest x-ray after procedure while he is on mechanical ventilation. Dr. Bazan ended up doing bedside bronchoscopy and found large sputum plug was taking out his lung expanded nicely did well. Patient remain on mechanical ventilation currently his oxygen saturation has been good. No arrhythmia or A. fib was found hemodynamically stable on minimum vasopressor. Patient blood sugar still mildly elevated patient is on minimum dose of insulin drip currently. 03/01: Patient has been successfully extubated and is on O2 at 2 L nasal cannula. Blood blood glucose running between 124 and 136 and he is off insulin drip. Hemoglobin is stable at 11.6. He remains with chest tubes in place as well as Mao catheter. His pain is currently controlled. 03/02: Patient remains in the intensive care unit. He has been hemodynamically stable. He states he walked today but did feel lightheaded. He has not passed gas or had a bowel movement. He states his appetite is better today than on clear liquid diet. He is burping a little bit. Plan is for Mao to come out today and possibly both chest tubes. Patient may be transferred over to the selective care unit later today. Patient encouraged to continue increased use of incentive spirometry. 03/03: Patient has been transferred to the selective care unit. He is ambulating in the hallway without difficulty. His pain is controlled. He has been ambulatory without chest pain or shortness of breath. No lightheadedness or dizziness. Chest tubes and Mao catheter are out. 03/04: Patient has been hemodynamically stable. His pulse ox is running 90-94% on room air. Incentive spirometry is up to 1500 MLS. Blood sugars are running between 100 and 137. Patient is planning to return home with [facility] in place. Possible discharge home later today. Objective - Vital Signs Vital signs: Vital Signs Temp 97.6 F 03/04/17 04:00 Pulse 80 03/04/17 04:00 Resp 18 03/04/17 04:00 BP 130/67 03/04/17 04:00 Pulse Ox 94 L 03/04/17 04:00 Intake & Output 03/03/17 03/04/17 03/04/17 18:59 06:59 18:59 Intake Total 480 Balance 480 Weight 108.5 kg Intake: Oral 480 Other: Voiding Method Urinal ABP, PAP, CO, CI - Last Documented Arterial Blood Pressure 111/54 Pulmonary Artery Pressure 48/21 Cardiac Output 4.8 Cardiac Index 2.7 - Exam General appearance: no average body habitus, no cooperative, no disheveled, no mild distress, no morbidly obese, no acute distress, obese, no severe distress, no thin - EENT Eyes: no abnormal pupil, no anicteric sclerae, no disc margins sharp, no edentulous, no EOMI, no PERRLA, no fundus normal, no photophobia, no dentition normal, no poor dentition, no ptosis, no scleral icterus, normal appearance Ears: bilateral: normal - Neck Neck: no lymphadenopathy, normal ROM, no other, no rigidity, no stridor, no thyromegaly Carotids: bilateral: upstroke normal Thyroid: bilateral: normal size - Respiratory Respiratory: left: diminished, dullness, rales - Cardiovascular Rhythm: regular Heart sounds: normal: S1, S2 - Gastrointestinal General gastrointestinal: distended, normal bowel sounds, soft - Integumentary Integumentary: no calor, no cellulitis, no cyanotic, no decreased turgor, no flushed, no jaundiced, normal, no normal turgor, no pale, no rash, no ulcer - Neurologic Alert and oriented 3, cranial nerves II through XII grossly intact. - Musculoskeletal Musculoskeletal: strength equal bilaterally - Psychiatric Normal affect. - Labs CBC & Chem 7: 03/04/17 06:36 03/04/17 06:36 Labs: Abnormal Lab Results - Last 24 Hours (Table) 03/03/17 03/03/17 03/03/17 Range/Units 11:19 16:49 20:50 WBC (3.8-10.6) k/uL RBC (4.30-5.90) m/uL Hgb (13.0-17.5) gm/dL Hct (39.0-53.0) % Carbon Dioxide (22-30) mmol/L BUN (9-20) mg/dL Glucose (74-99) mg/dL POC Glucose (mg/dL) 114 H 109 H 137 H (75-99) mg/dL Total Protein (6.3-8.2) g/dL 03/04/17 03/04/17 03/04/17 Range/Units 02:08 06:06 06:36 WBC 11.1 H (3.8-10.6) k/uL RBC 3.81 L (4.30-5.90) m/uL Hgb 12.1 L (13.0-17.5) gm/dL Hct 35.7 L (39.0-53.0) % Carbon Dioxide (22-30) mmol/L BUN (9-20) mg/dL Glucose (74-99) mg/dL POC Glucose (mg/dL) 109 H 117 H (75-99) mg/dL Total Protein (6.3-8.2) g/dL 03/04/17 Range/Units 06:36 WBC (3.8-10.6) k/uL RBC (4.30-5.90) m/uL Hgb (13.0-17.5) gm/dL Hct (39.0-53.0) % Carbon Dioxide 32 H (22-30) mmol/L BUN 22 H (9-20) mg/dL Glucose 100 H (74-99) mg/dL POC Glucose (mg/dL) (75-99) mg/dL Total Protein 6.0 L (6.3-8.2) g/dL Assessment and Plan Plan: 1 CAD with multiple vessel disease: Patient had CABG stable so far and doing well. 2 post CABG: Patient had 4 vessel stable. 3 respiratory failure: Successfully extubated and status post bronchoscopy and removal of mucous plug. 4 hyperglycemia: Off insulin drip. 5 hypertension: Continue losartan and metoprolol. 6 GI prophylaxis: Protonix. 7 DVT prophylaxis continue heparin. CODE STATUS: Full code. Discharge plan: Return home with [facility] Impression and plan of care have been directed as dictated by the signing physician. Serenity Peoples nurse practitioner acting as scribe for signing physician. Cc: Dr. Valdo Orourke
[2017-03-04 12:07] LABS: Glucose,Whole Blood 106 mg/dL (75-99)
--- NOTE | 2017-03-04 12:49 | P.PN ---
Subjective Coronary artery disease status post coronary artery bypass grafting 62-year-old male patient with multivessel coronary artery disease and an abnormal stress test was having chest pain and further cardiac catheterization showing multivessel coronary artery disease. Patient has a preserved LV function. The patient was taken to the operating room today and he underwent and he had four-vessel bypass surgery including SOSA to LAD. The surgery went fine and following that the patient was brought into the intensive care unit intubated on a mechanical ventilator. At this point in time the patient is on SIMV mode with a rate of 14, tidal volume of 600, FiO2 has been weaned down to 60% with a PEEP of 8. Immediate postoperative chest x-ray showed questionable loculated right upper lobe pneumothorax versus atelectasis of the right upper lobe. Chest x-ray was repeated and after bagging and recruiting maneuvers the abnormality remains unchanged. Based on that, a bedside bronchoscopy was done and limited mucous plug was seen to obstructive the orifice of the right upper lobe. Therapeutic airway suctioning was done. Subsequent chest x-ray showed improvement in the volume status. At this point in time, the patient is on 100 % FiO2 with a PEEP of 8. Hemodynamically his cardiac index of 2.2, pulmonary artery pressure of 46/23, he is on 2 mics of levo fed, 65 mics of the prevent, insulin drip for blood sugar control, Cardizem and nitroglycerin drip were placed on hold as the patient's blood pressure dropped and he is currently on few mics of levo fed as mentioned. Urine output is adequate. The patient is a mediastinal chest tube that showed no evidence of air leak. The patient also has a left pleural chest tube without evidence of air leak and the total amount of output from the pleural chest tube is approximately 350 since he arrived from the operating room. Apparently the output was high initially and improved as arrived to the ICU. On 03/01/2017 the patient is doing extremely well. As mentioned earlier postop the patient developed a right upper lobe atelectasis due to mucous plug that was suctioned out and therapeutic it was suctioning was done in the right upper lobe reexpanded. Following that the patient was gradually weaned off the mechanical ventilator overnight and the patient was extubated at around 1 AM this morning. The patient is doing extremely well. He is on 2 L of oxygen nasal cannula. He is pulling approximately thousand on the incentive spirometer. The left-sided pleural chest tube is draining around 180s since morning and a mediastinal tube has drained around 350. On his chest x-ray there is no evidence of pneumothorax and there is no evidence of any atelectasis. The [place] catheter has been removed. Insulin drip has been stopped and the patient is on sliding scale insulin for blood sugar control. The patient is on no pressors. The patient is maintaining his own blood pressure. Urine output is adequate or than 30 mL an hour. He is awake and alert and communicating. No significant pain. The patient is seen again today 03/02/2017 in follow-up in the intensive care unit. He is currently sitting up in the chair at the bedside. He is awake and alert in no acute distress. His mediastinal and left chest tube remain in place. His chest x-ray is stable with left basilar atelectasis. He is maintaining good O2 saturations in the high 90s on 2 L/m per nasal cannula. He is pulling approximately 1 L on the incentive spirometer. Slightly febrile at 99.3. White count 14.2. Hemodynamically stable. Hemoglobin 12.1. He is on no drips currently. The patient is seen again today 03/03/2017 in follow-up in the selective care unit. He is awake and alert in no acute distress. He denies any worsening shortness of breath, cough or congestion. Surgery reveals suspicion for a very small right apical pneumothorax. There is some bilateral infiltrates with pleural effusions which are stable. He is maintaining good O2 saturations in the mid 90s on 2 L/m per nasal cannula. He is working well with his incentive spirometer and pulling approximately 1 L. Hemoglobin remained stable at 11.5. He has been up ambulating in the hallway without any distress. On 03/04/2017 the patient is ambulating. The patient on no oxygen. Chest x- ray showing a tiny right apical pneumothorax. Hemodynamics stable. Sternal wound is dry clean and intact. Using incentive spirometer. Hemoglobin is at 12.1. Electrodes are within normal. No other cardiac arrhythmias have been noted. Objective - Vital Signs Vital signs: Vital Signs Temp 97.0 F L 03/04/17 07:58 Pulse 87 03/04/17 11:25 Resp 18 03/04/17 07:58 BP 118/69 03/04/17 08:41 Pulse Ox 96 03/04/17 08:41 Intake & Output 03/03/17 03/04/17 03/04/17 18:59 06:59 18:59 Intake Total 480 120 Output Total 350 Balance 480 -230 Weight 108.5 kg Intake: Oral 480 120 Output: Urine 350 Other: Voiding Method Urinal # Voids 1 ABP, PAP, CO, CI - Last Documented Arterial Blood Pressure 111/54 Pulmonary Artery Pressure 48/21 Cardiac Output 4.8 Cardiac Index 2.7 - Exam Head exam was generally normal. There was no scleral icterus or corneal arcus. Mucous membranes were moist.Neck was supple and without jugular venous distension, thyromegaly, or carotid bruits. Carotids were easily palpable bilaterally. There was no adenopathy. Lung sounds are diminished bilaterally otherwise clear. There is adequate and symmetrical air entry bilaterally. Heart sounds are regular, positive S1-S2. Sternum stable clean and intact. Regular.Abdominal exam revealed normal bowel sounds. The abdomen was soft, non- tender, and without masses, organomegaly, or appreciable enlargement of the abdominal aorta.Examination of the extremities revealed easily palpable radial, femoral and pedal pulses. There was no cyanosis, clubbing or edema. Surgical wound site over the left inner thigh is clean and dry and intact. No drainage. No cellulitis. - Labs CBC & Chem 7: 03/04/17 06:36 03/04/17 06:36 Labs: Abnormal Lab Results - Last 24 Hours (Table) 03/03/17 03/03/17 03/04/17 Range/Units 16:49 20:50 02:08 WBC (3.8-10.6) k/uL RBC (4.30-5.90) m/uL Hgb (13.0-17.5) gm/dL Hct (39.0-53.0) % Carbon Dioxide (22-30) mmol/L BUN (9-20) mg/dL Glucose (74-99) mg/dL POC Glucose (mg/dL) 109 H 137 H 109 H (75-99) mg/dL Total Protein (6.3-8.2) g/dL 03/04/17 03/04/17 03/04/17 Range/Units 06:06 06:36 06:36 WBC 11.1 H (3.8-10.6) k/uL RBC 3.81 L (4.30-5.90) m/uL Hgb 12.1 L (13.0-17.5) gm/dL Hct 35.7 L (39.0-53.0) % Carbon Dioxide 32 H (22-30) mmol/L BUN 22 H (9-20) mg/dL Glucose 100 H (74-99) mg/dL POC Glucose (mg/dL) 117 H (75-99) mg/dL Total Protein 6.0 L (6.3-8.2) g/dL 03/04/17 Range/Units 11:55 WBC (3.8-10.6) k/uL RBC (4.30-5.90) m/uL Hgb (13.0-17.5) gm/dL Hct (39.0-53.0) % Carbon Dioxide (22-30) mmol/L BUN (9-20) mg/dL Glucose (74-99) mg/dL POC Glucose (mg/dL) 106 H (75-99) mg/dL Total Protein (6.3-8.2) g/dL Assessment and Plan Plan: Assessment 1 multivessel coronary artery disease, status post four-vessel bypass surgery including SOSA to LAD. Patient is postop day #4 2 post thoracotomy, currently extubated on few liters of oxygen nasal cannula 3 right upper lobe atelectasis status post bronchoscopy and therapeutic airway suctioning of a tiny mucous plug with expression of the right upper lobe 4 postop to hypotension , brief, an expected outcome of cardiac surgery, recovered and the patient is currently on no pressors. 5 obstructive sleep apnea, history of 6 hyperlipidemia, history of 7 hypertension, history of 8 tiny apical pneumothorax less than 5% on the right. Plan Patient is doing extremely well. Follow-up chest x-ray on outpatient basis. Discharge per CT surgery. Stable for now. Ambulating. Continues incentive spirometer.
[2017-03-04] MEDS: LOSARTAN 25 MG TAB PO SCH (13:53)
--- NOTE | 2017-03-04 14:14 | P.DS ---
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 Anginal equivalent triple-vessel coronary artery disease 2. Hypertension 3. Postoperative right upper lobe atelectasis, and expected outcome of surgery PRINCIPAL PROCEDURE: 1. Elective coronary artery bypass grafting 4 vessels with left internal mammary artery to the left anterior descending artery, reverse saphenous vein graft off the aorta to the diagonal artery, the posterior descending artery and the posterior ventricular branch of the right coronary artery 2. Endoscopic vein harvesting intraoperative transesophageal echocardiogram 3. Intraoperative transesophageal echocardiogram 4. Bronchoscopy with removal of a mucous plug HISTORY OF PRESENT ILLNESS: This 62-year-old gentleman had presented to cardiology office for a stress test after his primary care physician noted he had exertional dyspnea and increased fatigue. He denied any chest pain or discomfort and his EKG demonstrated sinus rhythm without any ischemic changes. The stress test was abnormal and Dr. Bird recommended heart catheterization. The catheterization was performed on 01/28/2017, which demonstrated tubular lesion of 70% in the mid RCA, the distal RCA at the bifurcation into the PDA and PLV branches with a lesion of 80%, and ostial left circumflex with a lesion of 70%, ramus intermedius with an ostial lesion of 50%, chronic proximal LAD at the bifurcation of the diagonal branch with a tubular lesion of 50%, a large diagonal branch with a long tubular lesion of 80-90% and a mid to distal LAD after that second diagonal to have a lesion of 80-90%. Due to these findings the patient was referred to Dr. Gonzalez for surgical revascularization. Dr. Gonzalez reviewed the catheterization films and did recommend surgical revascularization to the patient and family. All risks and benefits were explained and the patient agreed to proceed with surgery. HOSPITAL COURSE: Patient was brought to the hospital on 02/28/2017, taken to the preoperative area, prepared in the usual fashion, and subsequently taken to the operating room where Dr. Gonzalez performed an elective coronary artery bypass grafting 4 vessels with the left internal mammary artery to the left anterior descending artery, reverse saphenous vein graft off the aorta to the diagonal artery, the posterior descending artery and the posterior ventricular branch of the right coronary artery with endoscopic vein harvesting and intraoperative transesophageal echocardiogram. Upon completion of surgery the patient was transferred to the cardiovascular intensive care unit where he was recovered, monitored hemodynamically, and where he progressed to cardiac rehabilitation phase 1. He was extubated, all lines, tubes, and drips were discontinued when appropriate, and he was transferred to [address] [place] [address] for further monitoring and rehabilitation. His oxygen was titrated down, he continued to work with physical therapy, and was ready to be discharged home on postoperative day #4 with [facility] to follow. He received written and verbal instruction regarding his medications, activity restrictions, signs and symptoms requiring physician notification, and follow-up appointments. COMPLICATIONS: The patient postoperative complications. DISCHARGE INSTRUCTIONS: 1. No driving for 4 weeks, or until physician gives their ok. 2. The patient should sleep in their own bed, no medical bed needed. 3. Stairs are not an issue. If the bedroom is upstairs, it is advised that the patient go up at night and down in the morning for the first week. Go slowly, using handrail and take 1 step at a time. 4. FAISAL hose are to be worn for 30 days or until physician discontinues. 5. Heart hugger is to be worn 100% of the time until physician discontinues.( except when showering) 6. No lifting, pushing, or pulling more than 10 pounds for 12 weeks. The physician will advise of any restriction changes. 7. The patient is expected to continue the prescribed walking program. 8. Continue pain control per as needed orders. 9. Continue with incentive spirometry and splinting/heart hugger until otherwise directed by the physician. 10. Must shower daily using liquid antibacterial soap and a separate white washcloth for each individual incision. 11. Routine sternal incision care. No powders, lotions, ointments on incisions. 12. Please call surgeon/CHILD NUTRITION DIRECTOR for temp greater than 101 F or purulent drainage from incisions. 13. All prescriptions given by surgeon for 30 days. Refills need to be filled through transfer table operator/primary care physician. HOME HEALTH SERVICES TO PROVIDE: RN SKILLED HOME CARE SERVICES FOR POST-OP SURGICAL PATIENTS WITH THE FOLLOWING: Coronary Artery Bypass Surgery (CABG), Mitral Valve Replacement/ Repair ( MVR), Aortic Valve Replacement/Repair (AVR) RN TO CONTINUE EDUCATION FROM ``ROAD TO A HEALTH HEART PATIENT EDUCATION MANUAL (GIVEN TO PATIENT IN THE HOSPITAL) MEDICATION RECONCILIATION WITH EDUCATION NEEDED ON FIRST HOME VISIT EMPHASIZE IMPORTANCE OF WEARING BREAST SUPPORT/HEART HUGGER ENCOURAGE USE OF INCENTIVE SPIROMETER 10 X EVERY HOUR WHILE AWAKE ENCOURAGE UTILIZATION OF LOWER EXTREMITY COMPRESSION STOCKINGS/FAISAL HOSE and ELEVATE LEGS ABOVE LEVEL OF HEART WHILE AT REST. ENCOURAGE AMBULATION 3-5x/day INCREASING TOLERATES, WHILE AVOID EXTREMES IN TEMPERATURE FREQUENCY: RN TO OPEN THE PATIENT WITHIN 24 HOURS OF DISCHARGE FROM THE HOSPITAL WITH TELEHEALTH INSTALLED AT [facility], RN TO VISIT 2-3 X A WEEK FOR 4 WEEKS ESTABLISHED BY PATIENT NEEDS. LABORATORY: CBC, CMP TO BE DRAWN ON THE THIRD DAY HOME, Tuesday, March 07, 2017 (RAN STAT) FAX RESULTS TO [phone]. TELEHEALTH PARAMETERS: WEIGHT: NOTIFY MD OF WEIGHT GAIN OF 2 LBS IN 24 HOURS OR 5 LBS IN ONE WEEK HR: NOTIFY MD OF HR <55 BPM OR HR>100 BPM BP: NOTIFY MD IF BP <90/55 OR BP>140/100 O2 SAT: NOTIFY MD IF PO2<93% ON ROOM AIR SEND TELEHEALTH REPORT TO BOWLING BALL FINISHER AND CARDIOVASCULAR SURGEON THE FIRST WEEK OF CARE AND THEN BI-WEEKLY. PLEASE ADDITIONALLY COMMUNICATE ANY ABNORMALS AND NEW FINDINGS TO THE SURGEONS OFFICE. Plan - Discharge Summary New Discharge Prescriptions: New Aspirin 325 mg PO DAILY #30 tab Atorvastatin [Lipitor] 40 mg PO DAILY #30 tab Clopidogrel [Plavix] 75 mg PO DAILY #30 tab HYDROcodone/APAP 5-325MG [[place] 5-325] 1 - 2 each PO Q6HR PRN #120 tab PRN Reason: Severe Pain Losartan [Cozaar] 12.5 mg PO DAILY@1200 #30 tab Metoprolol Tartrate [Lopressor] 25 mg PO BID #60 tab Pantoprazole [Protonix] 40 mg PO AC-BRKFST #30 tab Sennosides-Docusate Sodium [Senokot-S] 2 each PO HS tab Discontinued Aspirin 325 cap PO ONCE Losartan Potassium [Cozaar] 100 mg PO DAILY Atorvastatin [Lipitor] 80 mg PO HS Discharge Medication List Aspirin 325 mg PO DAILY #30 tab 03/04/17 [Rx] Atorvastatin [Lipitor] 40 mg PO DAILY #30 tab 03/04/17 [Rx] Clopidogrel [Plavix] 75 mg PO DAILY #30 tab 03/04/17 [Rx] HYDROcodone/APAP 5-325MG [[place] 5-325] 1 - 2 each PO Q6HR PRN #120 tab 03/04/17 [Rx] Losartan [Cozaar] 12.5 mg PO DAILY@1200 #30 tab 03/04/17 [Rx] Metoprolol Tartrate [Lopressor] 25 mg PO BID #60 tab 03/04/17 [Rx] Pantoprazole [Protonix] 40 mg PO AC-BRKFST #30 tab 03/04/17 [Rx] Sennosides-Docusate Sodium [Senokot-S] 2 each PO HS tab 03/04/17 [Rx] Follow up Appointment(s)/Referral(s): Zoraida Rosas NPC [Nurse Practitioner] - 03/07/17 12:30 pm Reinaldo Frias MD [STAFF PHYSICIAN] - 03/15/17 1:15 pm [facility], [NON-STAFF] - 1 Week Valdo Orourke DO [Primary Care Provider] - 03/21/17 4:40 pm German Gonzalez MD [STAFF PHYSICIAN] - 03/24/17 3:45 pm Ace Bazan MD [STAFF PHYSICIAN] - 04/04/17 2:00 pm Ambulatory/Diagnostic Orders: Complete Blood Count w/diff [LAB.AMB] Time Frame: 3 Days, Location: Determined By Patient Comprehensive Metabolic Panel [LAB.AMB] Time Frame: 3 Days, Location: Determined By Patient Patient Instructions/Handouts: Heart Healthy Diet (DC), Sternal Precautions ( GEN), Coronary Artery Bypass Graft (DC) Activity/Diet/Wound Care/Special Instructions: DISCHARGE INSTRUCTIONS: 1. No driving for 4 weeks, or until physician gives their ok. 2. The patient should sleep in their own bed, no medical bed needed. 3. Stairs are not an issue. If the bedroom is upstairs, it is advised that the patient go up at night and down in the morning for the first week. Go slowly, using handrail and take 1 step at a time. 4. FAISAL hose are to be worn for 30 days or until physician discontinues. 5. Heart hugger is to be worn 100% of the time until physician discontinues.( except when showering) 6. No lifting, pushing, or pulling more than 10 pounds for 12 weeks. The physician will advise of any restriction changes. 7. The patient is expected to continue the prescribed walking program. 8. Continue pain control per as needed orders. 9. Continue with incentive spirometry and splinting/heart hugger until otherwise directed by the physician. 10. Must shower daily using liquid antibacterial soap and a separate white washcloth for each individual incision. 11. Routine sternal incision care. No powders, lotions, ointments on incisions. 12. Please call surgeon/CHILD NUTRITION DIRECTOR for temp greater than 101 F or purulent drainage from incisions. 13. All prescriptions given by surgeon for 30 days. Refills need to be filled through transfer table operator/primary care physician. HOME HEALTH SERVICES TO PROVIDE: RN SKILLED HOME CARE SERVICES FOR POST-OP SURGICAL PATIENTS WITH THE FOLLOWING: Coronary Artery Bypass Surgery (CABG), Mitral Valve Replacement/ Repair ( MVR), Aortic Valve Replacement/Repair (AVR) RN TO CONTINUE EDUCATION FROM ``ROAD TO A HEALTH HEART PATIENT EDUCATION MANUAL (GIVEN TO PATIENT IN THE HOSPITAL) MEDICATION RECONCILIATION WITH EDUCATION NEEDED ON FIRST HOME VISIT EMPHASIZE IMPORTANCE OF WEARING BREAST SUPPORT/HEART HUGGER ENCOURAGE USE OF INCENTIVE SPIROMETER 10 X EVERY HOUR WHILE AWAKE ENCOURAGE UTILIZATION OF LOWER EXTREMITY COMPRESSION STOCKINGS/FAISAL HOSE and ELEVATE LEGS ABOVE LEVEL OF HEART WHILE AT REST. ENCOURAGE AMBULATION 3-5x/day INCREASING TOLERATES, WHILE AVOID EXTREMES IN TEMPERATURE FREQUENCY: RN TO OPEN THE PATIENT WITHIN 24 HOURS OF DISCHARGE FROM THE HOSPITAL WITH TELEHEALTH INSTALLED AT [facility], RN TO VISIT 2-3 X A WEEK FOR 4 WEEKS ESTABLISHED BY PATIENT NEEDS. LABORATORY: CBC, CMP TO BE DRAWN ON THE THIRD DAY HOME, Tuesday, March 07, 2017 (RAN STAT) FAX RESULTS TO [phone]. TELEHEALTH PARAMETERS: WEIGHT: NOTIFY MD OF WEIGHT GAIN OF 2 LBS IN 24 HOURS OR 5 LBS IN ONE WEEK HR: NOTIFY MD OF HR <55 BPM OR HR>100 BPM BP: NOTIFY MD IF BP <90/55 OR BP>140/100 O2 SAT: NOTIFY MD IF PO2<93% ON ROOM AIR SEND TELEHEALTH REPORT TO BOWLING BALL FINISHER AND CARDIOVASCULAR SURGEON THE FIRST WEEK OF CARE AND THEN BI-WEEKLY. PLEASE ADDITIONALLY COMMUNICATE ANY ABNORMALS AND NEW FINDINGS TO THE SURGEONS OFFICE. Discharge Disposition: HOME WITH HOME HEALTH SERVICES
--- NOTE | 2017-03-04 14:26 | P.PN ---
Subjective This is a pleasant 62-year-old gentleman who underwent coronary artery bypass grafting on the of this month by Dr. Gonzalez. He is doing very well. He's been up walking has showered and has had no difficulties. He remains in sinus rhythm and is hemodynamically stable. He is using his incentive spirometer and has FAISAL hose on bilaterally. He denies complaints of shortness of breath or chest discomfort and says his incisional discomfort is well controlled. He is anticipating discharge today. Objective - Vital Signs Vital signs: Vital Signs Temp 97.0 F L 03/04/17 07:58 Pulse 87 03/04/17 11:25 Resp 18 03/04/17 07:58 BP 118/69 03/04/17 08:41 Pulse Ox 96 03/04/17 08:41 Intake & Output 03/03/17 03/04/17 03/04/17 18:59 06:59 18:59 Intake Total 480 120 Output Total 350 Balance 480 -230 Weight 108.5 kg Intake: Oral 480 120 Output: Urine 350 Other: Voiding Method Urinal # Voids 1 ABP, PAP, CO, CI - Last Documented Arterial Blood Pressure 111/54 Pulmonary Artery Pressure 48/21 Cardiac Output 4.8 Cardiac Index 2.7 - Exam PHYSICAL EXAMINATION: HEENT: Head is atraumatic, normocephalic. Pupils equal, round. Neck is supple. There is no elevated jugular venous pressure. HEART EXAMINATION: Heart sounds regular, S1 and S2 normal. No murmur or gallop heard. CHEST EXAMINATION: Lungs are clear to auscultation and precussion. No chest wall tenderness is noted on palpation or with deep breathing. Sternal incision well approximated. ABDOMEN: Soft, nontender. Bowel sounds are heard. No organomegaly noted. EXTREMITIES: 2+ peripheral pulses with no evidence of peripheral edema and no calf tenderness noted. NEUROLOGIC patient is awake, alert and oriented x3. . - Labs CBC & Chem 7: 03/04/17 06:36 03/04/17 06:36 Labs: Abnormal Lab Results - Last 24 Hours (Table) 03/03/17 03/03/17 03/04/17 Range/Units 16:49 20:50 02:08 WBC (3.8-10.6) k/uL RBC (4.30-5.90) m/uL Hgb (13.0-17.5) gm/dL Hct (39.0-53.0) % Carbon Dioxide (22-30) mmol/L BUN (9-20) mg/dL Glucose (74-99) mg/dL POC Glucose (mg/dL) 109 H 137 H 109 H (75-99) mg/dL Total Protein (6.3-8.2) g/dL 03/04/17 03/04/17 03/04/17 Range/Units 06:06 06:36 06:36 WBC 11.1 H (3.8-10.6) k/uL RBC 3.81 L (4.30-5.90) m/uL Hgb 12.1 L (13.0-17.5) gm/dL Hct 35.7 L (39.0-53.0) % Carbon Dioxide 32 H (22-30) mmol/L BUN 22 H (9-20) mg/dL Glucose 100 H (74-99) mg/dL POC Glucose (mg/dL) 117 H (75-99) mg/dL Total Protein 6.0 L (6.3-8.2) g/dL 03/04/17 Range/Units 11:55 WBC (3.8-10.6) k/uL RBC (4.30-5.90) m/uL Hgb (13.0-17.5) gm/dL Hct (39.0-53.0) % Carbon Dioxide (22-30) mmol/L BUN (9-20) mg/dL Glucose (74-99) mg/dL POC Glucose (mg/dL) 106 H (75-99) mg/dL Total Protein (6.3-8.2) g/dL Assessment and Plan Plan: Assessment and plan #1 multivessel coronary artery disease, status post four-vessel CABG #2 hyperlipidemia #3 obstructive sleep apnea #4 hypertension Cardiology's perspective, patient is stable for discharge home. Continue same meds. Follow up in the office in outpatient with Dr. Frias. The above dictated assessment and findings were discussed with signing physician. The impression and plan of care have been directed as dictated. Page Still, Nurse Practitioner, acting as scribe for signing physician.
== END 2017-03-04 14:42 | disposition home health service (06) | DRG 236 ==
LOC: 2ORMAIN 05:46 → 6ICU 13:28 → 6SEL 03-02 23:01
PROVIDERS: ADMIT Thoracic Surgery (Cardiothoracic Vascular Surgery); ATTEND Thoracic Surgery (Cardiothoracic Vascular Surgery)
PROC: 06BQ4ZZ Excision of Left Saphenous Vein, Percutaneous Endoscopic Approach (ICD-10-PCS; 2017-02-28)
PROC: B246ZZ4 Ultrasonography of Right and Left Heart, Transesophageal (ICD-10-PCS; 2017-02-28)
PROC: 5A1221Z Performance of Cardiac Output, Continuous (ICD-10-PCS; 2017-02-28)
PROC: 0BCC8ZZ Extirpation of Matter from Right Upper Lung Lobe, Via Natural or Artificial Opening Endoscopic (ICD-10-PCS; 2017-02-28)
PROC: 02100Z9 Bypass Coronary Artery, One Artery from Left Internal Mammary, Open Approach (ICD-10-PCS; principal; 2017-02-28 08:00)
PROC: 021209W Bypass Coronary Artery, Three Arteries from Aorta with Autologous Venous Tissue, Open Approach (ICD-10-PCS; 2017-02-28 08:00)
DX: I25.118 Atherosclerotic heart disease of native coronary artery with other forms of angina pectoris (principal); T17.890A Other foreign object in other parts of respiratory tract causing asphyxiation, initial encounter; J98.11 Atelectasis; I10 Essential (primary) hypertension; I95.81 Postprocedural hypotension; R73.9 Hyperglycemia, unspecified; G47.33 Obstructive sleep apnea (adult) (pediatric); E78.5 Hyperlipidemia, unspecified; R42 Dizziness and giddiness; M19.90 Unspecified osteoarthritis, unspecified site; Z79.899 Other long term (current) drug therapy; Z79.82 Long term (current) use of aspirin
CPT/HCPCS: 31624; 71010; 71020; 80048; 80053; 82330; 82805; 83735; 84100; 84132; 85025; 85027; 85520; 85610; 85730; 86850; 86891; 86900; 86901; 86920; 94002; 94003; 94640; 94760

== ENCOUNTER → 2017-05-04 | Outpatient (CLI) | payer BC | END | disposition home or self-care (01) | LOC: LABWHC1 13:26 | PROVIDERS: ATTEND Urology | DX: R97.20 Elevated prostate specific antigen [PSA] (principal) | CPT/HCPCS: 36415; 84153 ==

== ENCOUNTER → 2017-11-16 | Outpatient (CLI) | payer BC ==
[2017-11-16 10:22] LABS: ALT 65 U/L (21-72); AST 31 U/L (17-59); Cholesterol 138 mg/dL (<200); HDL Cholesterol 41 mg/dL (40-60); LDL Cholesterol,Calculated 64 mg/dL (0-99); Triglycerides 164 mg/dL (<150)
== END | disposition home or self-care (01) ==
LOC: LABWHC1 09:55
PROVIDERS: ATTEND Internal Medicine Interventional Cardiology
DX: E78.2 Mixed hyperlipidemia (principal)
CPT/HCPCS: 36415; 80061; 84450; 84460

== ENCOUNTER → 2018-12-12 | Outpatient (CLI) | payer BC ==
--- NOTE | 2018-12-12 13:29 | XR ---
EXAMINATION TYPE: XR shoulder complete RT DATE OF EXAM: 12/12/2018 COMPARISON: NONE HISTORY: Pain TECHNIQUE: Three views are submitted. FINDINGS: The osseous structures are intact. There is no acute fracture or dislocation. Hypertrophic change an d arthropathy of the AC joint. Pleural-based thickening noted in the lung. Sternotomy wires are noted . IMPRESSION: 1. AC joint arthropathy. Correlate for chronic rotator cuff disease. MRI could BE obtained as clinica lly warranted.
== END | disposition home or self-care (01) ==
LOC: RADXRMAIN 13:10
PROVIDERS: ATTEND Family Medicine
DX: M19.011 Primary osteoarthritis, right shoulder (principal)

== ENCOUNTER → 2019-01-27 | Outpatient (CLI) | payer MEDICARE ==
--- NOTE | 2019-01-27 09:14 | MR ---
EXAMINATION TYPE: MR shoulder RT wo con DATE OF EXAM: 01/27/2019 9:06 AM COMPARISON: NONE HISTORY: Right shoulder pain TECHNIQUE: Multiplanar, multisequence imaging of the right shoulder is performed without contrast. FINDINGS: There is no evidence of an os acromiale. There are marked hypertrophic and inflammatory irish nges in the right AC joint. 0 incomplete full-thickness tear of the anterior fibers of supraspinatus tendon. There is muscular re traction back to the midportion of the head of the humerus. The posterior fibers and the infraspinatu s tendon are intact. There is increased subacromial and deltoid bursal fluid. There is some decenteri ng of the humeral head within the glenoid. The cartilaginous glenoid labrum appears intact. The biceps tendon appears frayed within the biceps tendon groove. It does appear to insert normally u soraya the biceps anchor. IMPRESSION: 1. INCOMPLETE FULL-THICKNESS TEAR OF THE ANTERIOR FIBERS OF SUPRASPINATUS TENDON WITH SOME MUSCULAR R ETRACTION. 2. THERE IS A APPEARANCE OF FRAYING OF THE BICEPS TENDON WITHIN THE BICEPS TENDON GROOVE. 3. FAIRLY MARKED HYPERTROPHIC AND INFLAMMATORY CHANGES WITHIN THE RIGHT AC JOINT.
== END | disposition home or self-care (01) ==
LOC: RADMRIMAIN 08:28
PROVIDERS: ATTEND Family Medicine
DX: M75.111 Incomplete rotator cuff tear or rupture of right shoulder, not specified as traumatic (principal); M19.011 Primary osteoarthritis, right shoulder

== ENCOUNTER → 2021-02-17 | Outpatient (CLI) | payer MEDICARE ==
--- NOTE | 2021-02-18 07:45 | MR ---
MRI CERVICAL SPINE: CLINICAL HISTORY: Neck pain into right shoulder for one year. TECHNIQUE: Multiplanar, multisequence imaging of the cervical spine is performed without IV contrast. COMPARISON: Outside cervical spine x-ray December 01, 2020. FINDINGS: Sagittal images of the cervical spine show the craniocervical junction to appear within nor mal limits. The cervical and upper thoracic spinal cord is normal in caliber and signal. Slight grad e 1 retrolisthesis C4 on C5. Mild disc space narrowing C4-C5 level otherwise the vertebral body and i ntravertebral disk heights are normal. The bone marrow signal intensity is within normal limits. Axial images show C2-C3 level to appear within normal limits. Axial images at C3-C4 level show right-sided uncovertebral facet degenerative changes causing mild-to -moderate right-sided neural foraminal narrowing. Axial images at C4-C5 levels with spondylolisthesis with focal central disc protrusion effacing the a nterior thecal sac, there is uncovertebral facet degenerative changes right greater than left along w ith additional right paracentral/foraminal disc protrusion component axial image 33 causing moderate to advanced right-sided neural foraminal narrowing. Left-sided neural foramina is patent. Axial images at C5-C6 level appear within normal limits. Axial images at C6-C7 levels with broad-based posterior disc protrusion effacing anterior thecal sac and causing mild left-sided neural foraminal narrowing. Axial images at C7-T1 level appear within normal limits. IMPRESSION: Spondylolisthesis and degenerative change C4-C5 level causing asymmetric moderate to adva nced right-sided neural foraminal narrowing. Other degenerative findings as detailed above.
== END | disposition home or self-care (01) ==
LOC: RADMRIMAIN 13:19
PROVIDERS: ATTEND Orthopaedic Surgery
DX: M43.12 Spondylolisthesis, cervical region (principal); M50.321 Other cervical disc degeneration at C4-C5 level; M99.71 Connective tissue and disc stenosis of intervertebral foramina of cervical region
CPT/HCPCS: 72141

== ENCOUNTER 2021-02-25 10:43 | Day surgery (SDC) | payer MEDICARE ==
[2021-02-24 08:40] VITALS: BMI 31.8
[~2021-02-25 10:43] MED LIST changes: -ALBUMIN HUMAN 25% 50 ML IV ONE; -ALBUMIN HUMAN 5% 500 ML IVPB ONE; -AMINOCAPROIC ACID 250 MG/ML 20 ML VIAL IV ONE; -AMINOCAPROIC ACID 5,000 MG in DEXTROSE 5% IN WATER 50 ML IV ONE; -ASPIRIN 325 MG TAB PO ONE; -ATORVASTATIN 10 MG TAB PO ONE; -CALCIUM CHLORIDE 100 MG/ML 10 ML SYRINGE IV ONE; -CHLORHEXIDINE GLUCONATE 15 ML CUP MUCOUS MEM ONE; -CLEVIDIPINE BUTYRATE 25 MG in EMPTY BAG 1 BAG IV ONE; +CYCLOPENTOLATE 1% OPHTH SOLN 2 ML BTL OP PRN; -DEXTROSE 5% IN WATER 1,000 ML with POTASSIUM CHLORIDE 110 MEQ, MAGNESIUM SULFATE 16 MEQ... IV SCH; -DEXTROSE 5% IN WATER 1,000 ML with POTASSIUM CHLORIDE 25 MEQ, SODIUM CHLORIDE 4MEQ/ML V... IV SCH; -DEXTROSE 5% IVPB ONE; -DILTIAZEM 125 MG in SODIUM CHLORIDE 0.9% 100 ML IV ONE; -HEPARIN SODIUM 1,000 UN/ML (10ML VL) IV ONE; -HEPARIN SODIUM,PORCINE 5,000 UNIT in SODIUM CHLORIDE 0.9% 500 ML IV ONE; -INSULIN REGULAR 100 UNIT in SODIUM CHLORIDE 0.9% 100 ML IV ONE; +LACTATED RINGERS 1,000 ML IV SCH; +LIDOCAINE 1% (10MG/ML) FOR IV START INTRADERMA PRN; -MAGNESIUM SULFATE IVPB ONE; -MAGNESIUM SULFATE MG 500 MG/ML VIAL IV ONE; -MANNITOL 25% 12.5 GM/50 ML VIAL IV ONE; +MOXIFLOXACIN HCL 0.5% DROPS 3 ML BTL OP PRN; -NITROGLYCERIN-D5W PMX 25 MG/250 ML BTL IV ONE; -NITROGLYCERIN-D5W PMX 50 MG in DEXTROSE/WATER 1 250ML.BAG IV ONE; -NOREPINEPHRIN 4 MG-0.9% NS PMX 4 MG/250 ML ML IV ONE; -PAPAVERINE 360 MG in SODIUM CHLORIDE 0.9% 90 ML IV ONE; +PHENYLEPHRINE 2.5% OPHTH DRP 2ML OP PRN; -PHENYLEPHRINE 40 MG in SODIUM CHLORIDE 0.9% 250 ML IV ONE; -PHENYLEPHRINE-0.9% NACL SYG 1 MG/10 ML SYRINGE IV ONE; -POTASSIUM CHLORIDE IVPB ONE; -PROPOFOL 100 ML IV ONE; -PROTAMINE SULFATE 10 MG/ML 25 ML VIAL IV ONE; -PROTAMINE SULFATE 250 MG in EMPTY BAG 1 BAG IV ONE; -SODIUM BICARB 8.4% 50 ML SYR (1 MEQ/ML) IV ONE; +TETRACAINE 0.5% OPHTH (PF) DROPS 4 ML BTL OP PRN; +TIMOLOL 0.5% OPHTH DROPS 5 ML BTL OP PRN; -WATER IVPB ONE; -ceFAZolin 1,000 MG in SODIUM CHLORIDE 0.9% IRRIGATIO 1,000 ML IRRIGATION ONE; -ceFAZolin 2,000 MG in SODIUM CHLORIDE 0.9% 30 ML IVPB ONE
[2021-02-25 11:27] VITALS: RESP 16; TEMP 97.5
[2021-02-25] MEDS ORDERED: fentaNYL (PF) 50 MCG/ML 2 ML AMP ONE (12:08)
[2021-02-25] MEDS ORDERED: MIDAZOLAM 2 MG/2 ML VIAL ONE (12:08)
[2021-02-25] MEDS ORDERED: HYALURONATE SODIUM INTRAOCULAR 1 EACH SYRINGE (12MG/ML) INTRAOCULA ONE (12:27)
[2021-02-25] MEDS ORDERED: EPINEPHrine (PF) 0.3 ML in BALANCED SALT IRRIG SOLN COMB2 500 ML IRRIGATION ONE (12:27)
[2021-02-25] MEDS ORDERED: EPINEPHrine (PF) 1 MG/ML AMP MISCELLANE ONE (12:28)
[2021-02-25] MEDS ORDERED: LIDOCAINE 1% (PF) 10MG/ML VIAL MISCELLANE ONE (12:28)
[2021-02-25] MEDS ORDERED: BALANCED SALT IRRIG SOLN COMB2 15 ML IRRIG.SOLN IRRIGATION ONE (12:28)
--- NOTE | 2021-02-25 12:41 | P.OP ---
Date of Procedure: 02/25/21 Preoperative Diagnosis: NS & CS Postoperative Diagnosis: same Procedure(s) Performed: PIOL< OS Implants: [id number] 20.50 Anesthesia: MAC Surgeon: Jarvis Cohen Pathology: none sent Condition: stable Disposition: same day Indications for Procedure: blurry vision Operative Findings: no complications
[2021-02-25 12:51] VITALS: PULSE 70
[2021-02-25 13:08] VITALS: BP 110/69
--- NOTE | 2021-02-26 09:44 | OP ---
OPERATIVE REPORT DATE OF SURGERY: February 25, 2021 PROCEDURES: Phacoemulsification of cataract and intraocular lens implant of the left eye. PREOPERATIVE DIAGNOSES: Nuclear sclerosis cortical sclerosis and history of Flomax. POSTOPERATIVE DIAGNOSES: Nuclear sclerosis, cortical sclerosis and floppy iris syndrome. SURGEON: Dr. Jarvis Cohen. ANESTHESIA: Topical. ESTIMATED BLOOD LOSS: None. SPECIMEN TAKEN: None. NARRATIVE: After obtaining the appropriate consent, the patient was brought to the operating room. There he was placed under cardiac monitoring, prepped and draped in usual sterile manner. He was approached from the 12 o'clock position and at the 1 o'clock position, an MVR blade was used to create a paracentesis port. Through this opening, 1% Xylocaine MPF with epinephrine 1-1000 MPF and balanced salt solution in a ratio 1-2 to 1 was injected into the anterior chamber. This was followed by stabilization of the anterior chamber with Amvisc. At the 12 o'clock position a 2.5 mm keratome was used to create a self-sealing corneal flap incision. Through due to the persistence of poorly dilated pupil and appearance of the stroma of the iris, not responding properly to the epinephrine, a 7 mm Malyugin ring was inserted on the pupillary sphincter without difficulty. Following the placement of the Malyugin ring, a cystotome was introduced to begin a continuous tear capsulorrhexis which was then completed using the Utrata forceps. Hydrodissection and hydrodelineation of the lens were accomplished with balanced salt solution. Phacoemulsification of the lens utilizing phaco chop was accomplished and 7.15 seconds, a 10% power. Additional Xylocaine/epinephrine mix was instilled into the anterior chamber. This was followed by removal of the remaining cortex under irrigation and aspiration as well as careful polishing of the posterior capsule in capsule vacuum mode. Additional Amvisc was then used to stabilize the capsular bag and a Bausch and Lomb MX 60E 20.5 diopter posterior chamber intraocular lens was then inserted into the capsular bag without difficulty. The Malyugin ring was then disinserted from the pupillary sphincter and removed from the anterior chamber. Irrigation and aspiration of the intraocular lens as well as possible around the posterior aspect of the intraocular lens and the anterior chamber was accomplished without leading to any iris prolapse through the superior incision. Once this was completed, the eye was brought to normal intraocular pressures through the paracentesis port while ensuring a watertight integrity. He then received 2 drops of 0.5% timolol as well as 2 drops of moxifloxacin, was then lightly patched and shielded in the usual manner. There were no complications from the procedure. He tolerated the procedure well and was returned to outpatient recovery in good condition. MMTATI / KETURAHN: [id number] /
== END 2021-02-25 13:40 | disposition home or self-care (01) ==
LOC: OR 10:43
PROVIDERS: ATTEND Ophthalmology
DX: H25.12 Age-related nuclear cataract, left eye (principal); I10 Essential (primary) hypertension; E78.00 Pure hypercholesterolemia, unspecified; D31.32 Benign neoplasm of left choroid; H00.026 Hordeolum internum left eye, unspecified eyelid; H00.023 Hordeolum internum right eye, unspecified eyelid; H52.03 Hypermetropia, bilateral; H52.223 Regular astigmatism, bilateral; H52.4 Presbyopia; Z79.899 Other long term (current) drug therapy; I25.10 Atherosclerotic heart disease of native coronary artery without angina pectoris; Z95.1 Presence of aortocoronary bypass graft; Z79.02 Long term (current) use of antithrombotics/antiplatelets
CPT/HCPCS: 66984; C1780; J2250; J0171; J3010; J2001

== ENCOUNTER 2021-03-11 08:40 | Day surgery (SDC) | payer MEDICARE ==
[2021-03-09 15:20] VITALS: BMI 31.8
[2021-03-11 09:11] VITALS: TEMP 97.3
[2021-03-11] MEDS ORDERED: MIDAZOLAM 2 MG/2 ML VIAL ONE (09:54)
[2021-03-11] MEDS ORDERED: fentaNYL (PF) 50 MCG/ML 2 ML AMP ONE (09:54)
[2021-03-11] MEDS ORDERED: BALANCED SALT IRRIG SOLN COMB2 15 ML IRRIG.SOLN INTRAOCULA ONE (10:08)
[2021-03-11] MEDS ORDERED: HYALURONATE SODIUM INTRAOCULAR 1 EACH SYRINGE (12MG/ML) INTRAOCULA ONE (10:08)
[2021-03-11] MEDS ORDERED: LIDOCAINE 1% (PF) 10MG/ML VIAL MISCELLANE ONE (10:08)
[2021-03-11] MEDS ORDERED: EPINEPHrine (PF) 0.3 ML in BALANCED SALT IRRIG SOLN COMB2 500 ML IRRIGATION ONE (10:09)
--- NOTE | 2021-03-11 10:22 | P.OP ---
Date of Procedure: 03/11/21 Preoperative Diagnosis: NS Postoperative Diagnosis: same Procedure(s) Performed: PIOL, OD Implants: [id number] 20.50 Anesthesia: MAC Surgeon: Jarvis Cohen Pathology: none sent Condition: stable Disposition: same day Indications for Procedure: blurry vision Operative Findings: no complications
[2021-03-11 10:27] VITALS: RESP 16
[2021-03-11 10:38] VITALS: BP 143/86; PULSE 69
--- NOTE | 2021-03-12 09:35 | OP ---
OPERATIVE REPORT DATE OF SERVICE: March 11, 2021 PROCEDURES: Phacoemulsification of cataract and intraocular lens implant of the right eye. PREOPERATIVE DIAGNOSIS: Nuclear sclerosis and exposure to Flomax. POSTOPERATIVE DIAGNOSES: Nuclear sclerosis and exposure to Flomax. SURGEON: Dr. Jarvis Cohen. ANESTHESIA: Topical. ESTIMATED BLOOD LOSS: None. SPECIMEN: Taken none. NARRATIVE: After obtaining the appropriate consent, the patient was brought to the operating room. There he was placed under cardiac monitoring, prepped and draped in the usual sterile manner. He was approached from his right temporal side and at the 11 o'clock position an MVR blade was used to create a paracentesis port. Through this opening, 1% Xylocaine MPF with epinephrine 1 1000 MPF and balanced salt solution in a ratio of 1:2:1 was injected into the anterior chamber. This was followed by stabilization of the anterior chamber with Amvisc. At the 9 o'clock position, a 2.5 mm keratome was used to create a self-sealing corneal flap incision. Through this opening, a cystotome was introduced to begin a continuous tear capsulorrhexis which was completed using the Utrata forceps. Hydrodissection and hydrodelineation of the lens were accomplished with balanced salt solution. Phacoemulsification of the lens was accomplished as phaco chop in 5.56 seconds at 8% power. Additional Xylocaine MPF was instilled into the anterior chamber. This was followed by removal of the remaining cortical material under irrigation and aspiration as well as careful polishing of the posterior capsule in the capsule vacuum mode. Additional Amvisc was then used to stabilize the capsular bag and a Bausch and Lomb MX60E 20.5 diopter posterior chamber intraocular lens was then inserted into the capsular bag without difficulty. The remaining viscoelastic was removed from in and around the intraocular lens as well as the anterior chamber. The temporal incision was confirmed watertight and the eye was brought to normal intraocular pressure through the paracentesis port with balanced salt solution. He then received 2 drops of 0.5% timolol followed by 2 drops of moxifloxacin, was then lightly patched and shielded in the usual manner. There were no complications from the procedure. He tolerated the procedure well and was returned to outpatient recovery in good condition. MMODL / IJN: [id number] /
== END 2021-03-11 10:57 | disposition home or self-care (01) ==
LOC: OR 08:40
PROVIDERS: ATTEND Ophthalmology
DX: H25.11 Age-related nuclear cataract, right eye (principal); I25.10 Atherosclerotic heart disease of native coronary artery without angina pectoris; I10 Essential (primary) hypertension; E78.5 Hyperlipidemia, unspecified; Z79.82 Long term (current) use of aspirin; Z79.01 Long term (current) use of anticoagulants; Z95.1 Presence of aortocoronary bypass graft
CPT/HCPCS: 68850; C1780; J2250; J0171; J3010; J2001

== ENCOUNTER → 2021-04-21 | Outpatient (CLI) | payer MEDICARE ==
--- NOTE | 2021-04-21 08:10 | CT ---
EXAMINATION TYPE: CT cervical spine wo con DATE OF EXAM: 04/21/2021 COMPARISON: MRI cervical spine February 17, 2021 HISTORY: Cervicalgia CT DLP: 577 mGycm. Automated Exposure Control for Dose Reduction was Utilized. TECHNIQUE: CT scan of the cervical spine is obtained without contrast, axial images are obtained, sa gittal and coronal reformatted images are also reviewed. FINDINGS: Cervical spine is visualized in its entirety from C1 through upper thoracic levels, and red emonstrates grade 1 retrolisthesis C4 on C5. Prevertebral soft tissue appears within normal limits. The C1-C2 articulation is within normal limits on the coronal images. Vertebral body heights are hood ntained. [id number] disc space narrowing and spurring C4-C5 level redemonstrated. Review of axial images shows C2-C3 level to appear within normal limits. Axial images at C3-C4 level redemonstrate right-sided uncovertebral facet degenerative changes causin g moderate right-sided neural foraminal narrowing. Axial images at C4-C5 levels with posterior spur disc complex with right-sided marginal spurring, the re is effacement of the anterior thecal sac and moderate to advanced right-sided neural foraminal santiago rowing. Axial images at C5-C6 level appear within normal limits. Axial images at C6-C7 level showed broad based posterior disc protrusion mildly effacing the anterior thecal sac, patent bilateral neural foramina. Axial images at C7-T1 level appear within normal limits. 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 Lung apices show no pneumothora x. A few tiny micronodules in the right lung apex are present. Thyroid gland is somewhat small in siz e. IMPRESSION: As above. Spondylolisthesis and degenerative change C4-C5 redemonstrated.
== END | disposition home or self-care (01) ==
LOC: RADCTMAIN 07:11
PROVIDERS: ATTEND Orthopaedic Surgery
DX: M47.812 Spondylosis without myelopathy or radiculopathy, cervical region (principal); M43.12 Spondylolisthesis, cervical region
CPT/HCPCS: 72125

== ENCOUNTER → 2021-04-21 | Outpatient (CLI) | payer MEDICARE | END | disposition home or self-care (01) | LOC: LABWHC1 07:30 | PROVIDERS: ATTEND Urology | DX: N40.1 Benign prostatic hyperplasia with lower urinary tract symptoms (principal) | CPT/HCPCS: 36415; 84153 ==

== ENCOUNTER 2021-06-09 08:38 | Day surgery (SDC) | payer MEDICARE ==
[2021-05-20 12:28] VITALS: BMI 31.1
[~2021-06-09 08:38] MED LIST changes: -CYCLOPENTOLATE 1% OPHTH SOLN 2 ML BTL OP PRN; -MOXIFLOXACIN HCL 0.5% DROPS 3 ML BTL OP PRN; -PHENYLEPHRINE 2.5% OPHTH DRP 2ML OP PRN; -TETRACAINE 0.5% OPHTH (PF) DROPS 4 ML BTL OP PRN; -TIMOLOL 0.5% OPHTH DROPS 5 ML BTL OP PRN
[2021-06-09 08:57] VITALS: TEMP 97.8
[2021-06-09] MEDS ORDERED: LACTATED RINGERS 1,000 ML IV ONE (08:57)
[2021-06-09 09:03] LABS: Glucose,Whole Blood 91 mg/dL (75-99)
[2021-06-09] MEDS ORDERED: IOPAMIDOL M200 10 ML VIAL ONE (09:33)
[2021-06-09] MEDS ORDERED: DEXAMETHASONE SOD PHOSPHATE 10 MG/ML 1 ML VIAL ONE (09:33)
[2021-06-09] MEDS ORDERED: MIDAZOLAM 2 MG/2 ML VIAL ONE (09:33)
[2021-06-09] MEDS ORDERED: fentaNYL (PF) 50 MCG/ML 2 ML AMP ONE (09:33)
--- NOTE | 2021-06-09 09:47 | P.PCN ---
Date of Procedure: 06/09/21 Procedure(s) Performed: . PROCEDURE 1. Cervical epidural steroid injection under fluoroscopic guidance, C4-5 (fluoroscopy images available in the radiology department ) 2. Cervical epidurogram. PREOPERATIVE DIAGNOSIS: 1- Cervical Degenerative Disc Diseases 2-cervical spondylosis with cervical Facet arthropathy without myelopathy POSTOPERATIVE DIAGNOSIS: : 1- Cervical Degenerative Disc Diseases , 2-cervical spondylosis with cervical Facet arthropathy without myelopathy ANESTHESIA: Local anesthesia with lidocaine 1 % , and moderate sedation, with Versed 2 mg and Fentanyl 50 mcg. EBL 0 PROCEDURE INDICATION: The patient with neck pain and radiculitis unresponsive to conservative treatment consents for procedure. PROCEDURE DESCRIPTION / TECHNIQUE: The patient was seen and identified in the preoperative area. Risks, benefits, complications, including but not limited to infections ,bleeding , allergic reactions to the medications ,and not complete pain releife, and alternatives were discussed with the patient, the patient agreed to proceed with the procedure and signed the consent. Patient was taken to the OR and time out was completed. The patient was placed in the prone position on the procedure table. A pillow was placed under the patients chest to increase the cervical interlaminar space. The cervical area was prepped and draped in the usual sterile fashion. Vital signs were closely monitored during the procedure. Conscious sedation was used during the procedure to decrease patients anxiety. Using anterior-posterior fluoroscopy, the C4-5 interlaminar space was identified and the skin over this site was marked and then infiltrated with 1% lidocaine subcutaneously. Subsequently, a 20-gauge 3-1/2-inch Tuohy epidural needle was inserted and advanced toward the epidural space by means of the ``hanging-drop technique and guided by AP and lateral fluoroscopy. The correct needle position in the epidural space was verified with the injection of 2 mL of the water soluble contrast dye Isovue-200 and observing an excellent epidurogram with the epidural spread of the dye, after negative aspiration for blood and CSF and in the absence of paresthesias. then, mixture containing 15 mg Dexamethasone and 2 ml of preservative-free normal saline injected and a washout of epidurogram was seen. Needle was withdrawn intact, skin was cleansed, and bandages were applied. Complications= none. Disposition= patient was placed in supine position and transferred to the recovery room area in stable condition and there was no evidence of upper or lower extremity motor or sensory deficit after the procedure patient was discharged from recovery room after discharge criteria met and home discharge instructions was given by the staff and patient will follow with the pain clinic in 2-4 weeks. Note = Last dose of Plavix was 1 week ago
[2021-06-09 09:56] VITALS: RESP 16
[2021-06-09 10:16] VITALS: BP 136/74; PULSE 74
--- NOTE | 2021-06-09 11:54 | FL ---
EXAMINATION TYPE: FL guided pain mgmt statistic DATE OF EXAM: 06/09/2021 CLINICAL HISTORY: Neck pain. TECHNIQUE: Fluoroscopy. COMPARISON: CT cervical spine April 21, 2021 FINDINGS: Fluoroscopic guidance was provided during pain relief procedure performed by Dr. Burks . A total of 2 seconds of fluoroscopic time was utilized during the procedure and 1 spot images are acquired. Single image acquired shows needle localization with contrast injection at level of mid ce rvical spine. IMPRESSION: As Above.
== END 2021-06-09 10:31 | disposition home or self-care (01) ==
LOC: ORPAIN 08:38
PROVIDERS: ATTEND Specialist
DX: M47.812 Spondylosis without myelopathy or radiculopathy, cervical region (principal); F41.9 Anxiety disorder, unspecified; Z79.02 Long term (current) use of antithrombotics/antiplatelets
CPT/HCPCS: 62321; J2250; J1100; J3010; Q9966; 99152

== ENCOUNTER → 2021-06-29 | Outpatient (CLI) | payer MEDICARE ==
[2021-06-29 09:03] VITALS: BP 157/98
[2021-06-29 09:21] VITALS: PULSE 79; RESP 18; TEMP 97.6
--- NOTE | 2021-06-29 09:41 | P.PN ---
Subjective Progress Note Date: 06/29/21 This is follow-up visit for this 66 years old male with a chronic history of severe neck pain, he is diagnosed with cervical degenerative disc disease and cervical spondylosis and cervical facet arthropathy, recently we have done cervical epidural steroid injections ,he reported that he had excellent pain relief for 2-1/2 weeks, and currently he is complaining of severe neck pain and he denies any numbness or tingling sensation, denies any weakness in his upper extremity and he reported that his neck pain improved with any neck movement, constant and increases with any activity, denies any fever or night sweats he denies any change in the bowel movement or urination, he already done physical therapy, and home exercise and he continued to have pain Objective - Vital Signs Vital signs: Vital Signs Temp 97.6 F 06/29/21 08:58 Pulse 79 06/29/21 08:58 Resp 18 06/29/21 08:58 BP 157/98 06/29/21 08:58 Pulse Ox 97 06/29/21 08:58 - Exam Physical Examinations : -Constitutiona : Cooperative , not in acute distress . -HEENT : nech : supple , no Lymphadenopathy , normal thyroid size . : eyes : no ptosis , no icterus, no photophobia . - neurologic : Cranial nerve II to XII intact , no focal neurological deffecit . -psychatric : alert , oriented X 3 , appropriate affect , intact judgment and insight . -Lymphatic : no Lymphadenopathy . - musculoskeltal : Cervical Spine motor stregnth in the deltoid and biceps, normal right side , normal Left side motor stregnth biceps and the wrist extensors normal right side ,normal left side . motor stregnth in the triceps muscle . normal Right side , normal Left side deep tendon reflexes normal at the biceps , normal at Brachioradialis , normal at triceps. cervical facet loading test: Positive Bilaterally Spurling test= positive Right , positive left. Neck distraction test= positive Right , positive left. Alisa sign= positive right, positive left . Lumber spine moter stegnth lower extremities ,thigh and legs 5/5 Right side , 5/5 Left side Assessment and Plan Plan: Assessment and plan=1-cervical degenerative disc disease. 2-cervical spondylosis and cervical facet arthropathy. he had excellent pain relief after her first cervical epidural steroid injection, He could benefit from repeat cervical epidural steroid injection Patient had to hold Plavix for 1 week before the procedure - PQRS measures = - Patient's medications are documented in the chart. -Tobacco use is negative and counseling.Given. -Patient's has not received pneumococcal vaccine. -Advanced care planning discussed, patient not eligible. -Opiate contract not signed. -Pain positive and follow-up visit/procedure is scheduled. -Patient's blood pressure measured [ 157/98 ] , and documented in the record ,and patient will follow up with the primary care. -Patient's weight was measured and body mass index [ 31 ] above the normal limits and counseling was done. and patient instructed to follow-up with the primary care physician. -Patient was not identified as an unhealthy alcohol user Time with Patient: Less than 30
== END ==
LOC: PNWHC3 08:49
PROVIDERS: ATTEND Specialist
DX: M47.812 Spondylosis without myelopathy or radiculopathy, cervical region (principal); M50.30 Other cervical disc degeneration, unspecified cervical region
CPT/HCPCS: 99211

== ENCOUNTER 2021-09-03 06:36 | Day surgery (SDC) | payer MEDICARE ==
[2021-08-28 14:09] VITALS: BMI 31.1
[~2021-09-03 06:36] MED LIST changes: -LIDOCAINE 1% (10MG/ML) FOR IV START INTRADERMA PRN
[2021-09-03 07:11] VITALS: RESP 20; TEMP 98.6
[2021-09-03 07:25] LABS: Glucose,Whole Blood 93 mg/dL (75-99)
[2021-09-03] MEDS ORDERED: IOPAMIDOL M200 10 ML VIAL ONE (07:47)
[2021-09-03] MEDS ORDERED: DEXAMETHASONE SOD PHOSPHATE 10 MG/ML 1 ML VIAL ONE (07:47)
--- NOTE | 2021-09-03 07:59 | P.PCN ---
Date of Procedure: 09/03/21 Procedure(s) Performed: PROCEDURE 1. Cervical epidural steroid injection under fluoroscopic guidance, C4-5 (fluoroscopy images available in the radiology department ) 2. Cervical epidurogram. PREOPERATIVE DIAGNOSIS: 1- Cervical Degenerative Disc Diseases 2-cervical spondylosis with cervical Facet arthropathy without myelopathy POSTOPERATIVE DIAGNOSIS: : 1- Cervical Degenerative Disc Diseases , 2-cervical spondylosis with cervical Facet arthropathy without myelopathy ANESTHESIA: Local anesthesia with lidocaine 1 % 3 ml . EBL 0 PROCEDURE INDICATION: The patient with neck pain and radiculitis unresponsive to conservative treatment consents for procedure. PROCEDURE DESCRIPTION / TECHNIQUE: The patient was seen and identified in the preoperative area. Risks, benefits, complications, including but not limited to infections ,bleeding , allergic reactions to the medications ,and not complete pain releife, and alternatives were discussed with the patient, the patient agreed to proceed with the procedure and signed the consent. Patient was taken to the OR and time out was completed. The patient was placed in the prone position on the procedure table. A pillow was placed under the patients chest to increase the cervical interlaminar space. The cervical area was prepped and draped in the usual sterile fashion. Vital signs were closely monitored during the procedure. Using anterior-posterior fluoroscopy, the C4-5 interlaminar space was identified and the skin over this site was marked and then infiltrated with 1% lidocaine subcutaneously. Subsequently, a 20-gauge 3-1/2-inch Tuohy epidural needle was inserted and advanced toward the epidural space by means of the ``hanging-drop technique and guided by AP and lateral fluoroscopy. The correct needle position in the epidural space was verified with the injection of 2 mL of the water soluble contrast dye Isovue-200 and observing an excellent epidurogram with the epidural spread of the dye, after negative aspiration for blood and CSF and in the absence of paresthesias. then, mixture containing 15 mg Dexamethasone and 2 ml of preservative-free normal saline injected and a washout of epidurogram was seen. Needle was withdrawn intact, skin was cleansed, and bandages were applied. Complications= none. Disposition= patient was placed in supine position and transferred to the recovery room area in stable condition and there was no evidence of upper or lower extremity motor or sensory deficit after the procedure patient was discharged from recovery room after discharge criteria met and home discharge instructions was given by the staff and patient will follow with the pain clinic in 2-4 weeks. Note = Last dose of Plavix was 1 week ago
[2021-09-03 08:21] VITALS: BP 129/75; PULSE 72
--- NOTE | 2021-09-03 09:39 | FL ---
Fluoroscopy HISTORY: Pain 2 seconds fluoroscopy time supplied to the referring clinician. 1 intraoperative C-arm images docume nt the procedure. See dictated report from anesthesia.
== END 2021-09-03 08:22 | disposition home or self-care (01) ==
LOC: ORPAIN 06:36
PROVIDERS: ATTEND Specialist
DX: M50.30 Other cervical disc degeneration, unspecified cervical region (principal); M47.812 Spondylosis without myelopathy or radiculopathy, cervical region
CPT/HCPCS: 62321; J1100; Q9966

== ENCOUNTER → 2021-09-17 | Outpatient (CLI) | payer MEDICARE ==
[2021-09-17 12:46] VITALS: BP 134/74; PULSE 70; RESP 18; TEMP 98.1
--- NOTE | 2021-09-17 12:56 | P.PN ---
Subjective Progress Note Date: 09/17/21 Principal diagnosis: A 66 yr old male with a history of severe and chronic neck pain secondary to cervical degenerative disc diseases and spondylosis with facet arthropathy presents today for pain evaluation. Patient experienced 85% pain relief with his second C4 to C5 CHINO on September 03. Pain level is currently at 1 out of 10 but has dropped significantly from 6 out of 10 with procedures. Pain is dull/ achy in the cervical spine sharp/ shooting towards the right shoulder. Pain is provoked by hyperextension of the neck. Pain is alleviated with injections, physical therapy, chiropractic treatments, home exercise, rest. Pt does not take medications or use topicals for pain relief. Interventional pain procedures completed include C4-C5 CHINO #2 Patient denies any side effects of the medication(s), denies excessive drowsiness or sleepiness, denies suicidal ideation and reports that the current pain medication is helping to control the pain and improve activities of daily living. Patient denies any motor or sensory deficits. Patient denies any fever or night sweats, denies any change in the bowel movements or urination. Physical Examination: -Constitutional: Cooperative. Not in acute distress . -HEENT: Neck is supple. No lymphadenopathy. No thyromegaly. Normal thyroid size. Eyes: No ptosis , no icterus, no photophobia. ENT: No auditory deficits. Normal oropharynx. No Thrush. - Respiratory: Chest clear to auscultations bilaterally. No wheezing. No rhonchi. - Cardiovascular: Regular rate and rhythm. S1 / S2 , no S3 , no S4. - Gastrointestinal: Abdomen soft no tenderness. Bowel sounds positive in all four quadrants. No organomegaly. - Genitourinary: Deferred. - Neurologic: Cranial nerve II to XII intact. No focal neurological deficits. - Psychatric: Alert & oriented x 3. Matching mood & appropriate affect. Judgment and insight intact. - Lymphatic: No Lymphadenopathy. - Musculoskeletal: Cervical spine: Muscle bulk/ tone/ strength in the bilateral upper extremities normal Spurling test positive Distraction test positive Facet loading test cervical area positive over C4-C5, C5-C6 bilaterally Lumbar spine: Motor bulk/ tone/ strength lower extremities , thigh and legs : 5/5 Deep tendon reflexes : Normal Knee Jerk. Normal Ankle Jerk . Lumbar Facet Loading Test positive Straight Leg Raise: positive at 30 degree right side/ left side Chastity test: positive right side / left side Range of motion: Range of motion in flexion of the lumbar spine <60 degrees Range of motion: Extension of the lumbar spine <20 degrees Severe tenderness over the Sacroiliac joint: right side / left side Assessment and plan: Chronic neck pain secondary to cervical degenerative disc disease , spondylosis with facet arthropathy without myelopathy Recommendation of third C4 - C5 CHINO To discontinue Plavix and aspirin 7 days prior to procedure Risks and benefits discussed and patient verbalized understanding All questions answered All patient questions answered MAPS reviewed and it was appropriate. I have spent 31 minutes on patient care today. Dr Burks was available by phone for the evaluation of this patient. The time was used to review the medical records including relevant urine studies and Prescription history (MAPs), review of the available imaging, evaluation and examination of the patient, coordination of care with the medical staff and if applicable referring physicians, as well as creation of the medical record Objective - Vital Signs Vital signs: Vital Signs Temp 98.1 F 09/17/21 12:32 Pulse 70 09/17/21 12:32 Resp 18 09/17/21 12:32 BP 134/74 09/17/21 12:32 Pulse Ox 97 09/17/21 12:32 PQRS Measure Charge Sheet Mode of Arrival: Ambulatory - Pain Location Neck Non-Pharmacological Interventions: Chiropractic Treatment, Home Exercise, Physical Therapy, Stretching Pharmacological Interventions: Epidural PQRS Narrative: Smoking Status Never smoker Blood Pressure 134/74 Pain Intensity [Neck] 1 Scale Used Numeric (1 - 10) Hx Alcohol Use (MH) Yes Home Medications: Ambulatory Orders Atorvastatin [Lipitor] 40 mg PO DAILY #30 tab 03/04/17 Clopidogrel [Plavix] 75 mg PO DAILY #30 tab 03/04/17 Aspirin 81 mg PO DAILY 02/24/21 Cholecalciferol [Vitamin D3 (25 Mcg = 1000 Iu)] 25 mcg PO DAILY 02/24/21 Metoprolol Tartrate [Lopressor] 12.5 mg PO DAILY 02/24/21 amLODIPine BESYLATE [Norvasc] 2.5 mg PO DAILY 03/09/21 Silodosin [Rapaflo] 8 mg PO HS 06/08/21 metFORMIN HCL 500 mg PO HS 06/08/21
== END ==
LOC: PNWHC3 12:03
PROVIDERS: ATTEND Physician Assistant Medical
DX: G89.29 Other chronic pain (principal); M50.30 Other cervical disc degeneration, unspecified cervical region; M47.812 Spondylosis without myelopathy or radiculopathy, cervical region
CPT/HCPCS: 99211

== ENCOUNTER 2021-10-22 09:46 | Day surgery (SDC) | payer MEDICARE ==
[2021-10-22 10:15] VITALS: TEMP 97.3
[2021-10-22] MEDS ORDERED: IOPAMIDOL M200 10 ML VIAL ONE (10:29)
[2021-10-22] MEDS ORDERED: DEXAMETHASONE SOD PHOSPHATE 10 MG/ML 1 ML VIAL ONE (10:29)
--- NOTE | 2021-10-22 10:43 | P.PCN ---
Date of Procedure: 10/22/21 Procedure(s) Performed: PROCEDURE 1. Cervical epidural steroid injection under fluoroscopic guidance, C4-5 (fluoroscopy images available in the radiology department ) 2. Cervical epidurogram. PREOPERATIVE DIAGNOSIS: 1- Cervical Degenerative Disc Diseases 2-cervical spondylosis with cervical Facet arthropathy without myelopathy POSTOPERATIVE DIAGNOSIS: : 1- Cervical Degenerative Disc Diseases , 2-cervical spondylosis with cervical Facet arthropathy without myelopathy ANESTHESIA: Local anesthesia with lidocaine 1 % 3 ml . EBL 0 PROCEDURE INDICATION: The patient with neck pain and radiculitis unresponsive to conservative treatment consents for procedure. PROCEDURE DESCRIPTION / TECHNIQUE: The patient was seen and identified in the preoperative area. Risks, benefits, complications, including but not limited to infections ,bleeding , allergic reactions to the medications ,and not complete pain releife, and alternatives were discussed with the patient, the patient agreed to proceed with the procedure and signed the consent. Patient was taken to the OR and time out was completed. The patient was placed in the prone position on the procedure table. A pillow was placed under the patients chest to increase the cervical interlaminar space. The cervical area was prepped and draped in the usual sterile fashion. Vital signs were closely monitored during the procedure. Using anterior-posterior fluoroscopy, the C4-5 interlaminar space was identified and the skin over this site was marked and then infiltrated with 1% lidocaine subcutaneously. Subsequently, a 20-gauge 3-1/2-inch Tuohy epidural needle was inserted and advanced toward the epidural space by means of the ``hanging-drop technique and guided by AP and lateral fluoroscopy. The correct needle position in the epidural space was verified with the injection of 2 mL of the water soluble contrast dye Isovue-200 and observing an excellent epidurogram with the epidural spread of the dye, after negative aspiration for blood and CSF and in the absence of paresthesias. then, mixture containing 20 mg Dexamethasone and 2 ml of preservative-free normal saline injected and a washout of epidurogram was seen. Needle was withdrawn intact, skin was cleansed, and bandages were applied. Complications= none. Disposition= patient was placed in supine position and transferred to the recovery room area in stable condition and there was no evidence of upper or lower extremity motor or sensory deficit after the procedure patient was discharged from recovery room after discharge criteria met and home discharge instructions was given by the staff and patient will follow with the pain clinic in 2-4 weeks. Note = Last dose of Plavix was 1 week ago
[2021-10-22 10:51] VITALS: RESP 16
[2021-10-22 11:01] VITALS: BP 132/80; PULSE 77
--- NOTE | 2021-10-22 12:44 | FL ---
Fluoroscopy HISTORY: Pain 8 seconds fluoroscopy time supplied to the referring clinician. 1 intraoperative C-arm images docume nt the procedure. See dictated report from anesthesia.
== END 2021-10-22 11:03 | disposition home or self-care (01) ==
LOC: ORPAIN 09:46
PROVIDERS: ATTEND Specialist
DX: M50.321 Other cervical disc degeneration at C4-C5 level (principal); M47.812 Spondylosis without myelopathy or radiculopathy, cervical region; Z79.02 Long term (current) use of antithrombotics/antiplatelets
CPT/HCPCS: 62321; J1100; Q9966

== ENCOUNTER → 2021-11-05 | Outpatient (CLI) | payer MEDICARE ==
--- NOTE | 2021-11-05 08:45 | P.PN ---
Subjective Progress Note Date: 11/05/21 Principal diagnosis: A 66 yr old male with a history of severe and chronic neck pain secondary to cervical degenerative disc diseases, spondylolisthesis, disc bulges, neural foraminal stenosis and spinal stenosis presents today for evaluation status post CHINO C4-C5 #3. Patient states he expressed 85% pain relief for 10 days status post procedure. Pain level is currently at 3 out of 10 in intensity, localized in the middle aspect of his cervical spine and wedged between been neck and the right shoulder. It is sharp, tight, sore in character and escalates as high as 4 out of 10 in intensity when rotating to the right. Pain is alleviated with topicals, ice, heat, physical therapy on May 2021 that produces no changes, chiropractic treatments weekly, use, massage can at home and rest. Interventional pain procedures completed include CHINO C4-C5 x 3 Patient is currently on ASA 81mg Patient denies any side effects of the medication(s), denies excessive drowsiness or sleepiness, denies suicidal ideation and reports that the current pain medication is helping to control the pain and improve activities of daily living. Patient denies any motor or sensory deficits. Patient denies any fever or night sweats, denies any change in the bowel movements or urination. Physical Examination: -Constitutional: Cooperative. Not in acute distress . -HEENT: Neck is supple. No lymphadenopathy. No thyromegaly. Normal thyroid size. Eyes: No ptosis , no icterus, no photophobia. ENT: No auditory deficits. Normal oropharynx. No Thrush. - Respiratory: Chest clear to auscultations bilaterally. No wheezing. No rh onchi. - Cardiovascular: Regular rate and rhythm. S1 / S2 , no S3 , no S4. - Gastrointestinal: Abdomen soft no tenderness. Bowel sounds positive in all four quadrants. No organomegaly. - Genitourinary: Deferred. - Neurologic: Cranial nerve II to XII intact. No focal neurological deficits. - Psychatric: Alert & oriented x 3. Matching mood & appropriate affect. Judgment and insight intact. - Lymphatic: No Lymphadenopathy. - Musculoskeletal: Cervical spine: Muscle bulk/ tone/ strength in the bilateral upper extremities normal. Distraction test positive Spurling test positive Vertebral body tenderness to palpation over C5 Facet loading test cervical area positive. Lumbar spine: Motor bulk/ tone/ strength lower extremities , thigh and legs : 5/5 Deep tendon reflexes : Normal Knee Jerk. Normal Ankle Jerk . Vertebral body tenderness to palpation over Lumbar Facet Loading Test positive Straight Leg Raise: positive at 30 degrees right side/ left side Gaenslen's Test positive Sacral spine : Severe tenderness over the Sacroiliac joint: right side / left side Range of motion: Flexion of the lumbar spine <60 degrees Range of motion: Extension of the lumbar spine <20 degrees Gaenslen's Test positive Chastity test: positive right side / left side Assessment and plan: Chronic neck pain secondary to cervical degenerative disc disease, spondylolisthesis, disc bulges, spinal stenosis and neuroforaminal stenoses Demonstration of manual cervical traction performed in exam room with positive results per pt. Will continue with PT and will follow up with his Orthopedic surgeon for additional treatment options. May return to our clinic on an as-needed basis. All patient questions answered MAPS reviewed and it was appropriate. I have spent 31 minutes on patient care today. Dr Burks was available by phone for the evaluation of this patient. The time was used to review the medical records including relevant urine studies and Prescription history (MAPs), review of the available imaging, evaluation and examination of the patient, coordination of care with the medical staff and if applicable referring physicians, as well as creation of the medical record PQRS Measure Charge Sheet PQRS Narrative: Smoking Status Never smoker Hx Alcohol Use (MH) Yes Home Medications: Ambulatory Orders Atorvastatin [Lipitor] 40 mg PO DAILY #30 tab 03/04/17 Clopidogrel [Plavix] 75 mg PO DAILY #30 tab 03/04/17 Aspirin 81 mg PO DAILY 02/24/21 Cholecalciferol [Vitamin D3 (25 Mcg = 1000 Iu)] 25 mcg PO DAILY 02/24/21 Metoprolol Tartrate [Lopressor] 12.5 mg PO DAILY 02/24/21 amLODIPine BESYLATE [Norvasc] 2.5 mg PO DAILY 03/09/21 Silodosin [Rapaflo] 8 mg PO HS 06/08/21 metFORMIN HCL 500 mg PO HS 06/08/21
[2021-11-05 10:01] VITALS: BP 117/81; PULSE 83; RESP 18; TEMP 98.1
== END ==
LOC: PNWHC3 07:52
PROVIDERS: ATTEND Specialist
DX: M50.30 Other cervical disc degeneration, unspecified cervical region (principal); M48.02 Spinal stenosis, cervical region; M43.12 Spondylolisthesis, cervical region; M50.20 Other cervical disc displacement, unspecified cervical region; G89.29 Other chronic pain
CPT/HCPCS: 99211

== ENCOUNTER → 2022-05-05 | Outpatient (CLI) | payer MEDICARE | END | disposition home or self-care (01) | LOC: LABT 09:57 | PROVIDERS: ATTEND Urology | DX: N40.1 Benign prostatic hyperplasia with lower urinary tract symptoms (principal) | CPT/HCPCS: 84153 ==

== ENCOUNTER → 2022-05-11 | Outpatient (CLI) | payer MEDICARE ==
--- NOTE | 2022-05-11 14:18 | P.SLEEP ---
History of Present Illness H&P Date: 05/11/22 pleasant 67-year-old male patient, was coming into the sleep center to be reevaluated for sleep apnea. The patient was diagnosed having obstructive sleep apnea more than 10 years ago. At that time, his study was done at [facility] or the [facility]. Back then, the patient was diagnosed having obstructive sleep apnea, moderate in severity and he was told that he has an apnea hypoxia index of 17. He was given a CPAP unit which is a ResMed S8 series along with a nasal pillow. He utilized the machine for a brief period of time and he ended up quitting the treatment. Over the years, he developed coronary artery disease and he underwent four-vessel bypass surgery. He used to work at [employer] and he retired from his work around 5 years ago. Since then the patient has gained around 25 pounds. The patient is coming in upon the request of family to be reevaluated for sleep apnea as his condition seems to have gotten worse where the patient has been noted to have loud snoring and witnessed apneas. At times, wakes up choking and gasping for air. His current Lindale score is at 6. He wakes up 3-4 AM in the morning and he goes to bed at around 9 PM. The wakes up frequently in the middle of the night and his sleep is quite fragmented. He takes occasional naps. No sleep paralysis. No hallucinations. No cataplexy. No restlessness in lower extremities. Review of Systems Constitutional: Reports daytime sleepiness, Reports fatigue, Reports weight gain Eyes: denies as per HPI, denies blurred vision, denies bulging eye, denies decreased vision, denies diplopia, denies discharge, denies dry eye, denies irritation, denies itching, denies pain, denies photophobia, denies loss of peripheral vision, denies loss of vision, denies tunnel vision/blind spots Ears: deny: decreased hearing, ear discharge, earache, tinnitus Ears, nose, mouth and throat: Reports as per HPI Breasts: absent: as per HPI, gynecomastia Cardiovascular: Reports as per HPI Respiratory: Reports as per HPI, Reports sleep apnea, Reports snoring Gastrointestinal: Reports as per HPI Genitourinary: Reports as per HPI Musculoskeletal: Reports as per HPI Musculoskeletal: absent: ankle pain, ankle stiffness, ankle swelling Integumentary: Reports as per HPI Neurological: Reports as per HPI Psychiatric: Reports as per HPI Endocrine: Reports as per HPI Hematologic/Lymphatic: Reports as per HPI Allergic/Immunologic: Reports allergic rhinitis Past Medical History Past Medical History: Coronary Artery Disease (CAD), Diabetes Mellitus, Hyperlipidemia, Hypertension, Prostate Disorder, Sleep Apnea/CPAP/BIPAP Additional Past Medical History / Comment(s): no CPAP use, degenerative arthritis, History of Any Multi-Drug Resistant Organisms: None Reported Past Surgical History: Coronary Bypass/CABG, Heart Catheterization, Orthopedic Surgery, Tonsillectomy Additional Past Surgical History / Comment(s): Right knee arthroscopy, colonoscopy, left rotator cuff repair, bilateral cataracts removed, pain clinic procedure. CABG 2017, Past Anesthesia/Blood Transfusion Reactions: No Reported Reaction Past Psychological History: No Psychological Hx Reported Smoking Status: Never smoker Past Alcohol Use History: Occasional Past Drug Use History: None Reported - Past Family History Mother Family Medical History: Cancer Additional Family Medical History / Comment(s): ovarian cancer Medications and Allergies Home Medications Medication Instructions Recorded Confirmed Type Atorvastatin [Lipitor] 40 mg PO DAILY #30 tab 03/04/17 11/05/21 Rx Clopidogrel [Plavix] 75 mg PO DAILY #30 tab 03/04/17 11/05/21 Rx Aspirin 81 mg PO DAILY 02/24/21 11/05/21 History Cholecalciferol [Vitamin D3 (25 25 mcg PO DAILY 02/24/21 11/05/21 History Mcg = 1000 Iu)] Metoprolol Tartrate [Lopressor] 12.5 mg PO DAILY 02/24/21 11/05/21 History amLODIPine BESYLATE [Norvasc] 2.5 mg PO DAILY 03/09/21 11/05/21 History Silodosin [Rapaflo] 8 mg PO HS 06/08/21 11/05/21 History metFORMIN HCL 500 mg PO HS 06/08/21 11/05/21 History Allergies Allergy/AdvReac Type Severity Reaction Status Date / Time No Known Allergies Allergy Verified 11/05/21 10:17 Physical Exam BP is 133/84, pulse is 80, respirations 16 and the patient has a pulse ox of 96% on room air oxygen. BMI is 34.1. Body weight is 245 pounds. Height is 5 feet and 11 inches. Neck size is 19 inches. His current Lindale score is at 6 Gen. appearance morbidly obese, comfortable no acute distress Head exam was generally normal. There was no scleral icterus or corneal arcus. Mucous membranes were moist. Neck was supple and without jugular venous distension, thyromegaly, or carotid bruits. Carotids were easily palpable bilaterally. There was no adenopathy. Mallampati class IV Lungs were clear to auscultation and percussion, and with normal diaphragmatic excursion. No wheezes or rales were noted. Cardiac exam revealed the PMI to be normally situated and sized. The rhythm was regular and no extrasystoles were noted during several minutes of auscultation. The first and second heart sounds were normal and physiologic splitting of the second heart sound was noted. There were no murmurs, rubs, clicks, or gallops. Sternotomy scar is dry clean and intact Abdominal exam revealed normal bowel sounds. The abdomen was soft, non-tender, and without masses, organomegaly, or appreciable enlargement of the abdominal aorta. Examination of the extremities revealed easily palpable radial, femoral and pedal pulses. There was no cyanosis, clubbing or edema. Examination of the skin revealed no evidence of significant rashes, suspicious appearing nevi or other concerning lesions. Neurologically, the patient is awake and alert and the patient does not have any focal neurological deficit. Cranial nerves are essentially intact. Assessment and Plan Plan: Impression Obstructive sleep apnea moderate to severe based on a previous sleep study that was done more than 10 years ago. He believes that his AHI was around 17. The patient has not utilized any CPAP therapy over the past 10 years and the patient is coming in for reevaluation. He has gained around 25 pounds over the past 5 years. He is still symptomatic regarding obstructive sleep apnea with sleep fragmentation chronic hypersomnia and Lindale score is currently at 6. The patient needs a reevaluation Coronary artery disease with diffuse redness surgery Obesity with a BMI of 34.1 Hypertension Coronary artery disease with previous coronary bypass surgery Chronic sinus ALLERGIES and the patient has used on her shots in the past Hyperlipidemia Plan The patient will obviously need a reevaluation. I'm going to set him up for home sleep study to evaluate the presence and severity obstructive sleep apnea. Accordingly, we'll decide on his treatment. Currently he has a ResMed CPAP unit S8 which is set at a pressure of 7 cm of water. The machine is functional. If needed, we may be able to use the same machine. We can also utilize and APAP machine on this patient, a new generation ResMed 11. The final decision will be made once the patient's home sleep study is completed. Encourage weight loss. Optimize sleep hygiene measures. We'll continue to follow. Sleep Note - Sleep Note Sleep Note: Temperature: Pulse Rate: Respiratory Rate: Blood Pressure: SpO2: Height: Weight: BMI: Neck Circumference:
== END ==
LOC: SLEEP 13:34
PROVIDERS: ATTEND Internal Medicine Critical Care Medicine
DX: G47.33 Obstructive sleep apnea (adult) (pediatric) (principal); E66.9 Obesity, unspecified; Z68.34 Body mass index [BMI] 34.0-34.9, adult; I25.10 Atherosclerotic heart disease of native coronary artery without angina pectoris; I10 Essential (primary) hypertension; E78.5 Hyperlipidemia, unspecified; Z98.890 Other specified postprocedural states; E11.9 Type 2 diabetes mellitus without complications; M19.90 Unspecified osteoarthritis, unspecified site; Z79.82 Long term (current) use of aspirin; Z79.84 Long term (current) use of oral hypoglycemic drugs
CPT/HCPCS: 99211

== ENCOUNTER 2022-07-28 09:23 | Day surgery (SDC) | payer MEDICARE ==
[~2022-07-28 09:23] MED LIST changes: +DEXAMETHASONE SOD PHOSPHATE 4 MG/ML 1 ML VIAL IV ONE; +DEXAMETHASONE SOD PHOSPHATE 4 MG/ML 1 ML VIAL IV PRN; +FAMOTIDINE 20 MG/2 ML VIAL IV PRN; +HYDROmorphone 0.5 MG/0.5 ML SYRINGE IVP PRN; +LIDOCAINE 1% (10MG/ML) FOR IV START INTRADERMA PRN; +MIDAZOLAM 2 MG/2 ML VIAL IV PRN; +ONDANSETRON 4 MG/2 ML VIAL IVP ONE; +ONDANSETRON 4 MG/2 ML VIAL IVP PRN
[2022-07-28] MEDS: OXYMETAZOLINE 0.05% NASL SPRAY 1 SPRAY BOTTLE EA NOSTRIL PRN ×5 (10:35→10:55)
[2022-07-28 10:43] VITALS: TEMP 97.8
[2022-07-28] MEDS ORDERED: METOPROLOL TARTRATE 12.5 MG TAB PO STA (11:37)
[2022-07-28] MEDS ORDERED: DEXAMETHASONE SOD PHOSPHATE 10 MG/ML 1 ML VIAL ONE (12:01)
[2022-07-28] MEDS ORDERED: SUCCINYLCHOLINE CHLORIDE 200 MG/10 ML VIAL IV ONE (12:01)
[2022-07-28] MEDS ORDERED: PROPOFOL 10 MG/ML 20 ML VIAL IV ONE (12:01)
[2022-07-28] MEDS ORDERED: MIDAZOLAM 2 MG/2 ML VIAL ONE (12:01)
[2022-07-28] MEDS ORDERED: LIDOCAINE 2% INJ 20 MG/ML (2 ML VIAL) ONE (12:01)
[2022-07-28] MEDS ORDERED: ROCURONIUM 10 MG/ML (5 ML VIAL) IV ONE (12:01)
[2022-07-28] MEDS ORDERED: NEOSTIGMINE 1 MG/ML 10 ML VIAL ONE (12:01)
[2022-07-28] MEDS ORDERED: fentaNYL (PF) 50 MCG/ML 2 ML AMP ONE (12:01)
[2022-07-28] MEDS ORDERED: GLYCOPYRROLATE 0.2 MG/ML 2 ML VIAL ONE (12:01)
[2022-07-28] MEDS ORDERED: LIDOCAINE 1%-EPI 1:100,000 20 ML VIAL SUBMUCOSAL ONE (12:26)
[2022-07-28] MEDS ORDERED: BACITRACIN ZINC 500 UNIT/GM OINT 28.4 GM TUBE TOPICAL ONE (12:26)
--- NOTE | 2022-07-28 12:45 | P.OP ---
Date of Procedure: 07/28/22 Preoperative Diagnosis: deviated nasal septum Inferior turbinate hypertrophy Postoperative Diagnosis: Same Procedure(s) Performed: Septoplasty Outfractured and submucous resection of the inferior turbinates Anesthesia: RAFAELAA Surgeon: Eddie Riddle Estimated Blood Loss (ml): 3 Pathology: other (Nasal septal bone and cartilage) Condition: stable Disposition: PACU Indications for Procedure: This 67-year-old white male with chronic nasal airway obstruction and congestion despite medical management Operative Findings: Nasal septum deviated to the right inferior turbinate hypertrophy bilateral Description of Procedure: DESCRIPTION OF PROCEDURE: The patient was brought to the operative suite, placed in the supine position. The patient underwent induction of general anesthesia with oral endotracheal intubation without difficulty. The patient was prepped and draped in the usual aseptic fashion. 1% lidocaine with 1:100,000 epinephrine was infused submucosally on both sides of the nasal septum. While this was taking vasoconstrictive effect, the inferior turbinates were infractured with a [place] elevator. Partial submucous resection of the inferior turbinates was performed with Coblation device ablating a portion of the submucosal soft tissue. The inferior turbinates were then outfractured with a [place] elevator. A left hemitransfixion incision was then made through the mucoperichondrial. Mucoperiosteal flap on the left elevated. Bony cartilaginous junction was disarticulated and mucoperiosteal flap on the right was elevated. Bony nasoseptal deformity were removed with Marylou forceps and an inferior cartilaginous strip was removed, leaving a full 1.5 cm caudal strut. Checking intranasally, this corrected the nasal septal deformities and the hemitransfixion incision was closed with running 4-0 chromic suture. The bilateral Philip airway splints coated in bacitracin ointment were placed in the nasal cavities and sutured transseptally with 4-0 nylon suture. The patient was then suctioned in an orogastric fashion. The patient was allowed to emerge from general anesthesia, having tolerated the procedure well and was extubated in the operating suite, transferred to postoperative recovery area in satisfactory condition.
[2022-07-28] MEDS ORDERED: hydrALAZINE HCL 20 MG/ML 1 ML VIAL ONE (14:46)
[2022-07-28] MEDS ORDERED: hydrALAZINE HCL 20 MG/ML 1 ML VIAL IVP ONE (14:49)
[2022-07-28 15:01] VITALS: BP 163/90; PULSE 83; RESP 17
== END 2022-07-28 15:30 | disposition home or self-care (01) ==
LOC: OR 09:23
PROVIDERS: ATTEND Otolaryngology
DX: J34.2 Deviated nasal septum (principal); J34.3 Hypertrophy of nasal turbinates; I25.10 Atherosclerotic heart disease of native coronary artery without angina pectoris; Z79.899 Other long term (current) drug therapy
CPT/HCPCS: 30520; 30140; J2250; J0330; J0360; J1100 ×2; J2710; J0690; J2405; J3010; J2704; J2001; 88300

== ENCOUNTER 2022-08-01 19:16 | Emergency (ER) | payer MEDICARE ==
[2022-08-01 19:29] VITALS: BP 141/78; PULSE 80; RESP 18; TEMP 98
--- NOTE | 2022-08-01 20:28 | XR ---
EXAMINATION TYPE: XR KUB DATE OF EXAM: 08/01/2022 8:21 PM INDICATION: Patient age:Male; 67 years old; Reason for study: constipation; PHH. COMPARISON: Chest x-ray 04/04/2017 TECHNIQUE: One radiographic view of the abdomen was obtained. FINDINGS: The bowel gas pattern is nonspecific without dilated loops of small or large bowel. There i s no evidence for pneumoperitoneum. The osseous structures are intact. Pelvic phleboliths are prese nt. Fractured sternotomy wire incidentally noted. IMPRESSION: Nonspecific bowel gas pattern without radiographic evidence for acute process.
[2022-08-01 20:55] LABS: Appearance,Urine Clear (Clear); Bilirubin,Urine Negative (Negative); Blood,Urine Moderate (Negative); Color,Urine Yellow; Glucose,Urine (UA) Negative (Negative); Ketones,Urine Negative (Negative); Leukocyte Esterase,Urine Negative (Negative); Mucus,Urine Rare /hpf; Nitrite,Urine Negative (Negative); PH, Urine 5.5 (5.0-8.0); Protein,Urine Trace (Negative); RBC,Urine 31 /hpf (0-5); Specific Gravity,Urine 1.021 (1.001-1.035); Urobilinogen,Urine <2.0 mg/dL (<2.0); WBC,Urine 3 /hpf (0-5)
--- NOTE | 2022-08-01 21:32 | ED ---
General Adult HPI - General Chief complaint: Recheck/Abnormal Lab/Rx Stated complaint: Difficulty Urinating,Constipation Time Seen by Provider: 08/01/22 19:40 Source: patient Mode of arrival: ambulatory Limitations: no limitations - History of Present Illness Initial comments: 67-year-old male had septoplasty on July 28. States that since his proce dure he has had difficulty urinating with minimal bowel movements. He does have a history of enlarged prostate and takes Flomax. Denies having issues with urinary retention the past. He took Dulcolax yesterday and did have a small amount of stool passage. Denies black or bloody stools. He admits to suprapubic discomfort. No nausea or vomiting. No fevers. Denies hematuria. He has been taking [place] since his procedure however he was not told to take a stool softener with the medication. Other alleviating, precipitating or modifying factors - Related Data Home Medications Medication Instructions Recorded Confirmed Aspirin 81 mg PO DAILY 02/24/21 07/28/22 Cholecalciferol [Vitamin D3 (25 25 mcg PO DAILY 02/24/21 07/28/22 Mcg = 1000 Iu)] Metoprolol Tartrate [Lopressor] 12.5 mg PO BID 02/24/21 07/28/22 amLODIPine BESYLATE [Norvasc] 2.5 mg PO DAILY 03/09/21 07/28/22 Silodosin [Rapaflo] 8 mg PO HS 06/08/21 07/28/22 Previous Rx's Medication Instructions Recorded Atorvastatin [Lipitor] 40 mg PO DAILY #30 tab 03/04/17 Clopidogrel [Plavix] 75 mg PO DAILY #30 tab 03/04/17 Docusate [Colace] 100 mg PO BID #30 capsule 08/01/22 polyethylene glycoL 3350 [Miralax] 17 gm PO DAILY #527 gm 08/01/22 Allergies Allergy/AdvReac Type Severity Reaction Status Date / Time No Known Allergies Allergy Verified 08/01/22 19:29 Review of Systems ROS Statement: Those systems with pertinent positive or pertinent negative responses have been documented in the HPI. ROS Other: All systems not noted in ROS Statement are negative. Past Medical History Past Medical History: Coronary Artery Disease (CAD), Hyperlipidemia, Hypertension, Prostate Disorder, Sleep Apnea/CPAP/BIPAP Additional Past Medical History / Comment(s): , degenerative arthritis, pt was taking metformin for wt loss has not taken in 6 months no dx of diabetes. cpap History of Any Multi-Drug Resistant Organisms: None Reported Past Surgical History: Coronary Bypass/CABG, Heart Catheterization, Orthopedic Surgery, Tonsillectomy Additional Past Surgical History / Comment(s): Right knee arthroscopy, co lonoscopy, left rotator cuff repair, bilateral cataracts removed, pain clinic procedure. CABG 2018, Nasal surgey Past Anesthesia/Blood Transfusion Reactions: No Reported Reaction Additional Past Anesthesia/Blood Transfusion Reaction / Comment(s): no blood transfusions Past Psychological History: No Psychological Hx Reported Smoking Status: Never smoker Past Alcohol Use History: Occasional Past Drug Use History: None Reported - Past Family History Mother Family Medical History: Cancer Additional Family Medical History / Comment(s): ovarian cancer Father Additional Family Medical History / Comment(s): in ICU organ failure General Exam Limitations: no limitations General appearance: alert, in no apparent distress Head exam: Present: atraumatic, normocephalic, normal inspection Eye exam: Present: normal appearance, PERRL, EOMI. Absent: scleral icterus, conjunctival injection, periorbital swelling ENT exam: Present: normal exam, mucous membranes moist Neck exam: Present: normal inspection. Absent: tenderness, meningismus, lymphadenopathy Respiratory exam: Present: normal lung sounds bilaterally. Absent: respiratory distress, wheezes, rales, rhonchi, stridor Cardiovascular Exam: Present: regular rate, normal rhythm, normal heart sounds. Absent: systolic murmur, diastolic murmur, rubs, gallop, clicks GI/Abdominal exam: Present: distended, tenderness (suprapubic), normal bowel sounds. Absent: guarding, rebound, rigid Extremities exam: Present: normal inspection, full ROM, normal capillary refill. Absent: tenderness, pedal edema, joint swelling, calf tenderness Back exam: Present: normal inspection Neurological exam: Present: alert, oriented X3, CN II-XII intact Psychiatric exam: Present: normal affect, normal mood Skin exam: Present: warm, dry, intact, normal color. Absent: rash Course Vital Signs 08/01/22 19:27 Temperature 98 F Pulse Rate 80 Respiratory 18 Rate Blood Pressure 141/78 O2 Sat by Pulse 95 Oximetry Medical Decision Making - Medical Decision Making Upon arrival patient was placed into room 15. A thorough history and physical exam was performed. Patient was bladder scanned does show a significant amount of urine in his bladder. Mao catheter was placed and we did receive approximately 1500 mL out. KUB unremarkable. Did discuss the treatment plan with the patient. He will need to Mao catheter in place for 1 week. Follow up with the urologist for removal. He is given a her prescription for MiraLAX and Colace to take to assist with his bowel movements. He needs to follow up with his primary care doctor and return for any new or worsening symptoms. Patient discharged home in stable condition - Lab Data Lab Results 08/01/22 Range/Units 20:40 Urine Color Yellow Urine Appearance Clear (Clear) Urine pH 5.5 (5.0-8.0) Ur Specific [place] 1.021 (1.001-1.035) Urine Protein Trace H (Negative) Urine Glucose (UA) Negative (Negative) Urine Ketones Negative (Negative) Urine Blood Moderate H (Negative) Urine Nitrite Negative (Negative) Urine Bilirubin Negative (Negative) Urine Urobilinogen <2.0 (<2.0) mg/dL Ur Leukocyte Esterase Negative (Negative) Urine RBC 31 H (0-5) /hpf Urine WBC 3 (0-5) /hpf Urine Mucus Rare H (None) /hpf Disposition Clinical Impression: Urinary retention, Constipation Disposition: HOME SELF-CARE Condition: Stable Instructions (If sedation given, give patient instructions): Urinary Retention in Men (ED) Additional Instructions: The catheter will need to stay in for 1 week. Take the Miralax and colace to help move your bowels. Follow up with the urology office to have the catheter removed. Let Dr. Araujo know before for your procedure. Return for any new or worsening symptoms Prescriptions: Docusate [Colace] 100 mg PO BID #30 capsule polyethylene glycoL 3350 [Miralax] 17 gm PO DAILY #527 gm Is patient prescribed a controlled substance at d/c from ED?: No Referrals: Valdo Orourke DO [Primary Care Provider] - 1-2 days Onel Bernal MD [STAFF PHYSICIAN] - 1-2 days Time of Disposition: 21:31
== END 2022-08-01 21:43 | disposition home or self-care (01) ==
LOC: EC 19:16
DX: K59.00 Constipation, unspecified (principal); R33.9 Retention of urine, unspecified; I25.10 Atherosclerotic heart disease of native coronary artery without angina pectoris; I10 Essential (primary) hypertension; G47.30 Sleep apnea, unspecified; E78.5 Hyperlipidemia, unspecified; Z79.82 Long term (current) use of aspirin; Z79.899 Other long term (current) drug therapy
CPT/HCPCS: 51702; 51798; 74018; 81001; 99284

== ENCOUNTER 2022-08-13 21:58 | Emergency (ER) | payer MEDICARE ==
[2022-08-13 22:03] VITALS: BP 150/85; PULSE 86; RESP 18; TEMP 97.6
--- NOTE | 2022-08-13 23:50 | ED ---
Male Urogenital HPI - General Chief complaint: Urogenital Stated complaint: blood in urine Time Seen by Provider: 08/13/22 23:29 Source: patient, RN notes reviewed Mode of arrival: ambulatory Limitations: no limitations - History of Present Illness Initial comments: This is a pleasant 67-year-old male who presents to the emergency department complaining of urinary retention plus hematuria. Patient states he had sinus surgery done on July 28. He states after having anesthesia he started having problems with urinary retention. Patient does have benign prostatic hypertrophy. Patient ended up having have a Mao catheter and then had that removed last Tuesday by Dr. Machado. Patient states he was sent home with a straight catheter by the urologist. Patient states he went home today after having a urology appointment. Patient was able to drain 500 mL of urine out of his bladder but then the next 2 times had some blood. Patient states he tried to straight cath again and was unable to get anything out other than what appeared to be a blood clot at the end of the catheter. No headache, no fever or chills, no changes in vision or hearing, no sore throat or difficulty with speech, no neck pain, no chest pain or shortness of breath, no abdominal pain, no nausea or vomiting, no changes bowel movements, no numbness or tingling, no extremity pain, no skin rashes or lesions. Past medical, surgical, social, and family history reviewed. - Related Data Home Medications Medication Instructions Recorded Confirmed Aspirin 81 mg PO DAILY 02/24/21 07/28/22 Cholecalciferol [Vitamin D3 (25 25 mcg PO DAILY 02/24/21 07/28/22 Mcg = 1000 Iu)] Metoprolol Tartrate [Lopressor] 12.5 mg PO BID 02/24/21 07/28/22 amLODIPine BESYLATE [Norvasc] 2.5 mg PO DAILY 03/09/21 07/28/22 Silodosin [Rapaflo] 8 mg PO HS 06/08/21 07/28/22 Previous Rx's Medication Instructions Recorded Atorvastatin [Lipitor] 40 mg PO DAILY #30 tab 03/04/17 Clopidogrel [Plavix] 75 mg PO DAILY #30 tab 03/04/17 Docusate [Colace] 100 mg PO BID #30 capsule 08/01/22 polyethylene glycoL 3350 [Miralax] 17 gm PO DAILY #527 gm 08/01/22 Nitrofurantoin Monohyd/M-Cryst 100 mg PO Q12HR #14 cap 08/14/22 [Macrobid] Allergies Allergy/AdvReac Type Severity Reaction Status Date / Time No Known Allergies Allergy Verified 08/13/22 22:02 Review of Systems ROS Statement: Those systems with pertinent positive or pertinent negative responses have been documented in the HPI. ROS Other: All systems not noted in ROS Statement are negative. Past Medical History Past Medical History: Coronary Artery Disease (CAD), Hyperlipidemia, Hypertension, Prostate Disorder, Sleep Apnea/CPAP/BIPAP Additional Past Medical History / Comment(s): , degenerative arthritis, pt was taking metformin for wt loss has not taken in 6 months no dx of diabetes. cpap History of Any Multi-Drug Resistant Organisms: None Reported Past Surgical History: Coronary Bypass/CABG, Heart Catheterization, Orthopedic Surgery, Tonsillectomy Additional Past Surgical History / Comment(s): Right knee arthroscopy, colonoscopy, left rotator cuff repair, bilateral cataracts removed, pain clinic procedure. CABG 2017, Nasal surgey Past Anesthesia/Blood Transfusion Reactions: No Reported Reaction Additional Past Anesthesia/Blood Transfusion Reaction / Comment(s): no blood transfusions Past Psychological History: No Psychological Hx Reported Smoking Status: Never smoker Past Alcohol Use History: Occasional Past Drug Use History: None Reported - Past Family History Mother Family Medical History: Cancer Additional Family Medical History / Comment(s): ovarian cancer Father Additional Family Medical History / Comment(s): in ICU organ failure General Exam Limitations: no limitations General appearance: alert, in no apparent distress Head exam: Present: atraumatic, normocephalic, normal inspection Eye exam: Present: normal appearance, PERRL, EOMI. Absent: scleral icterus, conjunctival injection, periorbital swelling ENT exam: Present: normal exam, mucous membranes moist Neck exam: Present: normal inspection. Absent: tenderness, meningismus, lymphad enopathy Respiratory exam: Present: normal lung sounds bilaterally. Absent: respiratory distress, wheezes, rales, rhonchi, stridor Cardiovascular Exam: Present: regular rate, normal rhythm, normal heart sounds. Absent: systolic murmur, diastolic murmur, rubs, gallop, clicks GI/Abdominal exam: Present: soft, normal bowel sounds. Absent: distended, tenderness, guarding, rebound, rigid exam: Present: normal inspection, vertical testicular lie, circumcision. Absent: testicular tenderness, urethral discharge, scrotal swelling Extremities exam: Present: normal inspection, full ROM, normal capillary refill. Absent: tenderness, pedal edema, joint swelling, calf tenderness Back exam: Present: normal inspection Neurological exam: Present: alert, oriented X3, CN II-XII intact Psychiatric exam: Present: normal affect, normal mood Skin exam: Present: warm, dry, intact, normal color. Absent: rash Course Vital Signs 08/13/22 22:00 Temperature 97.6 F Pulse Rate 86 Respiratory 18 Rate Blood Pressure 150/85 O2 Sat by Pulse 97 Oximetry - Reevaluation(s) Reevaluation #1: 08/14/22 01:20 Medical record is reviewed Symptoms are improved here in the emergency department Patient is informed of results and questions answered Patient in no distress Patient improved after Mao catheter placement. Initially draining blood which is now clearing. Medical Decision Making - Medical Decision Making Was pt. sent in by a medical professional or institution? @ -[no] Did you speak to anyone other than the patient for history? @ -[Spouse] Did you review nursing and triage notes? @ -agree Were old charts reviewed? @ -no Differential Diagnosis? @ -Urinary retention, urinary tract infection, hemorrhagic cystitis, hemorrhage related to self-catheterization, this is not a exhaustive list. What testing was considered but not performed? (CT, X-rays, U/S, labs)? Why? @ [I did consider bladder scan. However given the patient's symptomology we went ahead and ordered a Mao catheter placement as the patient was having a hard time self cathing at home.] What meds were considered but not given? Why? @ -[none] Did you discuss the management of the patient with other professionals? @ -ED attending physician. Did you reconcile home meds? @ -[none] Was smoking cessation discussed for >3mins.? @ -[none] Was critical care preformed (if so, how long)? @ -[none] Were there social determinants of health that impacted care today? How? (Homelessness, low income, unemployed, alcoholism, drug addiction, transportation, low edu. Level, literacy, decrease access to med. care, detention, rehab)? @ -None Was there de-escalation of care discussed even if they declined? (Discuss DNR or withdrawal of care, Hospice)? @ -no] What co-morbidities impacted this encounter? (DM, HTN, Smoking, COPD, CAD, Cancer, CVA, Hep., AIDS, mental health diagnosis, sleep apnea, morbid obesity)? @ -Benign prostatic hypertrophy. Was patient admitted / discharged? @ -We did insert a Mao catheter. I did check patient's laboratory work included a CBC and BMP to assess for renal function which was normal. Urinalysis did show a significant number of white blood cells per high-powered field. I'm going to cover the patient with antibiotics in the form of Macrobid. Patient sent home with a Mao catheter with instructions to follow-up with the urologist. He was understanding of this course of treatment. Note that the patient did admit to taking [id number] antihistamines. I told the patient to hold this for now. Undiagnosed new problem with uncertain prognosis? @ -[none] Drug Therapy requiring intensive monitoring for toxicity (Heparin, Nitro, Insulin, Cardizem)? @ -[none] Were any procedures done? @ -[none] Diagnosis/symptom? @ -Acute urinary retention, urinary tract infection Acute, or Chronic, or Acute on Chronic? @ -[Acute] Uncomplicated (without systemic symptoms) or Complicated (systemic symptoms)? @ -Uncomplicated Side effects of treatment? @ -[none] Exacerbation, Progression, or Severe Exacerbation] @ -[no] Poses a threat to life or bodily function? @ -Unlikely Patient was told to return to the ER for any signs or symptoms worsen. Told to return immediately if any other problems arise. All questions answered. Treatment plan discussed. Patient in agreement Every effort has been made to ensure accuracy of this dictation. However, due to the limitations of electronic medical records and dictation devices, errors in charting still occur. Supervising physician Dr. Valadez - Lab Data Result diagrams: 08/14/22 23:59 08/14/22 23:59 Lab Results 08/13/22 08/14/22 08/14/22 Range/Units 23:59 23:59 23:59 WBC 10.2 (3.8-10.6) k/uL RBC 4.98 (4.30-5.90) m/uL Hgb 15.3 (13.0-17.5) gm/dL Hct 44.0 (39.0-53.0) % MCV 88.3 (80.0-100.0) fL MCH 30.8 (25.0-35.0) pg MCHC 34.9 (31.0-37.0) g/dL RDW 12.3 (11.5-15.5) % Plt Count 320 (150-450) k/uL MPV 8.2 Neutrophils % 66 % Lymphocytes % 20 % Monocytes % 6 % Eosinophils % 5 % Basophils % 1 % Neutrophils # 6.8 (1.3-7.7) k/uL Lymphocytes # 2.0 (1.0-4.8) k/uL Monocytes # 0.6 (0-1.0) k/uL Eosinophils # 0.5 (0-0.7) k/uL Basophils # 0.1 (0-0.2) k/uL Sodium 138 (137-145) mmol/L Potassium 4.2 (3.5-5.1) mmol/L Chloride 106 (98-107) mmol/L Carbon Dioxide 23 (22-30) mmol/L Anion Gap 9 mmol/L BUN 22 H (9-20) mg/dL Creatinine 1.01 (0.66-1.25) mg/dL Est GFR (CKD-EPI)AfAm 88 (>60 ml/min/1.73 sqM) Est GFR (CKD-EPI)NonAf 76 (>60 ml/min/1.73 sqM) Glucose 113 H (74-99) mg/dL Calcium 8.7 (8.4-10.2) mg/dL Urine Color Red Urine Appearance Bloody (Clear) Urine RBC >182 H (0-5) /hpf Urine WBC >182 H (0-5) /hpf Urine WBC Clumps Many H (None) /hpf Disposition Clinical Impression: Acute urinary retention, Urinary tract infection Narrative: History of BPH Disposition: HOME SELF-CARE Condition: Good Instructions (If sedation given, give patient instructions): Urinary Retention in Men (ED), Urinary Tract Infection in Men (ED), Mao Catheter Placement and Care (ED) Additional Instructions: Follow-up with your regular physician as directed. Return to the ER immediately if any symptoms worsen, new symptoms arise, or any other problems develop. Call the urologist tomorrow to schedule follow-up appointment. Take the antibiotics as directed. Prescriptions: Nitrofurantoin Monohyd/M-Cryst [Macrobid] 100 mg PO Q12HR #14 cap Is patient prescribed a controlled substance at d/c from ED?: No Referrals: Valdo Orourke DO [Primary Care Provider] - 1-2 days Jose Machado MD [STAFF PHYSICIAN] - 1-2 days Time of Disposition: 01:21
[2022-08-14 00:14] LABS: Basophils # (A) 0.1 k/uL (0-0.2); Basophils % (A) 1 %; Eosinophils # (A) 0.5 k/uL (0-0.7); Eosinophils % (A) 5 %; HGB 15.3 gm/dL (13.0-17.5); Lymphocytes % (A) 20 %; MCH 30.8 pg (25.0-35.0); MCHC 34.9 g/dL (31.0-37.0); MCV 88.3 fL (80.0-100.0); Mean Platelet Volume 8.2; Monocytes # (A) 0.6 k/uL (0-1.0); Monocytes % (A) 6 %; Neutrophils # (A) 6.8 k/uL (1.3-7.7); Neutrophils % (A) 66 %; Platelet Count 320 k/uL (150-450); RBC 4.98 m/uL (4.30-5.90); RDW 12.3 % (11.5-15.5); WBC 10.2 k/uL (3.8-10.6)
[2022-08-14 00:24] LABS: Calcium 8.7 mg/dL (8.4-10.2); Potassium 4.2 mmol/L (3.5-5.1)
[2022-08-14 00:30] LABS: RBC,Urine >182 /hpf (0-5); WBC,Urine >182 /hpf (0-5)
[2022-08-14 00:31] LABS: Appearance,Urine Bloody (Clear)
[2022-08-14 00:32] LABS: Color,Urine Red
[2022-08-14] MEDS ORDERED: NITROFURANTOIN MONOHYD/M-CRYST 100 MG CAP PO STA (01:19)
== END 2022-08-14 02:00 | disposition home or self-care (01) ==
LOC: EC 21:58
DX: N39.0 Urinary tract infection, site not specified (principal); I11.9 Hypertensive heart disease without heart failure; I25.10 Atherosclerotic heart disease of native coronary artery without angina pectoris; G47.30 Sleep apnea, unspecified; Z79.82 Long term (current) use of aspirin; Z79.899 Other long term (current) drug therapy
CPT/HCPCS: 36415; 51702; 80048; 81001; 85025; 87086; 99283

== ENCOUNTER 2022-08-14 05:02 | Emergency (ER) | payer MEDICARE ==
[2022-08-14 05:06] VITALS: BP 114/77; PULSE 100; RESP 20; TEMP 98
--- NOTE | 2022-08-14 06:02 | ED ---
Male Urogenital HPI - General Chief complaint: Urogenital Stated complaint: blood in urine, revisit Time Seen by Provider: 08/14/22 05:56 Source: patient, family, RN notes reviewed Mode of arrival: ambulatory Limitations: no limitations - History of Present Illness Initial comments: This is a 67-year-old male who presents to the emergency department for problems with his Morris catheter. Patient was here last night for urinary retention and subsequently had a Morris catheter placed, which he has had before. He was also given a prescription for Macrobid. Several hours after going home, he noticed that the Morris catheter was not draining. He subsequently developed abdominal pain/pressure as a result of the urinary retention. He does plan on calling the urology office on Tuesday for a follow-up appointment. Denies any fevers, chills, sore throat, cough, dyspnea, chest pain, palpitations, nausea, vomiting, diarrhea, back pain, or headaches. MD Complaint: other (morris catheter not draining) - Related Data Home Medications Medication Instructions Recorded Confirmed Aspirin 81 mg PO DAILY 02/24/21 07/28/22 Cholecalciferol [Vitamin D3 (25 25 mcg PO DAILY 02/24/21 07/28/22 Mcg = 1000 Iu)] Metoprolol Tartrate [Lopressor] 12.5 mg PO BID 02/24/21 07/28/22 amLODIPine BESYLATE [Norvasc] 2.5 mg PO DAILY 03/09/21 07/28/22 Silodosin [Rapaflo] 8 mg PO HS 06/08/21 07/28/22 Previous Rx's Medication Instructions Recorded Atorvastatin [Lipitor] 40 mg PO DAILY #30 tab 03/04/17 Clopidogrel [Plavix] 75 mg PO DAILY #30 tab 03/04/17 Docusate [Colace] 100 mg PO BID #30 capsule 08/01/22 polyethylene glycoL 3350 [Miralax] 17 gm PO DAILY #527 gm 08/01/22 Nitrofurantoin Monohyd/M-Cryst 100 mg PO Q12HR #14 cap 08/14/22 [Macrobid] Allergies Allergy/AdvReac Type Severity Reaction Status Date / Time No Known Allergies Allergy Verified 08/14/22 05:06 Review of Systems ROS Statement: Those systems with pertinent positive or pertinent negative responses have been documented in the HPI. ROS Other: All systems not noted in ROS Statement are negative. Past Medical History Past Medical History: Coronary Artery Disease (CAD), Hyperlipidemia, Hypertension, Prostate Disorder, Sleep Apnea/CPAP/BIPAP Additional Past Medical History / Comment(s): , degenerative arthritis, pt was taking metformin for wt loss has not taken in 6 months no dx of diabetes. cpap History of Any Multi-Drug Resistant Organisms: None Reported Past Surgical History: Coronary Bypass/CABG, Heart Catheterization, Orthopedic Surgery, Tonsillectomy Additional Past Surgical History / Comment(s): Right knee arthroscopy, colonoscopy, left rotator cuff repair, bilateral cataracts removed, pain clinic procedure. CABG 2018, Nasal surgey Past Anesthesia/Blood Transfusion Reactions: No Reported Reaction Additional Past Anesthesia/Blood Transfusion Reaction / Comment(s): no blood transfusions Past Psychological History: No Psychological Hx Reported Smoking Status: Never smoker Past Alcohol Use History: Occasional Past Drug Use History: None Reported - Past Family History Mother Family Medical History: Cancer Additional Family Medical History / Comment(s): ovarian cancer Father Additional Family Medical History / Comment(s): in ICU organ failure General Exam Limitations: no limitations General appearance: alert, in no apparent distress Head exam: Present: atraumatic, normocephalic, normal inspection Respiratory exam: Present: normal lung sounds bilaterally. Absent: respiratory distress, wheezes, rales, rhonchi, stridor Cardiovascular Exam: Present: regular rate, normal rhythm, normal heart sounds. Absent: systolic murmur, diastolic murmur, rubs, gallop, clicks GI/Abdominal exam: Present: soft, normal bowel sounds. Absent: distended, tenderness, guarding, rebound, rigid exam: Present: normal inspection. Absent: testicular tenderness, urethral discharge Neurological exam: Present: alert, oriented X3, CN II-XII intact Psychiatric exam: Present: normal affect, normal mood Skin exam: Present: warm, dry, intact, normal color. Absent: rash Course Vital Signs 08/14/22 05:04 Temperature 98 F Pulse Rate 100 Respiratory 20 Rate Blood Pressure 114/77 O2 Sat by Pulse 99 Oximetry Medical Decision Making - Medical Decision Making This is a 67-year-old male who presents to the emergency department for problems with his Morris catheter. Was pt. sent in by a medical professional or institution? @ -No Did you speak to anyone other than the patient for history? @ -His Did you review nursing and triage notes? @ -Agree, accurate with regards to the patient's symptoms. Were old charts reviewed? @ -No Differential Diagnosis? @ -Urinary tract infection, blockage, incorrect insertion, constipation, and bypassing urine. What testing was considered but not performed? (CT, X-rays, U/S, labs)? Why? @ None What meds were considered but not given? Why? @ None Did you discuss the management of the patient with other professionals? @ -No Did you reconcile home meds? @ -No Was smoking cessation discussed for >3mins.? @ -No Was critical care preformed (if so, how long)? @ -No Were there social determinants of health that impacted care today? How? (Homelessness, low income, unemployed, alcoholism, drug addiction, transportation, low edu. Level, literacy, decrease access to med. care, long term, rehab)? @ -No Was there de-escalation of care discussed even if they declined? (Discuss DNR or withdrawal of care, Hospice)? @ -No What co-morbidities impacted this encounter? (DM, HTN, Smoking, COPD, CAD, Cancer, CVA, Hep., AIDS, mental health diagnosis, sleep apnea, morbid obesity)? @ -BPH Was patient admitted / discharged? @ -Discharged. The patient had his Morris catheter flushed and multiple clots were removed. The Morris catheter subsequently started draining again and he noted almost instant relief of abdominal pain/pressure. However, shortly afterwards, the Morris catheter started to develop clots again. His catheter subsequently changed to a 20fr to offer more room for the clots the past. The RN educated the patient and his on how to flush his catheter at home if this recurs again. He was noted to have hematuria, which we discussed may be related to urethral or bladder trauma from the catheter itself such as tears or abrasions. He was advised to contact urology on Tuesday (08/16) for a sooner follow-up appointment. He is also instructed to update them on the status of the hematuria. He was already prescribed Macrobid last night and I advised that he pick this up later today to begin taking it. Drug Therapy requiring intensive monitoring for toxicity (Heparin, Nitro, Insulin, Cardizem)? @ -None Were any procedures done? @ -None Diagnosis/symptom? @ -Morris catheter complication Acute, or Chronic, or Acute on Chronic? @ -Acute Uncomplicated (without systemic symptoms) or Complicated (systemic symptoms)? @ -Complicated in terms of the abdominal pain Side effects of treatment? @ -None Exacerbation, Progression, or Severe Exacerbation] @ -Not applicable Poses a threat to life or bodily function? @ -If this becomes clogged again and is not flushed, it can become a much more complicated issue in terms of bladder injury. The associated abdominal pain can also impact bodily function. Diagnosis/symptom? @ -Hematuria Acute, or Chronic, or Acute on Chronic? @ -acute Uncomplicated (without systemic symptoms) or Complicated (systemic symptoms)? @ -uncomplicated Side effects of treatment? @ -Unclear, we are not treating the hematuria directly and the cause is not entirely clear. Exacerbation, Progression, or Severe Exacerbation] @ -Not applicable. Poses a threat to life or bodily function? @ -This will depend on the cause of the hematuria, but at this time, it does not appear to be posing a threat. Return precautions reviewed in depth, the patient is instructed to return to the emergency department with any new, worsening, or concerning symptoms. Patient verbalized understanding. This case was discussed in detail with the attending ED physician. Presentation, findings, and treatment plan discussed in detail as well. - Lab Data Lab Results 08/14/22 Range/Units 06:25 Urine Color Red Urine Appearance Bloody (Clear) Urine RBC >182 H (0-5) /hpf Urine WBC >182 H (0-5) /hpf Urine WBC Clumps Many H (None) /hpf Disposition Clinical Impression: Urinary catheter dysfunction Disposition: HOME SELF-CARE Instructions (If sedation given, give patient instructions): Morris Catheter Placement and Care (ED) Additional Instructions: Return to the emergency department with any new, worsening, or concerning symptoms, especially if the bag is not draining after trying to flush it on your own or you develop abdominal pain. Make sure that you flush the catheter regularly to remove the clots. Follow up with your primary care provider in 1-2 days and contact the urology office on Tuesday. Is patient prescribed a controlled substance at d/c from ED?: No Referrals: Valdo Orourke DO [Primary Care Provider] - 1-2 days
[2022-08-14] MEDS ORDERED: LIDOCAINE 2% URO-JET JELLY 5 ML KIT URETHRAL ONE (06:57)
[2022-08-14 07:06] LABS: RBC,Urine >182 /hpf (0-5); WBC,Urine >182 /hpf (0-5)
[2022-08-14 07:07] LABS: Appearance,Urine Bloody (Clear); Color,Urine Red
== END 2022-08-14 10:39 | disposition home or self-care (01) ==
LOC: EC 05:02
DX: T83.091A Other mechanical complication of indwelling urethral catheter, initial encounter (principal); I25.10 Atherosclerotic heart disease of native coronary artery without angina pectoris; E78.5 Hyperlipidemia, unspecified; I10 Essential (primary) hypertension; Z79.82 Long term (current) use of aspirin; Z79.899 Other long term (current) drug therapy
CPT/HCPCS: 81001; 99283

== ENCOUNTER → 2022-08-24 | Outpatient (CLI) | payer MEDICARE ==
--- NOTE | 2022-08-24 15:47 | P.PN ---
Progress Note - Text Progress Note Date: 08/24/22 67-year-old male patient diagnosed having obstructive sleep apnea coming in for a follow-up. The patient was diagnosed having SCOTTY more than 10 years ago and at that time the patient had mild to moderate disease with an AHI of 17. He came to me for another sleep evaluation of the patient was diagnosed having worsening his sleep apnea and his AHI was up to 38 based on a home study that was done on 05/26/2022. Noted the patient gained weight in order of 25 pounds. Accordingly, the patient was given a APAP unit with a minimum pressure of 5 and a maximum of 15 through a newer generation ResMed 11 CPAP unit. I am performing a compliancy evaluation of this patient. The patient reports marked improvement in his symptoms and his sleep quality is is improved significantly while on treatment. Based on a 30 day compliancy data collection that was done between 07/25/2022 and 08/23/2021, the patient has used his machine 23 out of 30 days, 77%. The patient has achieved more than 4 hours of usage around 63% of the time and is compliancy continues to improve. Noted. Some interruption of treatment as the patient underwent a surgery on his nose that was complicated by development of urinary retention, requiring Mao catheter insertion. In general, his been averaging around 5 hours of 49 minutes of CPAP use per night, his humidity is automatic. His temperature is set at 64F. His average pressure delivered by the machine is around 9.4 cm. Leak is in order of 18 L/m. AHI is down to 1.5. The patient has no other complaints. He is using an Airfit F20 fullface mask. His weight has remained stable. He is tolerating the treatment and is committed to long-term CPAP therapy His current vitals his blood pressure is 126/75 with a pulse of 78 and a respiration of 18 and the temperature is 90.8F. The patient's [place] score is at 6. Weight is 245 pounds. The patient appeared well nourished and normally developed. Vital signs as documented. Head exam is unremarkable. No scleral icterus or corneal arcus noted. Neck is without jugular venous distension, thyromegaly, or carotid bruits. Carotid upstrokes are brisk bilaterally. Lungs are clear to auscultation and percussion. Cardiac exam reveals the PMI to be normally sized and situated. Rhythm is regular. First and second heart sounds normal. No murmurs, rubs or gallops. Abdominal exam reveals normal bowel sounds, no masses, no organomegaly and no aortic enlargement. Extremities are nonedematous and both femoral and pedal pulses are normal.Examination of the skin revealed no evidence of significant rashes, suspicious appearing nevi or other concerning lesions.Neurologically, the patient is awake and alert and the patient does not have any focal neurological deficit. Cranial nerves are essentially intact. Impression Severe SCOTTY with an AHI of 38, undergoing successful CPAP therapy with an APAP machine pressures minimum of 5 and a maximum of 15 and the patient is using an Airfit F20 fullface mask. Hypersomnia, improved secondary to above Nasoseptal deviation post correction BPH with obstructive uropathy and the patient has a Mao catheter in place under the care of urology Chronic sinus disease with chronic ALLERGIC rhinitis Hypertension Cornea artery disease Plan Compliancy check was done and the treatment is very appropriate Encourage weight loss Continue CPAP therapy Keep same mask interface Encourage weight loss Activate EPR Maintain a temperature of 64F Follow-up with urology See me back in one year
== END ==
LOC: SLEEP 15:15
PROVIDERS: ATTEND Internal Medicine Critical Care Medicine
DX: G47.33 Obstructive sleep apnea (adult) (pediatric) (principal); I10 Essential (primary) hypertension; I25.10 Atherosclerotic heart disease of native coronary artery without angina pectoris; J30.9 Allergic rhinitis, unspecified; N40.1 Benign prostatic hyperplasia with lower urinary tract symptoms; N13.8 Other obstructive and reflux uropathy; Z98.890 Other specified postprocedural states; J34.2 Deviated nasal septum; Z99.89 Dependence on other enabling machines and devices
CPT/HCPCS: 99212

== ENCOUNTER → 2023-03-26 | Outpatient (CLI) | payer MEDICARE ==
[2023-03-26 13:35] LABS: ALT 33 U/L (10-49); AST 19 U/L (14-35); Chol/HDL Ratio 3.08 Ratio; LDL Cholesterol,Calculated 61.2 mg/dL (0.0-131.0); VLDL Calculation 17.82 mg/dL (5.00-40.00)
== END | disposition home or self-care (01) ==
LOC: LABWHC1 08:21
PROVIDERS: ATTEND Internal Medicine Interventional Cardiology
DX: E78.2 Mixed hyperlipidemia (principal)
CPT/HCPCS: 36415; 80061; 84450; 84460

== ENCOUNTER → 2023-09-05 | Outpatient (CLI) | payer MEDICARE ==
[2023-09-05 12:31] LABS: African American GFR (CKD) >90 (>60 ml/min/1.73 sqM); Blood Urea Nitrogen 20 mg/dL (9-20); Non-African American GFR(CKD) 82 (>60 ml/min/1.73 sqM)
--- NOTE | 2023-09-05 13:21 | CT ---
EXAMINATION TYPE: CT brain w con DATE OF EXAM: 09/05/2023 COMPARISON: None INDICATION: multiple syncopal episodes DLP: 1081.6 mGycm, Automated exposure control for dose reduction was used. CONTRAST: 100 mL Isovue-300 CT of the brain is performed utilizing 3 mm thick sections through the posterior fossa and 3 mm thick sections through the remaining calvarium. Study is performed within 24 hours of arrival to the hosp ital. No abnormal hyperdensity is present to suggest an acute intracranial hemorrhage. No mass lesion is evident. There is large calcification along the right falx could be a burned out me ningioma. No acute infarcts are evident. No suspicious enhancement is evident. Ventricles and sulci are appropriate for the patient age. Paranasal sinuses and mastoid air cells within the [id number] are clear. IMPRESSION: 1. No acute intracranial process. 2. Large calcification along the falx could be related to meningioma.
== END | disposition home or self-care (01) ==
LOC: RADCTMAIN 12:00
PROVIDERS: ATTEND Family Medicine
DX: G96.198 Other disorders of meninges, not elsewhere classified (principal); R55 Syncope and collapse; R06.02 Shortness of breath
CPT/HCPCS: 82565; 84520; 70460; 36415; Q9967

== ENCOUNTER → 2023-09-22 | Outpatient (CLI) | payer MEDICARE ==
[2023-09-22 11:44] LABS: HCT 47.9 % (39.6-50.0); HGB 15.5 g/dL (13.0-17.0); MCH 29.8 pg (27.0-32.0); MCHC 32.4 g/dL (32.0-37.0); MCV 92.1 FL (80.0-97.0); Mean Platelet Volume 11.6 FL (9.5-12.2); NRBC Per 100 WBC 0 X 10*3/uL (0.00-0.01); Platelet Count 234 X 10*3/uL (140-440); RDW 13.4 % (11.5-14.5); WBC 7.54 X 10*3/uL (4.50-10.00)
[2023-09-22 12:04] LABS: Blood Urea Nitrogen 14.3 mg/dL (9.0-27.0); Chloride 103 mmol/L (96-109); Potassium 4.6 mmol/L (3.5-5.5); Sodium 142 mmol/L (135-145)
== END | disposition home or self-care (01) ==
LOC: LABPAT 07:24
PROVIDERS: ATTEND Internal Medicine Interventional Cardiology
DX: Z01.812 Encounter for preprocedural laboratory examination (principal); I25.10 Atherosclerotic heart disease of native coronary artery without angina pectoris
CPT/HCPCS: 36415; 80051; 82565; 84520; 85027

== ENCOUNTER 2023-09-27 09:42 | Day surgery (SDC) | payer MEDICARE ==
[~2023-09-27 09:42] MED LIST changes: +ALPRAZolam 0.25 MG TAB PO PRN; +ALPRAZolam 0.5 MG TAB PO PRN; -DEXAMETHASONE SOD PHOSPHATE 4 MG/ML 1 ML VIAL IV ONE; -DEXAMETHASONE SOD PHOSPHATE 4 MG/ML 1 ML VIAL IV PRN; -FAMOTIDINE 20 MG/2 ML VIAL IV PRN; +HEPARIN SODIUM,PORCINE (1 ML) 2,500 UNIT in SODIUM CHLORIDE 0.9% 250 ML IRRIGATION PRN; +HEPARIN SODIUM,PORCINE 10,000 UNIT in SODIUM CHLORIDE 0.9% 1,000 ML IRRIGATION PRN; -HYDROmorphone 0.5 MG/0.5 ML SYRINGE IVP PRN; -LACTATED RINGERS 1,000 ML IV SCH; -LIDOCAINE 1% (10MG/ML) FOR IV START INTRADERMA PRN; -MIDAZOLAM 2 MG/2 ML VIAL IV PRN; +NITROGLYCERIN SL TABS 0.4 MG TAB SUBLINGUAL PRN; -ONDANSETRON 4 MG/2 ML VIAL IVP ONE; -ONDANSETRON 4 MG/2 ML VIAL IVP PRN
[2023-09-27] MEDS: SODIUM CHLORIDE 0.9% 1,000 ML IV ONE (09:57)
[2023-09-27] MEDS ORDERED: LIDOCAINE 1% INJ 10MG/ML (20 ML MDV) ONE (12:55)
[2023-09-27] MEDS: MIDAZOLAM 2 MG/2 ML VIAL IVP ONE (13:15)
[2023-09-27] MEDS ORDERED: HEPARIN SODIUM 1,000 UN/ML (10ML VL) ONE (13:39)
[2023-09-27] MEDS: HEPARIN SODIUM 1,000 UN/ML (10ML VL) IVP ONE (13:41)
[2023-09-27] MEDS: IOPAMIDOL-370 100ML BTL INJ ONE ×2 (13:54)
[2023-09-27] MEDS ORDERED: ZOLPIDEM 5 MG TAB PO PRN (14:02)
[2023-09-27] MEDS ORDERED: ATROPINE SULFATE 0.1 MG/ML 10ML SYRINGE IV PRN (14:02)
[2023-09-27] MEDS ORDERED: MAG HYDROX/AL HYDROX/SIMETH 30 ML CUP PO PRN (14:02)
[2023-09-27] MEDS ORDERED: RX INFO: IV CONTRAST WAS GIVEN 1 EACH MISC MISCELLANE PRN (14:02)
[2023-09-27] MEDS ORDERED: NITROGLYCERIN SL TABS 0.4 MG TAB SUBLINGUAL PRN (14:02)
[2023-09-27] MEDS: ATORVASTATIN 80 MG TAB PO ONE (14:49)
[2023-09-27] MEDS: ASPIRIN 325 MG TAB PO ONE (14:49)
[2023-09-27] MEDS: SODIUM CHLORIDE 0.9% 1,000 ML in EMPTY BAG 1 BAG IV SCH ×2 (14:49→15:00)
[2023-09-27 15:11] VITALS: BMI 33.3
[2023-09-27] MEDS: TAMSULOSIN 0.4 MG CAP.ER.24H PO SCH (19:55)
[2023-09-27] MEDS: CHOLECALCIFEROL 25 MCG (1000 IU) TABLET PO SCH (19:55)
--- NOTE | 2023-09-27 20:38 | P.PCN ---
Date of Procedure: 09/27/23 Operative Findings: CARDIAC CATHETERIZATION AND PERCUTANEOUS CORONARY INTERVENTION PERFORMING PHYSICIAN: Reinaldo Frias MD, [facility] PROCEDURE PERFORMED: 1. Selective right and left coronary angiogram 2. SOSA to LAD angiogram, SVG to diagonal program, SVG to PDA and SVG to be LV angiogram 3. Successful stenting of the midright coronary artery using 4.5 x 15 mm Xience DESI with an excellent angiographic results and with adjunctive use of endovascular imaging 4. Left heart catheterization 5. Selective right common femoral artery angiogram and ultrasound-guided access of the right common femoral artery INDICATION: Syncopal episode concerning of cardiac etiology Chest discomfort concerning for angina COMPLICATION: None APPROACH: Right common femoral artery LEVEL OF SEDATION: Moderate with the sedation time off 48 minutes PROCEDURE DESCRIPTION: After obtaining an informed consent the patient was brought to the cardiac clinical genetics laboratory chief.. The right common femoral artery was cannulated using micropuncture technique under ultrasound guidance the micropuncture wire passed easily then I placed a 6-Danish 11 cm sheath in the right common femoral artery. Selective right and left coronary angiogram performed using JR4 and JL4 catheters. Left heart catheterization was performed using 6-Danish pigtail catheter. SOSA to LAD angiogram and SVG to diagonal angiogram performed using the JR4 catheter. SVG PDA and PLV angiogram performed using Artis Morales catheter. After that I did intervene on the SELECTIVE CORONARY ANGIOGRAM: The right coronary artery: Large caliber vessel and a dominant vessel with critical disease in the midportion and intermediate disease involving the proximal portion and distal portion by the bifurcation Left main: Has mild disease on. Bifurcates into an LCx and LAD The left circumflex: Large caliber vessel with mild disease only The left anterior descending artery: The proximal LAD has mild to moderate disease. If psoriasis into a large diagonal branch which has long severe tubular lesion. The LAD in the midportion is occluded HEMODYNAMICS: The LVEDP was 13 mmHg was no significant gradient across aortic valve PCI OF THE RCA: Anticoagulation was initiated using heparin with continuous ACT monitoring. After that I did engage the RCA using JR4 guiding catheter. I did wired using run-through wire. Intravascular ultrasound was performed and showed soft lesion in the midportion with a diameter of the RCA about 4.5 mm. Predilation was performed using 3.5 mm noncompliant balloon and subsequently I deployed a 4.5 x 15 mm stent and a 12 trixie for 20 seconds when endovascular imaging showed that the stent was well opposed and well expanded and an angiogram finally was performed showed excellent angiographic results and the procedure was completed with no complication. CONCLUSION: - Occluded LAD in the midportion. SOSA to LAD is patent. Severe disease involving large and protected diagonal branch with occluded SVG to the diagonal - Mild to moderate disease involving the left circumflex coronary artery - Critical disease involving the mid RCA. Occluded SVG PDA and PLV of RCA - Successful stenting of the RCA as described above POSTPROCEDURE MANAGEMENT: 1. Dual antiplatelet therapy using aspirin and Plavix for at least 6 month 2. Aggressive cholesterol control 3. Follow-up with the patient
[2023-09-28 04:37] LABS: African American GFR (CKD) >90 (>60 ml/min/1.73 sqM); Non-African American GFR(CKD) 89 (>60 ml/min/1.73 sqM)
[2023-09-28 08:33] VITALS: BP 120/76; PULSE 87; RESP 16; TEMP 97.8
[2023-09-28] MEDS: amLODIPine 2.5 MG TAB PO SCH (08:50)
[2023-09-28] MEDS: ASPIRIN 81 MG PO SCH (08:50)
[2023-09-28] MEDS: FUROSEMIDE 20 MG TAB PO SCH (08:50)
[2023-09-28] MEDS: CLOPIDOGREL 75 MG TAB PO SCH (08:51)
[2023-09-28] MEDS: ATORVASTATIN 40 MG TAB PO SCH (08:51)
[2023-09-28] MEDS ORDERED: CLOPIDOGREL 75 MG TAB PO SCH (09:00)
== END 2023-09-28 09:39 | disposition home or self-care (01) ==
LOC: CATHCVL 09:42 → 6NMEDSUR 13:55 → CATHCVL 09-28 09:39
PROVIDERS: ATTEND Internal Medicine Interventional Cardiology
DX: I25.810 Atherosclerosis of coronary artery bypass graft(s) without angina pectoris (principal); I10 Essential (primary) hypertension; E78.5 Hyperlipidemia, unspecified; Z79.82 Long term (current) use of aspirin; Z79.899 Other long term (current) drug therapy; Z95.5 Presence of coronary angioplasty implant and graft
CPT/HCPCS: 94760; 92978; 93459; 76937; 82565; C9600; C1760; C1887; C1769 ×3; C1894; C1753; C1874; C1725; J2250; J1644; Q9967

== ENCOUNTER → 2024-04-18 | Outpatient (CLI) | payer MEDICARE ==
[2024-04-18 19:54] LABS: ALT 38 U/L (10-49); AST 25 U/L (14-35); Chol/HDL Ratio 2.76 Ratio
== END | disposition home or self-care (01) ==
LOC: LABWHC1 12:34
PROVIDERS: ATTEND Internal Medicine Interventional Cardiology
DX: E78.2 Mixed hyperlipidemia (principal)
CPT/HCPCS: 36415; 80061; 84450; 84460